=== PATIENT | male | born 1965 | race Caucasian/White ===

== ENCOUNTER → 2016-12-05 | Outpatient (CLI) | payer BC, OTHER ==
[2016-12-05 10:05] LABS: Basophils % (A) 1 %; CH 31.6; CHCM 33.5; Eosinophils # (A) 0.2 k/uL (0-0.7); Eosinophils % (A) 2 %; HCT 44.2 % (39.0-53.0); HDW 2.91; HGB 14.5 gm/dL (13.0-17.5); Luc # (Auto) 0.22; Luc % (Auto) 3; Lymphocytes # (A) 1.7 k/uL (1.0-4.8); Lymphocytes % (A) 25 %; MCH 31.1 pg (25.0-35.0); MCHC 32.8 g/dL (31.0-37.0); Mean Platelet Volume 9.8; Monocytes # (A) 0.7 k/uL (0-1.0); Monocytes % (A) 10 %; Neutrophils # (A) 4.2 k/uL (1.3-7.7); Neutrophils % (A) 60 %; RBC 4.65 m/uL (4.30-5.90); RDW 14.5 % (11.5-15.5); WBC (Perox) 7.07
[2016-12-05 11:12] LABS: Erythrocyte Sedimentation Rate 2 mm/hr (0-15)
[2016-12-05 11:15] LABS: Hemoglobin A1C 5.4 % (4.2-6.1)
[2016-12-05 11:25] LABS: Anion Gap 12 mmol/L; C Reactive Protein <5.0 mg/L (<10.0); Calcium 9.2 mg/dL (8.4-10.2); Carbon Dioxide 24 mmol/L (22-30); Chloride 106 mmol/L (98-107); Cholesterol 105 mg/dL (<200); Creatine Kinase 93 U/L (55-170); Glucose 104 mg/dL (74-99); HDL Cholesterol 77 mg/dL (40-60); Non-African American GFR(MDRD) >60 (>60 ml/min/1.73 sqM); Sodium 142 mmol/L (137-145); Total Bilirubin 0.9 mg/dL (0.2-1.3); Total Protein 7.6 g/dL (6.3-8.2); Triglycerides 48 mg/dL (<150)
[2016-12-05 11:39] LABS: ALT 48 U/L (21-72); AST 30 U/L (17-59); Alkaline Phosphatase 63 U/L (38-126); Blood Urea Nitrogen 17 mg/dL (9-20); Magnesium 2.1 mg/dL (1.6-2.3); Potassium 4.8 mmol/L (3.5-5.1)
[2016-12-05 11:49] LABS: Prostate Specific Antigen 0.14 ng/mL (0.00-4.00)
== END | disposition home or self-care (01) ==
LOC: LABWHC1 08:46
PROVIDERS: ATTEND Internal Medicine
DX: D64.9 Anemia, unspecified (principal); E11.9 Type 2 diabetes mellitus without complications; E78.5 Hyperlipidemia, unspecified; I10 Essential (primary) hypertension; E03.9 Hypothyroidism, unspecified; E55.9 Vitamin D deficiency, unspecified
CPT/HCPCS: 36415; 80053; 80061; 82306; 82550; 83036; 83735; 84153; 85025; 85652; 86140

== ENCOUNTER 2017-01-05 17:44 | Emergency (ER) | payer BC ==
[2017-01-05 17:47] VITALS: BP 169/72; PULSE 58; RESP 18; TEMP 97
[2017-01-05] MEDS ORDERED: IBUPROFEN 800 MG TAB PO STA (18:03)
--- NOTE | 2017-01-05 18:19 | ED ---
URI HPI - General Chief Complaint: Upper Respiratory Infection Stated Complaint: Pain all over Time Seen by Provider: 01/05/17 17:53 Source: patient, RN notes reviewed Mode of arrival: ambulatory Limitations: no limitations - History of Present Illness Initial Comments: Patient is a 51-year-old male with a chief complaint of sore throat, cough, and pain all over for the past few days. He denies any fever. He states that he recently did have a headache. The patient has a history of prostate problems and diabetes. Patient reports that he has had a poor appetite today. He states that he has had a history of anemia as well. He states that when he felt this tired it was related to his anemia in the past. Patient denies any chest pain, shortness of breath, nausea, vomiting, abdominal pain. Patient denies any history of sick contacts. He denies any travel history. - Related Data Home Medications Medication Instructions Recorded Confirmed Nilotinib HCl [Tasigna] 300 mg PO BID 09/13/14 01/05/17 Atorvastatin [Lipitor] 40 mg PO DAILY 01/05/17 01/05/17 Ibuprofen [Motrin] 600 mg PO TID PRN 01/05/17 01/05/17 Ranitidine HCl 150 mg PO DAILY 01/05/17 01/05/17 Tamsulosin HCl [Flomax] 0.4 mg PO DAILY 01/05/17 01/05/17 metFORMIN HCL [Glucophage] 500 mg PO BID 01/05/17 01/05/17 Previous Rx's Medication Instructions Recorded Clopidogrel [Plavix] 75 mg PO DAILY #30 tab 10/12/15 Metoprolol Tartrate [Lopressor] 25 mg PO BID #60 tab 10/12/15 Nitroglycerin Sl Tabs [Nitrostat] 0.4 mg SUBLINGUAL Q5M PRN #25 tab 10/12/15 Azithromycin [Zithromax Z-pack] 250 mg PO DIRECTED #6 tab 01/05/17 methylPREDNISolone Dose Pack 4 mg PO DIRECTED #21 package 01/05/17 [Medrol Dose Pack] Allergies Allergy/AdvReac Type Severity Reaction Status Date / Time No Known Allergies Allergy Verified 01/05/17 17:47 Review of Systems ROS Statement: Those systems with pertinent positive or pertinent negative responses have been documented in the HPI. ROS Other: All systems not noted in ROS Statement are negative. Past Medical History Past Medical History: Chest Pain / Angina, Diabetes Mellitus, GERD/Reflux, Hypertension, Myocardial Infarction ([place]), Prostate Disorder Additional Past Medical History / Comment(s): patient states "I have prostate problems" Last Myocardial Infarction Date:: 10/09/2015 History of Any Multi-Drug Resistant Organisms: None Reported Past Surgical History: Appendectomy, Heart Catheterization With Stent Additional Past Surgical History / Comment(s): heart cath with 2 stents to circ. Past Anesthesia/Blood Transfusion Reactions: No Reported Reaction Date of Last Stent Placement:: 10/09/15 Past Psychological History: No Psychological Hx Reported Smoking Status: Never smoker Past Alcohol Use History: None Reported Past Drug Use History: None Reported - Past Family History Father Family Medical History: Diabetes Mellitus Mother Family Medical History: Diabetes Mellitus General Exam - General Exam Comments Initial Comments: Well-appearing 51-year-old male. No acute distress. Limitations: no limitations General appearance: alert, in no apparent distress Head exam: Present: atraumatic, normocephalic, normal inspection Eye exam: Present: normal appearance, PERRL, EOMI. Absent: scleral icterus, conjunctival injection, periorbital swelling ENT exam: Present: normal exam, mucous membranes moist Neck exam: Present: normal inspection. Absent: tenderness, meningismus, lymphadenopathy Respiratory exam: Present: normal lung sounds bilaterally. Absent: respiratory distress, wheezes, rales, rhonchi, stridor Cardiovascular Exam: Present: regular rate, normal rhythm, normal heart sounds. Absent: systolic murmur, diastolic murmur, rubs, gallop, clicks GI/Abdominal exam: Present: soft, normal bowel sounds. Absent: distended, tenderness, guarding, rebound, rigid Extremities exam: Present: normal inspection, full ROM, normal capillary refill. Absent: tenderness, pedal edema, joint swelling, calf tenderness Back exam: Present: normal inspection Neurological exam: Present: alert, oriented X3, CN II-XII intact Psychiatric exam: Present: normal affect, normal mood Skin exam: Present: warm, dry, intact, normal color. Absent: rash Course Vital Signs 01/05/17 17:45 Temperature 97.0 F L Pulse Rate 58 L Respiratory 18 Rate Blood Pressure 169/72 O2 Sat by Pulse 99 Oximetry Medical Decision Making - Medical Decision Making Patient is a 51-year-old male with a chief complaint of increased back pain and pain all over for the past few days. Patient states that he has had an increased cough and sore throat for the past day. He denies any fever. He states that he recently did have a headache. The patient has a history of prostate problems and diabetes. Patient reports that he has had a poor appetite today. He states that he has had a history of anemia as well. CBC and BMP obtained. No evidence of any acute abnormality is. Patient is negative influenza screen. Chest x-ray was also negative. Patient likely has a viral syndrome. Patient will be discharged with a prescription for Medrol Dosepak for his cough and azithromycin as this can talk as been persistent for the past few weeks. Patient agrees. I advised the patient he needs to follow up with primary care provider. Patient understands treatment plan will comply. Return parameters were discussed. - Lab Data Result diagrams: 01/05/17 18:15 01/05/17 18:15 Lab Results 01/05/17 01/05/17 01/05/17 Range/Units 18:15 18:15 18:15 WBC 4.8 (3.8-10.6) k/uL RBC 4.58 (4.30-5.90) m/uL Hgb 14.1 (13.0-17.5) gm/dL Hct 41.5 (39.0-53.0) % MCV 90.5 (80.0-100.0) fL MCH 30.8 (25.0-35.0) pg MCHC 34.0 (31.0-37.0) g/dL RDW 13.2 (11.5-15.5) % Plt Count 162 (150-450) k/uL Neutrophils % 56 % Lymphocytes % 29 % Monocytes % 9 % Eosinophils % 3 % Basophils % 0 % Neutrophils # 2.7 (1.3-7.7) k/uL Lymphocytes # 1.4 (1.0-4.8) k/uL Monocytes # 0.4 (0-1.0) k/uL Eosinophils # 0.1 (0-0.7) k/uL Basophils # 0.0 (0-0.2) k/uL Sodium 139 (137-145) mmol/L Potassium 3.6 (3.5-5.1) mmol/L Chloride 105 (98-107) mmol/L Carbon Dioxide 23 (22-30) mmol/L Anion Gap 11 mmol/L BUN 16 (9-20) mg/dL Creatinine 0.61 L (0.66-1.25) mg/dL Est GFR (MDRD) Af Amer >60 (>60 ml/min/1.73 sqM) Est GFR (MDRD) Non-Af >60 (>60 ml/min/1.73 sqM) Glucose 124 H (74-99) mg/dL Calcium 9.0 (8.4-10.2) mg/dL Urine Color Urine Appearance (Clear) Urine pH (5.0-8.0) Ur Specific [place] (1.001-1.035) Urine Protein (Negative) Urine Glucose (UA) (Negative) Urine Ketones (Negative) Urine Blood (Negative) Urine Nitrite (Negative) Urine Bilirubin (Negative) Urine Urobilinogen (<2.0) mg/dL Ur Leukocyte Esterase (Negative) Influenza Type A RNA Not Detected (Not Detectd) Influenza Type B (PCR) Not Detected (Not Detectd) 01/05/17 Range/Units 18:50 WBC (3.8-10.6) k/uL RBC (4.30-5.90) m/uL Hgb (13.0-17.5) gm/dL Hct (39.0-53.0) % MCV (80.0-100.0) fL MCH (25.0-35.0) pg MCHC (31.0-37.0) g/dL RDW (11.5-15.5) % Plt Count (150-450) k/uL Neutrophils % % Lymphocytes % % Monocytes % % Eosinophils % % Basophils % % Neutrophils # (1.3-7.7) k/uL Lymphocytes # (1.0-4.8) k/uL Monocytes # (0-1.0) k/uL Eosinophils # (0-0.7) k/uL Basophils # (0-0.2) k/uL Sodium (137-145) mmol/L Potassium (3.5-5.1) mmol/L Chloride (98-107) mmol/L Carbon Dioxide (22-30) mmol/L Anion Gap mmol/L BUN (9-20) mg/dL Creatinine (0.66-1.25) mg/dL Est GFR (MDRD) Af Amer (>60 ml/min/1.73 sqM) Est GFR (MDRD) Non-Af (>60 ml/min/1.73 sqM) Glucose (74-99) mg/dL Calcium (8.4-10.2) mg/dL Urine Color Yellow Urine Appearance Clear (Clear) Urine pH 6.5 (5.0-8.0) Ur Specific [place] 1.015 (1.001-1.035) Urine Protein Negative (Negative) Urine Glucose (UA) 3+ H (Negative) Urine Ketones Negative (Negative) Urine Blood Negative (Negative) Urine Nitrite Negative (Negative) Urine Bilirubin Negative (Negative) Urine Urobilinogen 2.0 (<2.0) mg/dL Ur Leukocyte Esterase Negative (Negative) Influenza Type A RNA (Not Detectd) Influenza Type B (PCR) (Not Detectd) - Radiology Data Radiology results: report reviewed Chest x-ray shows a normal chest. No change. Disposition Clinical Impression: Upper respiratory infection, Fatigue Disposition: HOME SELF-CARE Condition: Good Instructions: Upper Respiratory Infection (ED) Additional Instructions: Patient advised to follow up with primary care provider. Take medication as prescribed. Return to emergency department course signs or symptoms occur. Prescriptions: Azithromycin [Zithromax Z-pack] 250 mg PO DIRECTED #6 tab methylPREDNISolone Dose Pack [Medrol Dose Pack] 4 mg PO DIRECTED #21 package Referrals: Bennett Tran MD [Primary Care Provider] - 1-2 days Time of Disposition: 19:15
[2017-01-05 18:32] LABS: Basophils % (A) 0 %; CHCM 34.4; Eosinophils # (A) 0.1 k/uL (0-0.7); Eosinophils % (A) 3 %; HCT 41.5 % (39.0-53.0); HDW 2.71; HGB 14.1 gm/dL (13.0-17.5); Luc # (Auto) 0.19; Luc % (Auto) 4; Lymphocytes # (A) 1.4 k/uL (1.0-4.8); Lymphocytes % (A) 29 %; MCH 30.8 pg (25.0-35.0); MCV 90.5 fL (80.0-100.0); Monocytes # (A) 0.4 k/uL (0-1.0); Monocytes % (A) 9 %; Neutrophils # (A) 2.7 k/uL (1.3-7.7); Neutrophils % (A) 56 %; RBC 4.58 m/uL (4.30-5.90); RDW 13.2 % (11.5-15.5); WBC 4.8 k/uL (3.8-10.6); WBC (Perox) 4.74
--- NOTE | 2017-01-05 18:40 | XR ---
EXAMINATION TYPE: XR chest 2V DATE OF EXAM: 01/05/2017 6:37 PM COMPARISON: 06/15/2016 HISTORY: Cough TECHNIQUE: Frontal and lateral views of the chest are obtained. FINDINGS: Heart and mediastinum are normal. Lungs are clear. Diaphragm is normal. Bony thorax is int act. IMPRESSION: Normal chest. No change.
[2017-01-05 18:45] LABS: Anion Gap 11 mmol/L; Blood Urea Nitrogen 16 mg/dL (9-20); Carbon Dioxide 23 mmol/L (22-30); Chloride 105 mmol/L (98-107); Glucose 124 mg/dL (74-99); Non-African American GFR(MDRD) >60 (>60 ml/min/1.73 sqM); Potassium 3.6 mmol/L (3.5-5.1); Sodium 139 mmol/L (137-145)
[2017-01-05 19:07] LABS: Appearance,Urine Clear (Clear); Bilirubin,Urine Negative (Negative); Glucose,Urine (UA) 3+ (Negative); Ketones,Urine Negative (Negative); Leukocyte Esterase,Urine Negative (Negative); Nitrite,Urine Negative (Negative); PH, Urine 6.5 (5.0-8.0); Protein,Urine Negative (Negative); Specific Gravity,Urine 1.015 (1.001-1.035); UA Billing (MACRO vs. MICRO) CHEM
[2017-01-05] MEDS ORDERED: ACETAMINOPHEN TAB 500 MG TAB PO STA (19:24)
== END 2017-01-05 19:31 | disposition home or self-care (01) ==
LOC: EC 17:44
DX: J06.9 Acute upper respiratory infection, unspecified (principal); R53.83 Other fatigue; I10 Essential (primary) hypertension; E11.9 Type 2 diabetes mellitus without complications; K21.9 Gastro-esophageal reflux disease without esophagitis; N42.9 Disorder of prostate, unspecified; Z95.5 Presence of coronary angioplasty implant and graft; Z79.02 Long term (current) use of antithrombotics/antiplatelets; Z79.899 Other long term (current) drug therapy; Z79.84 Long term (current) use of oral hypoglycemic drugs
CPT/HCPCS: 36415; 71020; 80048; 81003; 85025; 87502; 99283

== ENCOUNTER → 2017-01-05 | Outpatient (CLI) | payer BC ==
--- NOTE | 2017-01-05 11:30 | US ---
EXAMINATION TYPE: US scrotum with doppler. Grayscale and color Doppler Duplex imaging performed of chris ziegler scrotum. DATE OF EXAM: 01/05/2017 11:17 AM COMPARISON: NONE CLINICAL HISTORY: L TESTICLE NODULE N50.9. EXAM MEASUREMENTS: TESTICLES: Right Testicle: 3.4 x 2.1 x 2.8 cm Left Testicle: 2.9 x 2.3 x 2.7 cm cyst measuring 0.3 x 0.3 x 0.3cm EPIDIDYMIS HEAD: Right Epididymis: 1.0 cm Left Epididymis: 1.0 cm cyst measuring 0.4cm There was normal vascular flow present bilaterally. Presence of hydroceles: no Presence of varicoceles: no IMPRESSION: 1. SMALL LEFT-SIDED INTRATESTICULAR CYST MEASURING 3 MM. 2. 4 MM LEFT EPIDIDYMAL CYST. THESE FINDINGS WERE PRESENT PREVIOUSLY.
== END | disposition home or self-care (01) ==
LOC: RADUSWWP 08:56
PROVIDERS: ATTEND Internal Medicine
DX: N50.3 Cyst of epididymis (principal)
CPT/HCPCS: 76870; 93975

== ENCOUNTER → 2017-03-30 | Outpatient (CLI) | payer BC ==
[2017-03-30 13:03] LABS: Basophils % (A) 1 %; CH 31.3; Eosinophils # (A) 0.1 k/uL (0-0.7); Eosinophils % (A) 2 %; HCT 44.6 % (39.0-53.0); HDW 2.64; HGB 14.7 gm/dL (13.0-17.5); Luc # (Auto) 0.14; Luc % (Auto) 3; Lymphocytes % (A) 21 %; MCH 30.6 pg (25.0-35.0); MCV 92.7 fL (80.0-100.0); Mean Platelet Volume 8.6; Monocytes # (A) 0.4 k/uL (0-1.0); Monocytes % (A) 9 %; Neutrophils # (A) 3.1 k/uL (1.3-7.7); Neutrophils % (A) 65 %; RBC 4.81 m/uL (4.30-5.90); RDW 14.1 % (11.5-15.5); WBC 4.8 k/uL (3.8-10.6); WBC (Perox) 4.66
[2017-03-30 13:25] LABS: ALT 69 U/L (21-72); AST 30 U/L (17-59); Alkaline Phosphatase 92 U/L (38-126); Anion Gap 12 mmol/L; Blood Urea Nitrogen 13 mg/dL (9-20); C Reactive Protein <5.0 mg/L (<10.0); Calcium 9.5 mg/dL (8.4-10.2); Carbon Dioxide 24 mmol/L (22-30); Chloride 102 mmol/L (98-107); Cholesterol 118 mg/dL (<200); Creatine Kinase 47 U/L (55-170); Glucose 230 mg/dL (74-99); HDL Cholesterol 72 mg/dL (40-60); Non-African American GFR(MDRD) >60 (>60 ml/min/1.73 sqM); Sodium 138 mmol/L (137-145); Total Bilirubin 1.5 mg/dL (0.2-1.3); Triglycerides 64 mg/dL (<150)
[2017-03-30 13:45] LABS: Prostate Specific Antigen 0.12 ng/mL (0.00-4.00)
[2017-03-30 16:52] LABS: Erythrocyte Sedimentation Rate 5 mm/hr (0-15)
[2017-03-30 17:30] LABS: Hemoglobin A1C 7.6 % (4.2-6.1)
== END | disposition home or self-care (01) ==
LOC: LABWHC1 12:25
PROVIDERS: ATTEND Internal Medicine
DX: E78.5 Hyperlipidemia, unspecified (principal); C92.10 Chronic myeloid leukemia, BCR/ABL-positive, not having achieved remission; D64.9 Anemia, unspecified; E11.9 Type 2 diabetes mellitus without complications; E55.9 Vitamin D deficiency, unspecified
CPT/HCPCS: 36415; 80053; 80061; 82306; 82550; 83036; 84153; 85025; 85652; 86140

== ENCOUNTER 2017-05-10 16:57 | Observation (INO) | payer BC ==
[2017-05-10] MEDS ORDERED: SODIUM CHLORIDE 0.9% 1,000 ML IV STA (17:35)
[2017-05-10] MEDS ORDERED: ASPIRIN 81 MG CHEW PO STA (17:35)
--- NOTE | 2017-05-10 17:38 | ED ---
General Adult HPI - General Source: patient, family, RN notes reviewed Mode of arrival: wheelchair Limitations: language barrier <Dana Parmar - Last Filed: 05/10/17 20:20> <Joshua Grace - Last Filed: 05/10/17 20:43> - General Chief complaint: Recheck/Abnormal Lab/Rx Stated complaint: All Over Pain Time Seen by Provider: 05/10/17 17:20 - History of Present Illness Initial comments: Patient is a 51-year-old male presents emergency room for evaluation of all over body pain. Patient states pain began about 3 days ago. Patient states he has pain in his neck, chest and all of his joints. Patient denies throat pain, ear pain, headache, dizziness, changes in vision, nausea, vomiting, fevers. Patient does state he is having the chills. Patient states that he's been having chest pain for the past 3 days. Patient states he has a history of CT about a year ago and had 2 stents placed. Patient states it feels like a knife stabbing his chest. Patient states he feels slightly short of breath. Patient denies smoking. Patient denies alcohol or drug use. Patient denies abdominal pain. Patient denies pain or burning during urination, trouble urinating or blood in urine. Patient denies constipation or diarrhea. Patient states he taking ibuprofen with little relief of symptoms. (Dana Parmar) - Related Data Home Medications Medication Instructions Recorded Confirmed Nilotinib HCl [Tasigna] 300 mg PO BID 09/13/14 05/10/17 Atorvastatin [Lipitor] 40 mg PO DAILY 01/05/17 05/10/17 Tamsulosin HCl [Flomax] 0.4 mg PO DAILY 01/05/17 05/10/17 metFORMIN HCL [Glucophage] 500 mg PO BID 01/05/17 05/10/17 Olopatadine HCl [Pataday] 1 drop BOTH EYES BID 05/10/17 05/10/17 Previous Rx's Medication Instructions Recorded Clopidogrel [Plavix] 75 mg PO DAILY #30 tab 10/12/15 Nitroglycerin Sl Tabs [Nitrostat] 0.4 mg SUBLINGUAL Q5M PRN #25 tab 10/12/15 Allergies Allergy/AdvReac Type Severity Reaction Status Date / Time No Known Allergies Allergy Verified 05/10/17 17:26 Review of Systems ROS Other: All systems not noted in ROS Statement are negative. <Dana Parmar - Last Filed: 05/10/17 20:20> ROS Other: All systems not noted in ROS Statement are negative. <Joshua Grace - Last Filed: 05/10/17 20:43> ROS Statement: Those systems with pertinent positive or pertinent negative responses have been documented in the HPI. Past Medical History Past Medical History: Chest Pain / Angina, Diabetes Mellitus, GERD/Reflux, Hypertension, Myocardial Infarction ([place]), Prostate Disorder Additional Past Medical History / Comment(s): patient states "I have prostate problems" Last Myocardial Infarction Date:: 10/09/2015 History of Any Multi-Drug Resistant Organisms: None Reported Past Surgical History: Appendectomy, Heart Catheterization With Stent Additional Past Surgical History / Comment(s): heart cath with 2 stents to circ. Past Anesthesia/Blood Transfusion Reactions: No Reported Reaction Date of Last Stent Placement:: 10/09/15 Past Psychological History: No Psychological Hx Reported Smoking Status: Never smoker Past Alcohol Use History: None Reported Past Drug Use History: None Reported - Past Family History Father Family Medical History: Diabetes Mellitus Mother Family Medical History: Diabetes Mellitus <Dana Parmar - Last Filed: 05/10/17 20:20> General Exam Limitations: language barrier General appearance: alert, in no apparent distress Head exam: Present: atraumatic, normocephalic, normal inspection Eye exam: Present: normal appearance ENT exam: Present: normal exam Neck exam: Present: normal inspection Respiratory exam: Present: normal lung sounds bilaterally, chest wall tenderness. Absent: respiratory distress Cardiovascular Exam: Present: regular rate, normal rhythm, normal heart sounds GI/Abdominal exam: Present: soft, normal bowel sounds. Absent: distended, tenderness, guarding, rebound, rigid Extremities exam: Present: normal inspection Back exam: Present: normal inspection Neurological exam: Present: alert, oriented X3, CN II-XII intact, normal gait Psychiatric exam: Present: normal affect, normal mood Skin exam: Present: warm, dry, intact, normal color. Absent: rash <Dana Parmar - Last Filed: 05/10/17 20:20> <Joshua Grace - Last Filed: 05/10/17 20:43> - General Exam Comments Initial Comments: Sitting in exam room, no acute distress. (Dana Parmar) EKG Findings - EKG Comments: EKG Findings:: Normal sinus rhythm, ventricular rate 64 bpm, HI interval 138 milliseconds, QRS duration 92 ms, QT/QTc 408/420 ms <Dana Parmar - Last Filed: 05/10/17 20:20> Medical Decision Making - Lab Data Result diagrams: 05/10/17 17:50 05/10/17 17:50 <Dana Parmar - Last Filed: 05/10/17 20:20> - Lab Data Result diagrams: 05/10/17 17:50 05/10/17 17:50 <Joshua Grace - Last Filed: 05/10/17 20:43> - Medical Decision Making I spoke with Dr. Calderon aren't this patient be admitted his service for atypical chest pain with repeat cardiac enzymes and potassium supplementation. Dr. Grace (Joshua Grace) - Lab Data Lab Results 05/10/17 05/10/17 05/10/17 Range/Units 17:50 17:50 17:50 WBC 3.9 (3.8-10.6) k/uL RBC 4.33 (4.30-5.90) m/uL Hgb 13.4 (13.0-17.5) gm/dL Hct 39.2 (39.0-53.0) % MCV 90.6 (80.0-100.0) fL MCH 31.0 (25.0-35.0) pg MCHC 34.2 (31.0-37.0) g/dL RDW 14.5 (11.5-15.5) % Plt Count 166 (150-450) k/uL Neutrophils % 50 % Lymphocytes % 35 % Monocytes % 9 % Eosinophils % 2 % Basophils % 0 % Neutrophils # 2.0 (1.3-7.7) k/uL Lymphocytes # 1.4 (1.0-4.8) k/uL Monocytes # 0.3 (0-1.0) k/uL Eosinophils # 0.1 (0-0.7) k/uL Basophils # 0.0 (0-0.2) k/uL PT (9.0-12.0) sec INR (<1.2) APTT (22.0-30.0) sec D-Dimer (<0.60) mg/L FEU Sodium 136 L (137-145) mmol/L Potassium 3.3 L (3.5-5.1) mmol/L Chloride 104 (98-107) mmol/L Carbon Dioxide 24 (22-30) mmol/L Anion Gap 8 mmol/L BUN 12 (9-20) mg/dL Creatinine 0.65 L (0.66-1.25) mg/dL Est GFR (MDRD) Af Amer >60 (>60 ml/min/1.73 sqM) Est GFR (MDRD) Non-Af >60 (>60 ml/min/1.73 sqM) Glucose 252 H (74-99) mg/dL Calcium 8.7 (8.4-10.2) mg/dL Magnesium 1.8 (1.6-2.3) mg/dL Total Bilirubin 1.6 H (0.2-1.3) mg/dL AST 44 (17-59) U/L ALT 109 H (21-72) U/L Alkaline Phosphatase 76 (38-126) U/L Total Creatine Kinase 92 (55-170) U/L CK-MB (CK-2) 1.3 (0.0-2.4) ng/mL CK-MB (CK-2) Rel Index 1.4 Troponin I <0.012 (0.000-0.034) ng/mL Total Protein 6.3 (6.3-8.2) g/dL Albumin 3.7 (3.5-5.0) g/dL 05/10/17 Range/Units 17:50 WBC (3.8-10.6) k/uL RBC (4.30-5.90) m/uL Hgb (13.0-17.5) gm/dL Hct (39.0-53.0) % MCV (80.0-100.0) fL MCH (25.0-35.0) pg MCHC (31.0-37.0) g/dL RDW (11.5-15.5) % Plt Count (150-450) k/uL Neutrophils % % Lymphocytes % % Monocytes % % Eosinophils % % Basophils % % Neutrophils # (1.3-7.7) k/uL Lymphocytes # (1.0-4.8) k/uL Monocytes # (0-1.0) k/uL Eosinophils # (0-0.7) k/uL Basophils # (0-0.2) k/uL PT 11.2 (9.0-12.0) sec INR 1.1 (<1.2) APTT 25.7 (22.0-30.0) sec D-Dimer <0.17 (<0.60) mg/L FEU Sodium (137-145) mmol/L Potassium (3.5-5.1) mmol/L Chloride (98-107) mmol/L Carbon Dioxide (22-30) mmol/L Anion Gap mmol/L BUN (9-20) mg/dL Creatinine (0.66-1.25) mg/dL Est GFR (MDRD) Af Amer (>60 ml/min/1.73 sqM) Est GFR (MDRD) Non-Af (>60 ml/min/1.73 sqM) Glucose (74-99) mg/dL Calcium (8.4-10.2) mg/dL Magnesium (1.6-2.3) mg/dL Total Bilirubin (0.2-1.3) mg/dL AST (17-59) U/L ALT (21-72) U/L Alkaline Phosphatase (38-126) U/L Total Creatine Kinase (55-170) U/L CK-MB (CK-2) (0.0-2.4) ng/mL CK-MB (CK-2) Rel Index Troponin I (0.000-0.034) ng/mL Total Protein (6.3-8.2) g/dL Albumin (3.5-5.0) g/dL Disposition Decision Date: 05/10/17 <Dana Parmar - Last Filed: 05/10/17 20:20> <Joshua Grace - Last Filed: 05/10/17 20:43> Clinical Impression: Atypical chest pain Disposition: ADMITTED IP TO THIS [facility] Condition: Stable Referrals: Alexis Bean MD [Primary Care Provider] - 1-2 days
[2017-05-10 18:05] LABS: Basophils % (A) 0 %; CH 31.8; CHCM 35.3; Eosinophils # (A) 0.1 k/uL (0-0.7); Eosinophils % (A) 2 %; HCT 39.2 % (39.0-53.0); HDW 2.77; HGB 13.4 gm/dL (13.0-17.5); Luc # (Auto) 0.14; Luc % (Auto) 4; Lymphocytes # (A) 1.4 k/uL (1.0-4.8); Lymphocytes % (A) 35 %; MCHC 34.2 g/dL (31.0-37.0); MCV 90.6 fL (80.0-100.0); Mean Platelet Volume 9.4; Monocytes # (A) 0.3 k/uL (0-1.0); Monocytes % (A) 9 %; Neutrophils % (A) 50 %; RBC 4.33 m/uL (4.30-5.90); RDW 14.5 % (11.5-15.5); WBC 3.9 k/uL (3.8-10.6); WBC (Perox) 3.88
--- NOTE | 2017-05-10 18:09 | XR ---
EXAMINATION TYPE: XR chest 2V DATE OF EXAM: 05/10/2017 COMPARISON: Prior chest x-ray 01/05/2017 HISTORY: Chest pain TECHNIQUE: Frontal and lateral views of the chest are obtained. FINDINGS: There is no focal air space opacity, pleural effusion, or pneumothorax seen. The cardiac silhouette size is within normal limits. The osseous structures are intact. IMPRESSION: No acute cardiopulmonary process.
[2017-05-10 18:15] LABS: ALT 109 U/L (21-72); AST 44 U/L (17-59); Alkaline Phosphatase 76 U/L (38-126); Anion Gap 8 mmol/L; Blood Urea Nitrogen 12 mg/dL (9-20); Calcium 8.7 mg/dL (8.4-10.2); Carbon Dioxide 24 mmol/L (22-30); Chloride 104 mmol/L (98-107); Glucose 252 mg/dL (74-99); Magnesium 1.8 mg/dL (1.6-2.3); Non-African American GFR(MDRD) >60 (>60 ml/min/1.73 sqM); Potassium 3.3 mmol/L (3.5-5.1); Sodium 136 mmol/L (137-145); Total Bilirubin 1.6 mg/dL (0.2-1.3); Total Protein 6.3 g/dL (6.3-8.2)
[2017-05-10 18:19] LABS: INR 1.1 (<1.2); Partial Thromboplastin Time 25.7 sec (22.0-30.0); Prothrombin Time 11.2 sec (9.0-12.0)
[2017-05-10 18:58] LABS: Creatine Kinase 92 U/L (55-170)
[2017-05-10 19:12] LABS: Creatine Kinase MB 1.3 ng/mL (0.0-2.4); Troponin I <0.012 ng/mL (0.000-0.034)
[2017-05-10] MEDS ORDERED: POTASSIUM CHLORIDE ER 20 MEQ TAB.ER PO STA (19:41)
[2017-05-10] MEDS ORDERED: ONDANSETRON 4 MG/2 ML VIAL IVP PRN (20:15)
[2017-05-10] MEDS ORDERED: ACETAMINOPHEN TAB 325 MG TAB PO PRN (20:15)
[2017-05-10] MEDS ORDERED: KETOROLAC 30 MG/ML 1 ML VIAL IVP PRN (20:15)
[2017-05-10] MEDS ORDERED: MORPHINE SULFATE 4 MG/ML SYRINGE IV PRN (20:15)
[2017-05-10] MEDS ORDERED: NALOXONE 0.4 MG/ML 1 ML VIAL IV PRN (20:15)
[2017-05-10] MEDS ORDERED: NITROGLYCERIN SL TABS 0.4 MG TAB SUBLINGUAL PRN (20:18)
[2017-05-10 21:00] VITALS: RESP 16
[2017-05-10] MEDS ORDERED: NILOTINIB HCL 300 MG PO SCH (21:00)
[2017-05-10 21:21] LABS: Glucose,Whole Blood 148 mg/dL (75-99)
[2017-05-10 22:30] VITALS: BMI 19.2
[2017-05-10 22:35] LABS: Hemoglobin A1C 7.4 % (4.2-6.1)
[2017-05-10] MEDS: SODIUM CHLORIDE 0.9% 1,000 ML IV SCH (23:39)
[2017-05-10] MEDS: KETOTIFEN 0.025% OPHTH DROPS 5 ML BTL BOTH EYES SCH (23:40)
[2017-05-11] MEDS ORDERED: HEPARIN SODIUM,PORCINE 5,000 UNIT/ML 1 ML VIAL IV STA (00:14)
[2017-05-11 01:18] LABS: Creatine Kinase 95 U/L (55-170)
[2017-05-11 01:30] LABS: Creatine Kinase MB 1.5 ng/mL (0.0-2.4); Troponin I <0.012 ng/mL (0.000-0.034)
[2017-05-11 06:06] LABS: Creatine Kinase 82 U/L (55-170)
[2017-05-11 06:19] LABS: Creatine Kinase MB 1.4 ng/mL (0.0-2.4); Troponin I <0.012 ng/mL (0.000-0.034)
[2017-05-11 06:59] LABS: Glucose,Whole Blood 111 mg/dL (75-99)
[2017-05-11] MEDS: SODIUM CHLORIDE 0.9% 1,000 ML IV SCH (08:22)
[2017-05-11] MEDS ORDERED: CLOPIDOGREL 75 MG TAB PO SCH (09:00)
[2017-05-11] MEDS ORDERED: ATORVASTATIN 40 MG TAB PO SCH (09:00)
[2017-05-11] MEDS ORDERED: TAMSULOSIN 0.4 MG CAP.ER.24H PO SCH (09:00)
[2017-05-11 09:25] LABS: Basophils % (A) 0 %; CH 31.3; CHCM 33.6; Eosinophils # (A) 0.1 k/uL (0-0.7); Eosinophils % (A) 2 %; HCT 41.4 % (39.0-53.0); HDW 2.79; HGB 13.9 gm/dL (13.0-17.5); Luc # (Auto) 0.16; Luc % (Auto) 3; Lymphocytes # (A) 1.4 k/uL (1.0-4.8); Lymphocytes % (A) 30 %; MCH 31.5 pg (25.0-35.0); MCHC 33.6 g/dL (31.0-37.0); MCV 93.6 fL (80.0-100.0); Monocytes # (A) 0.6 k/uL (0-1.0); Monocytes % (A) 12 %; Neutrophils # (A) 2.4 k/uL (1.3-7.7); Neutrophils % (A) 52 %; RBC 4.43 m/uL (4.30-5.90); RDW 13.8 % (11.5-15.5); WBC 4.7 k/uL (3.8-10.6); WBC (Perox) 4.93
[2017-05-11 09:29] LABS: ALT 105 U/L (21-72); AST 41 U/L (17-59); Alkaline Phosphatase 70 U/L (38-126); Anion Gap 8 mmol/L; Blood Urea Nitrogen 11 mg/dL (9-20); Calcium 8.6 mg/dL (8.4-10.2); Carbon Dioxide 19 mmol/L (22-30); Chloride 112 mmol/L (98-107); Glucose 110 mg/dL (74-99); Non-African American GFR(MDRD) >60 (>60 ml/min/1.73 sqM); Sodium 139 mmol/L (137-145); Total Bilirubin 0.9 mg/dL (0.2-1.3); Total Protein 6.2 g/dL (6.3-8.2)
[2017-05-11] MEDS: INSULIN LISPRO (humaLOG) 300 UNIT/3 ML VIAL SQ SCH ×2 (10:07→12:51)
--- NOTE | 2017-05-11 10:27 | P.CRDCN ---
History of Present Illness Consult date: 05/11/17 History of present illness: This is a 51-year-old gentleman with history of ischemic heart disease and previous stent placement done in 2014, came to the emergency room with complaints of generalized body aches, back pain and leg pain. His potassium slightly low. The pains and up have been going on for some time. His cardiac enzymes are negative. EKGs did not reveal any acute changes. His potassium is corrected. Patient is advised to eat couple of banal onset a to correct his hypokalemia. Patient is advised to hold Lipitor for 10 days until he sees Dr. Deleon. The pains may be related to his Lipitor. From Cardec standpoint patient could be discharged home. He recently had a stress echo that was negative for ischemia. Past Medical History Past Medical History: Chest Pain / Angina, Diabetes Mellitus, GERD/Reflux, Hypertension, Myocardial Infarction ([place]), Prostate Disorder Additional Past Medical History / Comment(s): patient states "I have prostate problems" Last Myocardial Infarction Date:: 10/09/2015 History of Any Multi-Drug Resistant Organisms: None Reported Past Surgical History: Appendectomy, Heart Catheterization With Stent Additional Past Surgical History / Comment(s): heart cath with 2 stents to circ. Past Anesthesia/Blood Transfusion Reactions: No Reported Reaction Date of Last Stent Placement:: 10/09/15 Past Psychological History: No Psychological Hx Reported Smoking Status: Never smoker Past Alcohol Use History: None Reported Past Drug Use History: None Reported - Past Family History Father Family Medical History: Diabetes Mellitus Mother Family Medical History: Diabetes Mellitus Medications and Allergies Home Medications Medication Instructions Recorded Confirmed Type Nilotinib HCl [Tasigna] 300 mg PO BID 09/13/14 05/10/17 History Atorvastatin [Lipitor] 40 mg PO HS 01/05/17 05/10/17 History Tamsulosin HCl [Flomax] 0.4 mg PO DAILY 01/05/17 05/10/17 History metFORMIN HCL [Glucophage] 500 mg PO BID 01/05/17 05/10/17 History Aspirin EC [Ecotrin Low Dose] 81 mg PO DAILY 05/10/17 05/10/17 History Metoprolol Tartrate 25 mg PO BID 05/10/17 05/10/17 History Olopatadine HCl [Pataday] 1 drop BOTH EYES BID 05/10/17 05/10/17 History Allergies Allergy/AdvReac Type Severity Reaction Status Date / Time No Known Allergies Allergy Verified 05/10/17 17:26 Physical Exam Vitals: Vital Signs Temp Pulse Pulse Resp BP BP Pulse Ox 05/11/17 09:11 95 05/11/17 07:49 97.6 F 50 L 16 132/61 98 05/11/17 04:00 54 L 16 05/11/17 03:24 98.1 F 69 16 123/57 98 05/11/17 00:00 56 L 16 05/10/17 23:46 97.7 F 56 L 16 116/48 100 05/10/17 23:15 54 L 16 05/10/17 21:13 97.7 F 52 L 16 139/61 100 05/10/17 20:59 97.5 F L 84 16 132/70 98 05/10/17 19:11 97.4 F L 53 L 20 120/59 100 05/10/17 17:12 97.2 F L 70 17 135/63 100 Intake and Output 05/10/17 05/11/17 05/11/17 22:59 06:59 14:59 Intake Total 800 Balance 800 Intake: Intake, IV Titration 800 Amount Sodium Chloride 0.9% 1, 800 000 ml @ 100 mls/hr IV . Q10H [facility] Rx#:[id number] Other: Voiding Method Toilet # Voids 1 2 Weight 50.802 kg 50.802 kg Patient Weight 05/12/17 06:59 Weight 50.802 kg GENERAL EXAM: Patient is alert and oriented and doesn't appear to be in any acute distress HEENT: Normocephalic. Normal reaction of pupils, equal size, normal range of extraocular motion. No erythema or exudates in the throat. NECK: No masses, no nuchal rigidity. CHEST: No chest wall deformity. LUNGS: Equal air entry with no crackles or wheeze. HEART: S1 and S2 normal with no audible mumurs or gallops. Regular rhythm, femorals equal on both sides.. ABDOMEN: No hepatosplenomegaly, normal bowel sounds, no guarding or rigidity. SKIN: No rashes CENTRAL NERVOUS SYSTEM: No focal deficits. EXTREMITIES: No cyanosis, clubbing or edema. Results 05/11/17 05:28 05/11/17 05:28 Cardiac Enzymes 05/10/17 05/10/17 05/11/17 Range/Units 17:50 17:50 00:14 AST 44 (17-59) U/L CK-MB (CK-2) 1.3 1.5 (0.0-2.4) ng/mL Troponin I <0.012 <0.012 (0.000-0.034) ng/mL 05/11/17 05/11/17 Range/Units 05:28 05:28 AST 41 (17-59) U/L CK-MB (CK-2) 1.4 (0.0-2.4) ng/mL Troponin I <0.012 (0.000-0.034) ng/mL Coagulation 05/10/17 Range/Units 17:50 PT 11.2 (9.0-12.0) sec APTT 25.7 (22.0-30.0) sec CBC 05/10/17 05/11/17 Range/Units 17:50 05:28 WBC 3.9 4.7 (3.8-10.6) k/uL RBC 4.33 4.43 (4.30-5.90) m/uL Hgb 13.4 13.9 (13.0-17.5) gm/dL Hct 39.2 41.4 (39.0-53.0) % Plt Count 166 182 (150-450) k/uL Comprehensive Metabolic Panel 05/10/17 05/11/17 Range/Units 17:50 05:28 Sodium 136 L 139 (137-145) mmol/L Potassium 3.3 L 4.0 (3.5-5.1) mmol/L Chloride 104 112 H (98-107) mmol/L Carbon Dioxide 24 19 L (22-30) mmol/L BUN 12 11 (9-20) mg/dL Creatinine 0.65 L 0.55 L (0.66-1.25) mg/dL Glucose 252 H 110 H (74-99) mg/dL Calcium 8.7 8.6 (8.4-10.2) mg/dL AST 44 41 (17-59) U/L ALT 109 H 105 H (21-72) U/L Alkaline Phosphatase 76 70 (38-126) U/L Total Protein 6.3 6.2 L (6.3-8.2) g/dL Albumin 3.7 3.6 (3.5-5.0) g/dL Current Medications Generic Name Dose Route Start Last Admin Trade Name Freq PRN Reason Stop Dose Admin Acetaminophen 650 mg 05/10/17 20:15 Tylenol Tab PO Q6HR PRN Mild Pain or Fever > 100.5 Atorvastatin Calcium 40 mg 05/11/17 09:00 Lipitor PO DAILY [facility] Clopidogrel Bisulfate 75 mg 05/11/17 09:00 Plavix PO DAILY [facility] Sodium Chloride 1,000 mls @ 100 mls/hr 05/10/17 20:15 05/11/17 08:22 Saline 0.9% IV Not Given .Q10H [facility] Insulin Human Lispro 0 unit 05/11/17 07:30 05/11/17 10:07 Humalog SQ Not Given ACHS [facility] Protocol Ketotifen Fumarate 1 drops 05/10/17 21:00 05/10/17 23:40 Zaditor BOTH EYES Not Given BID [facility] Morphine Sulfate 4 mg 05/10/17 20:15 Morphine Sulfate (Inj) IV Q4HR PRN Severe Pain Naloxone HCl 0.2 mg 05/10/17 20:15 Narcan IV Q2M PRN Opioid Reversal Nitroglycerin 0.4 mg 05/10/17 20:18 Nitrostat SUBLINGUAL Q5M PRN Chest Pain Non-Formulary Medication 300 mg 05/10/17 21:00 Nilotinib Hcl [Tasigna] PO BID [facility] Ondansetron HCl 4 mg 05/10/17 20:15 Zofran IVP Q8HR PRN Nausea And Vomiting Tamsulosin HCl 0.4 mg 05/11/17 09:00 Flomax PO DAILY [facility] Intake and Output 05/10/17 05/11/17 05/11/17 22:59 06:59 14:59 Intake Total 800 Balance 800 Intake: Intake, IV Titration 800 Amount Sodium Chloride 0.9% 1, 800 000 ml @ 100 mls/hr IV . Q10H [facility] Rx#:[id number] Other: Voiding Method Toilet # Voids 1 2 Weight 50.802 kg 50.802 kg Patient Weight 05/12/17 06:59 Weight 50.802 kg 05/11/17 05:28 05/11/17 05:28 EKG Interpretations (text) Sinus rhythm Assessment and Plan (1) Atypical chest pain Status: Acute (2) HTN (hypertension) Status: Acute (3) Hyperlipemia Status: Acute (4) Presence of stent in left circumflex coronary artery Status: Acute (5) Hypokalemia Status: Acute Plan: His body aches appear to be atypical and most probably related to Lipitor. Patient is advised to hold Lipitor for about 10 days until he sees a Dr. Deleon. Patient could be discharged home from Cardec standpoint. Thank you
[2017-05-11] MEDS: KETOTIFEN 0.025% OPHTH DROPS 5 ML BTL BOTH EYES SCH (11:35)
[2017-05-11 12:18] LABS: Glucose,Whole Blood 200 mg/dL (75-99)
[2017-05-11 17:24] VITALS: BP 125/58; PULSE 56; TEMP 97.3
[2017-05-11 17:33] LABS: Glucose,Whole Blood 106 mg/dL (75-99)
--- NOTE | 2017-05-11 18:45 | P.HPIM ---
History of Present Illness This is dictation on 05/11/2017. Admitted on 05/10/[address] Jarrett/Katheryn presley, and despite he told the nursing staff in the ER that his doctor is Dr. Tran, On the floor patient told his nurse again that his doctor is still Safi on the morning 05/11/2017 at nursing around, his nurse on the observation unit. Call the office and request that the patient to be accepted under the service due to mistake in the emergency room. This is a dictation of admission and discharge on the same day. Patient presented to the emergency room physician with the vague pain arising from the shoulder chest legs and arm with the underlying history of coronary artery disease atherosclerotic heart disease hypertension hyperlipidemia, as well as chronic lymphocytic leukemia. Patient his specialist, #1 Dr. Deleon mill platform supervisor #2 Dr. Fowler oncologist. seen by Dr. Hitchcock probably mill platform supervisor and he cleared him for discharge home today with the underlying normal EKGs normal troponin, and no typical chest pain. Past medical history he has history of chronic lymphocytic leukemia and he had history of cardiac vascularization on September 2015 and he had 2 stent.. He had history of 90% stenosis of the left circumflex coronary artery and 40% stenosis in mid right coronary artery and stenting of the proximal right coronary artery with drug eluting stent by Dr. Kaye in September of 11/29/2014. History of previous CA history of appendectomy and history of chronic lymphocytic leukemia under remission with the current treatment. Patient seen in the emergency room and admitted through the emergency room lost night under different physician. 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 Habits: Nonsmoker nondrinker Social history: has one son. Family history noncontributory. 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 Physical examination: HEENT: Head was normocephalic and atraumatic pupil is equal reactive conjunctiva was pink sclera was nonicteric extraocular muscle movement is intact oropharynx was normal no fascial and symmetric and uvula midline. Neck was supple no JVD no thyromegaly no lymphadenopathy trachea midline Chest was clear to auscultation and percussion no wheezes no rhonchi's Heart regular sinus rhythm no dysrhythmia and normal troponin and no acute EKG changes heart rate was 64 bpm on admission on May 10 Abdomen: Soft positive bowel sounds no organ enlargement no tenderness. Extremities: No pedal edema positive pulses. Neurologically: No lateralizing sign ambulatory with generalized weakness. Musculoskeletal: Generalized muscle ache with the recommendation of the stop of the Lipitor at this time until discussed with Dr. Watkins. The recommendation of Dr. Delcid with the possibility of side effect of the statin. Assessment: Umber 1 atypical chest pain #2 musculoskeletal aches and pain possible association with the statin Lipitor and that will be helped for now #3 normal troponin and normal EKG and no evidence of acute ischemic changes. # 4 diabetes mellitus type 2 controlled #5 chronic lymphocytic leukemia under care of oncology. Recommendation plan: #[address] Delcid discharge home today, we'll discharge the patient as he stable general condition. #2 hold the Lipitor/statin could be muscle weakness associated with myalgia from the statin. #3 off work until seen in the office on Sunday next week. #4 continue his current medication except Lipitor. This dictation for admission and discharged on the same day. Dictation by Dr. Marc Ryan FACP Past Medical History Past Medical History: Chest Pain / Angina, Diabetes Mellitus, GERD/Reflux, Hypertension, Myocardial Infarction ([place]), Prostate Disorder Additional Past Medical History / Comment(s): patient states "I have prostate problems" Last Myocardial Infarction Date:: 10/09/2015 History of Any Multi-Drug Resistant Organisms: None Reported Past Surgical History: Appendectomy, Heart Catheterization With Stent Additional Past Surgical History / Comment(s): heart cath with 2 stents to circ. Past Anesthesia/Blood Transfusion Reactions: No Reported Reaction Date of Last Stent Placement:: 10/09/15 Past Psychological History: No Psychological Hx Reported Smoking Status: Never smoker Past Alcohol Use History: None Reported Past Drug Use History: None Reported - Past Family History Father Family Medical History: Diabetes Mellitus Mother Family Medical History: Diabetes Mellitus Medications and Allergies Home Medications Medication Instructions Recorded Confirmed Type Nilotinib HCl [Tasigna] 300 mg PO BID 09/13/14 05/10/17 History Atorvastatin [Lipitor] 40 mg PO HS 01/05/17 05/10/17 History Tamsulosin HCl [Flomax] 0.4 mg PO DAILY 01/05/17 05/10/17 History metFORMIN HCL [Glucophage] 500 mg PO BID 01/05/17 05/10/17 History Aspirin EC [Ecotrin Low Dose] 81 mg PO DAILY 05/10/17 05/10/17 History Metoprolol Tartrate 25 mg PO BID 05/10/17 05/10/17 History Olopatadine HCl [Pataday] 1 drop BOTH EYES BID 05/10/17 05/10/17 History Allergies Allergy/AdvReac Type Severity Reaction Status Date / Time No Known Allergies Allergy Verified 05/10/17 17:26 Physical Exam Vitals: Vital Signs Temp Pulse Pulse Resp BP BP Pulse Ox 05/11/17 16:00 97.3 F L 56 L 16 125/58 98 05/11/17 12:00 97.7 F 61 16 99/46 99 05/11/17 09:11 95 05/11/17 07:49 97.6 F 50 L 16 132/61 98 05/11/17 04:00 54 L 16 05/11/17 03:24 98.1 F 69 16 123/57 98 05/11/17 00:00 56 L 16 05/10/17 23:46 97.7 F 56 L 16 116/48 100 05/10/17 23:15 54 L 16 05/10/17 21:13 97.7 F 52 L 16 139/61 100 05/10/17 20:59 97.5 F L 84 16 132/70 98 05/10/17 19:11 97.4 F L 53 L 20 120/59 100 Intake and Output 05/11/17 05/11/17 05/11/17 06:59 14:59 22:59 Intake Total 800 1055 Balance 800 1055 Intake: Intake, IV Titration 800 Amount Sodium Chloride 0.9% 1, 800 000 ml @ 100 mls/hr IV . Q10H [facility] Rx#:[id number] Oral 1055 Other: Voiding Method Toilet Toilet Toilet # Voids 2 Weight 50.802 kg Patient Weight 05/12/17 06:59 Weight 50.802 kg Results CBC & Chem 7: 05/11/17 05:28 05/11/17 05:28 Labs: Abnormal Lab Results - Last 24 Hours (Table) 05/10/17 05/10/17 05/11/17 Range/Units 17:50 21:16 05:28 Chloride 112 H (98-107) mmol/L Carbon Dioxide 19 L (22-30) mmol/L Creatinine 0.55 L (0.66-1.25) mg/dL Glucose 110 H (74-99) mg/dL POC Glucose (mg/dL) 148 H (75-99) mg/dL Hemoglobin A1c 7.4 H (4.2-6.1) % ALT 105 H (21-72) U/L Total Protein 6.2 L (6.3-8.2) g/dL 05/11/17 05/11/17 05/11/17 Range/Units 06:52 12:16 17:29 Chloride (98-107) mmol/L Carbon Dioxide (22-30) mmol/L Creatinine (0.66-1.25) mg/dL Glucose (74-99) mg/dL POC Glucose (mg/dL) 111 H 200 H 106 H (75-99) mg/dL Hemoglobin A1c (4.2-6.1) % ALT (21-72) U/L Total Protein (6.3-8.2) g/dL Thrombosis Risk Factor Assmnt - Choose All That Apply Each Factor Represents 1 point: Age 41-60 years Thrombosis Risk Factor Assessment Total Risk Factor Score: 1 Thrombosis Risk Factor Assessment Level: Low Risk
[2017-05-11] MEDS ORDERED: metFORMIN 500 MG TAB PO SCH (19:00)
[2017-05-11] MEDS ORDERED: METOPROLOL TARTRATE 25 MG TAB PO SCH (21:00)
[2017-05-12] MEDS ORDERED: ASPIRIN 81 MG CHEW PO SCH (09:00)
== END 2017-05-11 19:20 | disposition home or self-care (01) ==
LOC: EC 16:57 → 3OBS 20:42
PROVIDERS: ADMIT Internal Medicine; ATTEND Internal Medicine
DX: R07.89 Other chest pain (principal); M79.1 Myalgia; M54.2 Cervicalgia; I10 Essential (primary) hypertension; E78.5 Hyperlipidemia, unspecified; E87.6 Hypokalemia; I25.10 Atherosclerotic heart disease of native coronary artery without angina pectoris; I25.2 Old myocardial infarction; R52 Pain, unspecified; M79.606 Pain in leg, unspecified; M54.9 Dorsalgia, unspecified; E11.9 Type 2 diabetes mellitus without complications; C91.10 Chronic lymphocytic leukemia of B-cell type not having achieved remission; N42.9 Disorder of prostate, unspecified; Z95.5 Presence of coronary angioplasty implant and graft; Z79.899 Other long term (current) drug therapy; Z79.84 Long term (current) use of oral hypoglycemic drugs; Z79.82 Long term (current) use of aspirin
CPT/HCPCS: 99284; 36415; 94760; 93005; 85379; 80053 ×2; 83036; 82550 ×2; 82553 ×2; 83735; 84484 ×2; 85025 ×2; 85610; 85730; 71020; G0378 ×2

== ENCOUNTER → 2017-09-14 | Outpatient (CLI) | payer BC ==
[2017-09-14 08:47] LABS: ALT 51 U/L (21-72); AST 26 U/L (17-59); Alkaline Phosphatase 63 U/L (38-126); Anion Gap 9 mmol/L; Blood Urea Nitrogen 17 mg/dL (9-20); Calcium 9.5 mg/dL (8.4-10.2); Carbon Dioxide 24 mmol/L (22-30); Chloride 107 mmol/L (98-107); Cholesterol 192 mg/dL (<200); Glucose 128 mg/dL (74-99); HDL Cholesterol 59 mg/dL (40-60); Non-African American GFR(MDRD) >60 (>60 ml/min/1.73 sqM); Sodium 140 mmol/L (137-145); Total Bilirubin 1.2 mg/dL (0.2-1.3); Total Protein 7.5 g/dL (6.3-8.2)
== END | disposition home or self-care (01) ==
LOC: LABWHC1 07:52
PROVIDERS: ATTEND Internal Medicine Cardiovascular Disease
DX: E78.2 Mixed hyperlipidemia (principal)
CPT/HCPCS: 36415; 80053; 80061; 84450; 84460

== ENCOUNTER 2017-10-17 18:36 | Observation (INO) | payer BC, OTHER ==
[2017-10-17] MEDS ORDERED: ACETAMINOPHEN TAB 325 MG TAB PO STA (19:36)
--- NOTE | 2017-10-17 19:41 | ED ---
General Adult HPI - General Chief complaint: Chest Pain Stated complaint: Myalgias Time Seen by Provider: 10/17/17 19:31 Source: patient, family, RN notes reviewed Mode of arrival: ambulatory Limitations: no limitations - History of Present Illness Initial comments: Patient is a pleasant 51-year-old male presenting to the emergency Department with multiple complaints. Onset of symptoms was for this morning. Patient feels achy all over. Patient is been fatigued. Patient does admit to having some chest discomfort. Patient does feel somewhat short of breath. Patient is unclear whether or not he is having fevers. Patient has had some headaches. Patient denies rhinorrhea or sore throat to myself. No abdominal pain. - Related Data Home Medications Medication Instructions Recorded Confirmed Nilotinib HCl [Tasigna] 300 mg PO BID 09/13/14 10/17/17 Tamsulosin HCl [Flomax] 0.4 mg PO DAILY 01/05/17 10/17/17 metFORMIN HCL [Glucophage] 500 mg PO BID 01/05/17 10/17/17 Metoprolol Tartrate 25 mg PO BID 05/10/17 10/17/17 Olopatadine HCl [Pataday] 1 drop BOTH EYES BID 05/10/17 10/17/17 Calcium Carbonate/Vitamin D3 1 tab PO DAILY 10/17/17 10/17/17 [Calcium 500-Vit D3 200 Tablet] Diclofenac Sodium [Voltaren] 75 mg PO BID 10/17/17 10/17/17 Glimepiride [Amaryl] 1 mg PO DAILY 10/17/17 10/17/17 Methocarbamol [Robaxin-750] 750 mg PO DAILY 10/17/17 10/17/17 Ranitidine HCl 150 mg PO DAILY 10/17/17 10/17/17 Previous Rx's Medication Instructions Recorded Clopidogrel [Plavix] 75 mg PO DAILY #30 tab 10/12/15 Allergies Allergy/AdvReac Type Severity Reaction Status Date / Time No Known Allergies Allergy Verified 10/17/17 19:51 Review of Systems ROS Statement: Those systems with pertinent positive or pertinent negative responses have been documented in the HPI. ROS Other: All systems not noted in ROS Statement are negative. Constitutional: Reports: chills Eyes: Denies: eye pain ENT: Denies: ear pain Respiratory: Reports: dyspnea. Denies: cough Cardiovascular: Reports: chest pain Endocrine: Reports: fatigue Gastrointestinal: Denies: abdominal pain Genitourinary: Denies: dysuria Musculoskeletal: Denies: back pain Skin: Denies: rash Neurological: Denies: weakness Past Medical History Past Medical History: Chest Pain / Angina, Diabetes Mellitus, GERD/Reflux, Hypertension, Myocardial Infarction ([place]), Prostate Disorder Additional Past Medical History / Comment(s): patient states "I have prostate problems" Last Myocardial Infarction Date:: 10/09/2015 History of Any Multi-Drug Resistant Organisms: None Reported Past Surgical History: Appendectomy, Heart Catheterization With Stent Additional Past Surgical History / Comment(s): heart cath with 2 stents to circ. Past Anesthesia/Blood Transfusion Reactions: No Reported Reaction Date of Last Stent Placement:: 10/09/15 Past Psychological History: No Psychological Hx Reported Smoking Status: Never smoker Past Alcohol Use History: None Reported Past Drug Use History: None Reported - Past Family History Father Family Medical History: Diabetes Mellitus Mother Family Medical History: Diabetes Mellitus General Exam Limitations: no limitations General appearance: alert, in no apparent distress Head exam: Present: atraumatic Eye exam: Present: normal appearance, PERRL ENT exam: Present: normal oropharynx Neck exam: Present: normal inspection, full ROM. Absent: meningismus Respiratory exam: Present: normal lung sounds bilaterally Cardiovascular Exam: Present: regular rate, normal rhythm GI/Abdominal exam: Present: soft. Absent: tenderness Extremities exam: Present: normal inspection Neurological exam: Present: alert, CN II-XII intact. Absent: motor sensory deficit Psychiatric exam: Present: normal affect, normal mood Skin exam: Present: normal color Course Vital Signs 10/17/17 10/17/17 18:44 20:54 Temperature 97 F L Pulse Rate 76 52 L Respiratory 18 18 Rate Blood Pressure 153/70 129/70 O2 Sat by Pulse 99 98 Oximetry EKG Findings - EKG Comments: EKG Findings:: Normal sinus rhythm 63. OR 138. QRS 84. QT 390. QTC 399. Normal axis. Normal QRS. No acute ST change. Medical Decision Making - Medical Decision Making Patient reevaluated and still feels unchanged. Patient and family updated 2 results so far. Patient states he has seen doctors for headaches previously. Patient still complains of headache and computed tomography scan will be ordered as well as pain medication. Case was discussed with Dr. Tran who states he no longer sees this patient and he will need to go to city call. Case was also discussed with Dr. Menjivar, who will admit for hospital call. - Lab Data Result diagrams: 10/17/17 19:20 10/17/17 19:20 Lab Results 10/17/17 10/17/17 10/17/17 Range/Units 19:20 19:20 19:20 WBC 5.3 (3.8-10.6) k/uL RBC 4.91 (4.30-5.90) m/uL Hgb 15.0 (13.0-17.5) gm/dL Hct 44.7 (39.0-53.0) % MCV 91.2 (80.0-100.0) fL MCH 30.6 (25.0-35.0) pg MCHC 33.5 (31.0-37.0) g/dL RDW 13.2 (11.5-15.5) % Plt Count 160 (150-450) k/uL Neutrophils % 60 % Lymphocytes % 27 % Monocytes % 8 % Eosinophils % 1 % Basophils % 0 % Neutrophils # 3.2 (1.3-7.7) k/uL Lymphocytes # 1.4 (1.0-4.8) k/uL Monocytes # 0.4 (0-1.0) k/uL Eosinophils # 0.1 (0-0.7) k/uL Basophils # 0.0 (0-0.2) k/uL PT (9.0-12.0) sec INR (<1.2) APTT (22.0-30.0) sec D-Dimer (<0.60) mg/L FEU Sodium 137 (137-145) mmol/L Potassium 4.0 (3.5-5.1) mmol/L Chloride 105 (98-107) mmol/L Carbon Dioxide 20 L (22-30) mmol/L Anion Gap 12 mmol/L BUN 22 H (9-20) mg/dL Creatinine 0.92 (0.66-1.25) mg/dL Est GFR (MDRD) Af Amer >60 (>60 ml/min/1.73 sqM) Est GFR (MDRD) Non-Af >60 (>60 ml/min/1.73 sqM) Glucose 284 H (74-99) mg/dL Calcium 9.7 (8.4-10.2) mg/dL Total Bilirubin 1.4 H (0.2-1.3) mg/dL AST 33 (17-59) U/L ALT 53 (21-72) U/L Alkaline Phosphatase 55 (38-126) U/L Total Creatine Kinase 65 (55-170) U/L CK-MB (CK-2) 0.7 (0.0-2.4) ng/mL CK-MB (CK-2) Rel Index 1.1 Troponin I <0.012 (0.000-0.034) ng/mL NT-Pro-B Natriuret Pep pg/mL Total Protein 7.1 (6.3-8.2) g/dL Albumin 4.1 (3.5-5.0) g/dL Urine Color Urine Appearance (Clear) Urine pH (5.0-8.0) Ur Specific [place] (1.001-1.035) Urine Protein (Negative) Urine Glucose (UA) (Negative) Urine Ketones (Negative) Urine Blood (Negative) Urine Nitrite (Negative) Urine Bilirubin (Negative) Urine Urobilinogen (<2.0) mg/dL Ur Leukocyte Esterase (Negative) Influenza Type A RNA (Not Detectd) Influenza Type B (PCR) (Not Detectd) 10/17/17 10/17/17 10/17/17 Range/Units 19:20 19:20 19:43 WBC (3.8-10.6) k/uL RBC (4.30-5.90) m/uL Hgb (13.0-17.5) gm/dL Hct (39.0-53.0) % MCV (80.0-100.0) fL MCH (25.0-35.0) pg MCHC (31.0-37.0) g/dL RDW (11.5-15.5) % Plt Count (150-450) k/uL Neutrophils % % Lymphocytes % % Monocytes % % Eosinophils % % Basophils % % Neutrophils # (1.3-7.7) k/uL Lymphocytes # (1.0-4.8) k/uL Monocytes # (0-1.0) k/uL Eosinophils # (0-0.7) k/uL Basophils # (0-0.2) k/uL PT 10.3 (9.0-12.0) sec INR 1.1 (<1.2) APTT 23.9 (22.0-30.0) sec D-Dimer 0.18 (<0.60) mg/L FEU Sodium (137-145) mmol/L Potassium (3.5-5.1) mmol/L Chloride (98-107) mmol/L Carbon Dioxide (22-30) mmol/L Anion Gap mmol/L BUN (9-20) mg/dL Creatinine (0.66-1.25) mg/dL Est GFR (MDRD) Af Amer (>60 ml/min/1.73 sqM) Est GFR (MDRD) Non-Af (>60 ml/min/1.73 sqM) Glucose (74-99) mg/dL Calcium (8.4-10.2) mg/dL Total Bilirubin (0.2-1.3) mg/dL AST (17-59) U/L ALT (21-72) U/L Alkaline Phosphatase (38-126) U/L Total Creatine Kinase (55-170) U/L CK-MB (CK-2) (0.0-2.4) ng/mL CK-MB (CK-2) Rel Index Troponin I (0.000-0.034) ng/mL NT-Pro-B Natriuret Pep 39 pg/mL Total Protein (6.3-8.2) g/dL Albumin (3.5-5.0) g/dL Urine Color Urine Appearance (Clear) Urine pH (5.0-8.0) Ur Specific [place] (1.001-1.035) Urine Protein (Negative) Urine Glucose (UA) (Negative) Urine Ketones (Negative) Urine Blood (Negative) Urine Nitrite (Negative) Urine Bilirubin (Negative) Urine Urobilinogen (<2.0) mg/dL Ur Leukocyte Esterase (Negative) Influenza Type A RNA Not Detected (Not Detectd) Influenza Type B (PCR) Not Detected (Not Detectd) 10/17/17 Range/Units 20:00 WBC (3.8-10.6) k/uL RBC (4.30-5.90) m/uL Hgb (13.0-17.5) gm/dL Hct (39.0-53.0) % MCV (80.0-100.0) fL MCH (25.0-35.0) pg MCHC (31.0-37.0) g/dL RDW (11.5-15.5) % Plt Count (150-450) k/uL Neutrophils % % Lymphocytes % % Monocytes % % Eosinophils % % Basophils % % Neutrophils # (1.3-7.7) k/uL Lymphocytes # (1.0-4.8) k/uL Monocytes # (0-1.0) k/uL Eosinophils # (0-0.7) k/uL Basophils # (0-0.2) k/uL PT (9.0-12.0) sec INR (<1.2) APTT (22.0-30.0) sec D-Dimer (<0.60) mg/L FEU Sodium (137-145) mmol/L Potassium (3.5-5.1) mmol/L Chloride (98-107) mmol/L Carbon Dioxide (22-30) mmol/L Anion Gap mmol/L BUN (9-20) mg/dL Creatinine (0.66-1.25) mg/dL Est GFR (MDRD) Af Amer (>60 ml/min/1.73 sqM) Est GFR (MDRD) Non-Af (>60 ml/min/1.73 sqM) Glucose (74-99) mg/dL Calcium (8.4-10.2) mg/dL Total Bilirubin (0.2-1.3) mg/dL AST (17-59) U/L ALT (21-72) U/L Alkaline Phosphatase (38-126) U/L Total Creatine Kinase (55-170) U/L CK-MB (CK-2) (0.0-2.4) ng/mL CK-MB (CK-2) Rel Index Troponin I (0.000-0.034) ng/mL NT-Pro-B Natriuret Pep pg/mL Total Protein (6.3-8.2) g/dL Albumin (3.5-5.0) g/dL Urine Color Light Yellow Urine Appearance Clear (Clear) Urine pH 5.0 (5.0-8.0) Ur Specific [place] 1.012 (1.001-1.035) Urine Protein Negative (Negative) Urine Glucose (UA) 4+ H (Negative) Urine Ketones Negative (Negative) Urine Blood Negative (Negative) Urine Nitrite Negative (Negative) Urine Bilirubin Negative (Negative) Urine Urobilinogen <2.0 (<2.0) mg/dL Ur Leukocyte Esterase Negative (Negative) Influenza Type A RNA (Not Detectd) Influenza Type B (PCR) (Not Detectd) Disposition Clinical Impression: Chest pain Disposition: ADMITTED IP TO THIS HOSP Referrals: Vivian Hamlin MD [Primary Care Provider] - 1-2 days Decision Time: 21:27
[2017-10-17 19:51] LABS: Basophils % (A) 0 %; Eosinophils # (A) 0.1 k/uL (0-0.7); Eosinophils % (A) 1 %; HCT 44.7 % (39.0-53.0); Lymphocytes # (A) 1.4 k/uL (1.0-4.8); Lymphocytes % (A) 27 %; MCH 30.6 pg (25.0-35.0); MCHC 33.5 g/dL (31.0-37.0); MCV 91.2 fL (80.0-100.0); Mean Platelet Volume 8.6; Monocytes # (A) 0.4 k/uL (0-1.0); Monocytes % (A) 8 %; Neutrophils # (A) 3.2 k/uL (1.3-7.7); Neutrophils % (A) 60 %; Platelet Count 160 k/uL (150-450); RBC 4.91 m/uL (4.30-5.90); RDW 13.2 % (11.5-15.5); WBC 5.3 k/uL (3.8-10.6)
[2017-10-17 20:01] LABS: ALT 53 U/L (21-72); AST 33 U/L (17-59); Albumin 4.1 g/dL (3.5-5.0); Alkaline Phosphatase 55 U/L (38-126); Anion Gap 12 mmol/L; Blood Urea Nitrogen 22 mg/dL (9-20); Calcium 9.7 mg/dL (8.4-10.2); Carbon Dioxide 20 mmol/L (22-30); Chloride 105 mmol/L (98-107); Glucose 284 mg/dL (74-99); Sodium 137 mmol/L (137-145); Total Bilirubin 1.4 mg/dL (0.2-1.3); Total Protein 7.1 g/dL (6.3-8.2)
--- NOTE | 2017-10-17 20:06 | XR ---
EXAMINATION TYPE: XR chest 2V DATE OF EXAM: 10/17/2017 COMPARISON: 05/10/2017 HISTORY: Chest pain TECHNIQUE: Frontal and lateral views of the chest are obtained. FINDINGS: Heart and mediastinum are normal. Lungs are clear. Costophrenic angles are clear. There ar e small calcified granulomata in both lungs. There are chest leads. Bony thorax is intact. IMPRESSION: No active cardiopulmonary disease. No change.
[2017-10-17 20:14] LABS: Creatine Kinase 65 U/L (55-170)
[2017-10-17 20:21] LABS: D-Dimer 0.18 mg/L FEU (<0.60); INR 1.1 (<1.2); Partial Thromboplastin Time 23.9 sec (22.0-30.0); Prothrombin Time 10.3 sec (9.0-12.0)
[2017-10-17 20:26] LABS: Creatine Kinase MB 0.7 ng/mL (0.0-2.4); Troponin I <0.012 ng/mL (0.000-0.034)
[2017-10-17 20:27] LABS: Appearance,Urine Clear (Clear); Bilirubin,Urine Negative (Negative); Blood,Urine Negative (Negative); Color,Urine Light Yellow; Glucose,Urine (UA) 4+ (Negative); Ketones,Urine Negative (Negative); Leukocyte Esterase,Urine Negative (Negative); Nitrite,Urine Negative (Negative); Protein,Urine Negative (Negative); Specific Gravity,Urine 1.012 (1.001-1.035); Urobilinogen,Urine <2.0 mg/dL (<2.0)
[2017-10-17] MEDS ORDERED: MORPHINE SULFATE 5 MG/ML SYRINGE IVP STA (21:05)
[2017-10-17] MEDS ORDERED: NITROGLYCERIN SL TABS 0.4 MG TAB SUBLINGUAL PRN (21:27)
[2017-10-17] MEDS ORDERED: ASPIRIN 81 MG PO STA (21:27)
--- NOTE | 2017-10-17 21:33 | CT ---
EXAMINATION TYPE: CT brain wo con DATE OF EXAM: 10/17/2017 COMPARISON: 09/13/2014 HISTORY: headache CT DLP: 999.8 mGycm Automated exposure control for dose reduction was used. FINDINGS: Ventricles and sulci appear normal. There is no mass effect nor midline shift. There is no sign of in tracranial hemorrhage. The calvarium is intact. IMPRESSION: NEGATIVE CT SCAN OF THE BRAIN. NO CHANGE.
[2017-10-17] MEDS ORDERED: BISACODYL 5 MG TABLET.DR PO PRN (21:54)
[2017-10-17] MEDS ORDERED: ACETAMINOPHEN TAB 325 MG TAB PO PRN (21:54)
[2017-10-17] MEDS ORDERED: MORPHINE SULFATE 5 MG/ML SYRINGE IV PRN (21:54)
[2017-10-17] MEDS ORDERED: HYDROcodone/APAP 5-325MG 1 EACH TAB PO PRN (21:54)
[2017-10-17] MEDS ORDERED: NALOXONE 0.4 MG/ML 1 ML VIAL IV PRN (21:54)
[2017-10-17] MEDS ORDERED: MELATONIN 3 MG TABLET PO PRN (21:54)
[2017-10-17] MEDS ORDERED: methylPREDNISolone SOD SUCCI 125 MG/2 ML VIAL IV STA (21:59)
[2017-10-17] MEDS ORDERED: hydrALAZINE HCL 20 MG/ML 1 ML VIAL IVP PRN (22:20)
--- NOTE | 2017-10-17 22:20 | P.HPIM ---
History of Present Illness H&P Date: 10/17/17 Chief Complaint: back and chest pain Patient is a [id number] with a past medical history of diabetes mellitus type 2 on oral therapy, hypertension, coronary artery disease with prior stenting 2, CLL, GERD, and enlarged prostate who presented with complaints of chest pain, back pain, and headache. In the ER he underwent an extensive evaluation. CT of the brain was negative. Troponin was unremarkable and EKG showed no significant ST-T wave changes. Chest x-ray showed no acute process. Initial vital signs were normal. Laboratory analysis was essentially unremarkable other than a glucose of 284. He was given a dose of ASA and Tylenol. Arrangements were made for admission for further cardiac workup. Patient reports that his symptoms started this morning at 4 AM. He complains of headache and diffuse pain all over. He states that the pain started in his bacj and radiates up to his neck. He also complains of frontal headache. He states the pain is severe he feels short of breath. He states that he has chronic back pain which his made him stay off of work for the last 6 months. He reports that he sees a doctor and has multiple disc problems. He states that yesterday the pain in his back wrapped around to the front of his chest and was associated with shortness of breath. He is unable to tell me exactly where the pain was at or how long it lasted. He also reports some chills. He states he has prostate problems. He also reports chronic left leg weakness greater than right leg weakness. He states that at home he tried some Tylenol to help with his headache but when it did not relieve it he presented to the hospital. He had 2 stents placed he will use in September 2015. He follows with Dr. Deleon and was due to see him on November 01. He has not recently stopped or started any medications. He denies any fevers, cough, runny nose, stuffy nose, nausea, vomiting, diarrhea, constipation, and changes in urinary patterns. Review of Systems Pertinent positives and negatives as dictated in HPI, remainder of 12 point review of systems is negative Past Medical History Past Medical History: Chest Pain / Angina, Diabetes Mellitus, GERD/Reflux, Hypertension, Myocardial Infarction ([place]), Prostate Disorder Additional Past Medical History / Comment(s): enlarged prostate, chronic low back pain with degenerative disc disease, Chronic lymphocytic leukemia Last Myocardial Infarction Date:: 10/09/2015 History of Any Multi-Drug Resistant Organisms: None Reported Past Surgical History: Appendectomy, Heart Catheterization With Stent Additional Past Surgical History / Comment(s): heart cath with 2 stents to circ. Past Anesthesia/Blood Transfusion Reactions: No Reported Reaction Date of Last Stent Placement:: 10/09/15 Past Psychological History: No Psychological Hx Reported Smoking Status: Never smoker Past Alcohol Use History: None Reported Past Drug Use History: None Reported Additional History: Lives at home with , no longer working, no assistive devices. - Past Family History Father Family Medical History: Diabetes Mellitus Mother Family Medical History: Diabetes Mellitus Medications and Allergies Home Medications Medication Instructions Recorded Confirmed Type Nilotinib HCl [Tasigna] 300 mg PO BID 09/13/14 10/17/17 History Clopidogrel [Plavix] 75 mg PO DAILY #30 tab 10/12/15 10/17/17 Rx Tamsulosin HCl [Flomax] 0.4 mg PO DAILY 01/05/17 10/17/17 History metFORMIN HCL [Glucophage] 500 mg PO BID 01/05/17 10/17/17 History Metoprolol Tartrate 25 mg PO BID 05/10/17 10/17/17 History Olopatadine HCl [Pataday] 1 drop BOTH EYES BID 05/10/17 10/17/17 History Calcium Carbonate/Vitamin D3 1 tab PO DAILY 10/17/17 10/17/17 History [Calcium 500-Vit D3 200 Tablet] Diclofenac Sodium [Voltaren] 75 mg PO BID 10/17/17 10/17/17 History Glimepiride [Amaryl] 1 mg PO DAILY 10/17/17 10/17/17 History Methocarbamol [Robaxin-750] 750 mg PO DAILY 10/17/17 10/17/17 History Ranitidine HCl 150 mg PO DAILY 10/17/17 10/17/17 History Allergies Allergy/AdvReac Type Severity Reaction Status Date / Time No Known Allergies Allergy Verified 10/17/17 19:51 Physical Exam Osteopathic Statement: *. No significant issues noted on an osteopathic structural exam other than those noted in the History and Physical/Consult. Vitals: Vital Signs Temp Pulse Resp BP Pulse Ox 10/17/17 20:54 52 L 18 129/70 98 10/17/17 18:44 97 F L 76 18 153/70 99 Intake and Output 10/17/17 10/17/17 10/17/17 06:59 14:59 22:59 Other: Weight 54.431 kg Patient Weight 10/18/17 06:59 Weight 54.431 kg General: non toxic, no distress, appears at stated age, normal weight Derm: no unusual rashes/lesions no unusual ecchymoses, warm, dry Head: atraumatic, normocephalic, symmetric Eyes: EOMI, no lid lag, anicteric sclera, pupils equal round reactive to light ENT: Nose and ears atraumatic, no thrush, no pharyngeal erythema Neck: No thyromegaly, no cervical lymphadenopathy, trachea midline, supple Mouth: no lip lesion, mucus membranes moist Cardiovascular: S1S2 reg, no murmur, positive posterior tibial pulse bilateral, no edema, capillary refill less than 2 seconds Lungs: CTA bilateral, no rhonchi, no rales , no accessory muscle use Abdominal: soft, nontender to palpation, no guarding, no appreciable organomegaly, normal bowel sounds Ext: no gross muscle atrophy, muscle strength 5 out of 5 in bilateral upper extremities and right lower extremity, 4 out of 5 in left lower extremity, no contractures, Neuro: CN II-XI grossly intact, light touch intact all 4 extremities, finger to nose within normal limits, Psych: Alert, oriented, appropriate affect Skeletal: Cervical strain left neck with elevated rib #1 on left Results CBC & Chem 7: 10/17/17 19:20 10/17/17 19:20 Labs: Abnormal Lab Results - Last 24 Hours (Table) 10/17/17 10/17/17 Range/Units 19:20 20:00 Carbon Dioxide 20 L (22-30) mmol/L BUN 22 H (9-20) mg/dL Glucose 284 H (74-99) mg/dL Total Bilirubin 1.4 H (0.2-1.3) mg/dL Urine Glucose (UA) 4+ H (Negative) Comments: EKG is reviewed by myself reveals normal sinus rhythm without significant ST-T wave changes, normal axis, normal intervals Chest x-ray: report reviewed, image reviewed CT Scan - head: report reviewed Thrombosis Risk Factor Assmnt - DVT/VTE Prophylaxis DVT/VTE Prophylaxis: Low risk, early ambulation encouraged - Choose All That Apply Each Factor Represents 1 point: Age 41-60 years Thrombosis Risk Factor Assessment Total Risk Factor Score: 1 Thrombosis Risk Factor Assessment Level: Low Risk Assessment and Plan Assessment: Back pain with radiation to chest -Suspect this is likely secondary to acute arthritis flare -Start Solu-Medrol 125 mg IV push 1 and start Medrol Dosepak, Ultram and morphine for pain control, physical therapy evaluation - in light of his significant heart history and concern from the ER physician for possible coronary etiology continue with cardiology consultation, cycle troponins, and daily aspirin Diabetes mellitus type 2 with hyperglycemia -Stop metformin and amaryl -Sliding-scale insulin -Check hemoglobin A1c Hypertension, currently controlled -Continue metoprolol -Follow blood pressures -Hydralazine as needed CLL [facility] Surrogate decision-maker: Theo Shrestha CODE STATUS:full DVT prophylaxis: early ambulation Discussed with: patient, family, ED physicians Anticipated discharge: in AM Anticipated discharge place: home A total of 60 minutes was spent on the care of this patient more than 50% of the time was spent in counseling and care coordination.
[2017-10-17 23:35] VITALS: RESP 18
[2017-10-17 23:36] VITALS: BMI 20.4
[2017-10-18 02:42] LABS: Basophils % (A) 0 %; Eosinophils % (A) 0 %; HCT 44.9 % (39.0-53.0); HGB 14.5 gm/dL (13.0-17.5); Lymphocytes # (A) 0.6 k/uL (1.0-4.8); Lymphocytes % (A) 6 %; MCH 30.2 pg (25.0-35.0); MCHC 32.2 g/dL (31.0-37.0); MCV 93.9 fL (80.0-100.0); Monocytes # (A) 0.2 k/uL (0-1.0); Monocytes % (A) 2 %; Neutrophils % (A) 91 %; Platelet Count 176 k/uL (150-450); RBC 4.78 m/uL (4.30-5.90); RDW 15.1 % (11.5-15.5); WBC 9.9 k/uL (3.8-10.6)
[2017-10-18 03:00] LABS: ALT 62 U/L (21-72); AST 24 U/L (17-59); Albumin 4.1 g/dL (3.5-5.0); Alkaline Phosphatase 60 U/L (38-126); Anion Gap 14 mmol/L; Blood Urea Nitrogen 21 mg/dL (9-20); Calcium 9.7 mg/dL (8.4-10.2); Carbon Dioxide 22 mmol/L (22-30); Chloride 103 mmol/L (98-107); Cholesterol 198 mg/dL (<200); Glucose 269 mg/dL (74-99); HDL Cholesterol 51 mg/dL (40-60); LDL Cholesterol,Calculated 119 mg/dL (0-99); Potassium 4.4 mmol/L (3.5-5.1); Sodium 139 mmol/L (137-145); Total Bilirubin 0.9 mg/dL (0.2-1.3); Total Protein 6.9 g/dL (6.3-8.2); Triglycerides 139 mg/dL (<150)
[2017-10-18 03:04] LABS: Creatine Kinase 57 U/L (55-170)
[2017-10-18 03:17] LABS: Creatine Kinase MB 0.8 ng/mL (0.0-2.4); Troponin I <0.012 ng/mL (0.000-0.034)
[2017-10-18] MEDS: NITROGLYCERIN OINT 1 INCH/GM PACKET TOPICAL SCH ×2 (03:34→09:57)
[2017-10-18 07:06] LABS: Glucose,Whole Blood 211 mg/dL (75-99)
[2017-10-18 08:33] LABS: Creatine Kinase MB 0.7 ng/mL (0.0-2.4); Troponin I 0.021 ng/mL (0.000-0.034)
[2017-10-18] MEDS ORDERED: DOBUTamine DRIP for NUC MED 500 MG in DEXTROSE/WATER 1 250ML.BAG IV ONE (08:55)
--- NOTE | 2017-10-18 08:58 | P.CRDCN ---
History of Present Illness Consult reason: chest pain History of present illness: 51-year-old male patient presenting with chest discomfort and upper back discomfort Known coronary artery disease Status post stenting in the past Not taking statins LDL 119 mg/dL normal LFTs Suggest Start 20 mg by mouth daily of atorvastatin and follow liver functions in the future as an outpatient Dobutamine stress echo today to evaluate chest discomfort/shortness of breath in this patient with known underlying CAD Past Medical History Past Medical History: Chest Pain / Angina, Diabetes Mellitus, GERD/Reflux, Hypertension, Myocardial Infarction ([place]), Prostate Disorder Additional Past Medical History / Comment(s): enlarged prostate, chronic low back pain with degenerative disc disease, Chronic lymphocytic leukemia Last Myocardial Infarction Date:: 10/09/2015 History of Any Multi-Drug Resistant Organisms: None Reported Past Surgical History: Appendectomy, Heart Catheterization With Stent Additional Past Surgical History / Comment(s): heart cath with 2 stents to circ. Past Anesthesia/Blood Transfusion Reactions: No Reported Reaction Date of Last Stent Placement:: 10/09/15 Past Psychological History: No Psychological Hx Reported Smoking Status: Never smoker Past Alcohol Use History: None Reported Past Drug Use History: None Reported - Past Family History Father Family Medical History: Diabetes Mellitus Mother Family Medical History: Diabetes Mellitus Medications and Allergies Home Medications Medication Instructions Recorded Confirmed Type Nilotinib HCl [Tasigna] 300 mg PO BID 09/13/14 10/18/17 History Tamsulosin HCl [Flomax] 0.4 mg PO HS 01/05/17 10/18/17 History metFORMIN HCL [Glucophage] 500 mg PO BID 01/05/17 10/18/17 History Metoprolol Tartrate 25 mg PO BID 05/10/17 10/18/17 History Olopatadine HCl [Pataday] 1 drop BOTH EYES BID 05/10/17 10/18/17 History Diclofenac Sodium [Voltaren] 75 mg PO BID 10/17/17 10/18/17 History Glimepiride [Amaryl] 1 mg PO DAILY 10/17/17 10/18/17 History Methocarbamol [Robaxin-750] 750 mg PO DAILY 10/17/17 10/18/17 History Ranitidine HCl [Zantac] 150 mg PO HS 10/17/17 10/18/17 History Calcium Carb-Vit D 500Mg-200Un 1 tab PO DAILY 10/18/17 10/18/17 History [Oscal 500+D] Clopidogrel [Plavix] 75 mg PO DAILY 10/18/17 10/18/17 History Allergies Allergy/AdvReac Type Severity Reaction Status Date / Time No Known Allergies Allergy Verified 10/17/17 23:16 Physical Exam Vitals: Vital Signs Temp Pulse Pulse Resp BP BP Pulse Ox 10/18/17 04:00 98.4 F 90 16 107/59 96 10/18/17 00:00 18 10/17/17 23:11 97.5 F L 66 18 125/61 98 10/17/17 22:23 97 F L 62 18 139/67 98 10/17/17 20:54 52 L 18 129/70 98 10/17/17 18:44 97 F L 76 18 153/70 99 Intake and Output 10/17/17 10/18/17 10/18/17 22:59 06:59 14:59 Intake Total 150 Balance 150 Intake: Oral 150 Other: Voiding Method Toilet # Voids 2 Weight 47.5 kg Results 10/18/17 02:10 10/18/17 02:10 Cardiac Enzymes 10/17/17 10/17/17 10/18/17 Range/Units 19:20 19:20 02:10 AST 33 (17-59) U/L CK-MB (CK-2) 0.7 0.8 (0.0-2.4) ng/mL Troponin I <0.012 <0.012 (0.000-0.034) ng/mL 10/18/17 10/18/17 Range/Units 02:10 07:26 AST 24 (17-59) U/L CK-MB (CK-2) 0.7 (0.0-2.4) ng/mL Troponin I 0.021 (0.000-0.034) ng/mL Coagulation 10/17/17 Range/Units 19:20 PT 10.3 (9.0-12.0) sec APTT 23.9 (22.0-30.0) sec Lipids 10/18/17 Range/Units 02:10 Triglycerides 139 (<150) mg/dL Cholesterol 198 (<200) mg/dL HDL Cholesterol 51 (40-60) mg/dL CBC 10/17/17 10/18/17 Range/Units 19:20 02:10 WBC 5.3 9.9 (3.8-10.6) k/uL RBC 4.91 4.78 (4.30-5.90) m/uL Hgb 15.0 14.5 (13.0-17.5) gm/dL Hct 44.7 44.9 (39.0-53.0) % Plt Count 160 176 (150-450) k/uL Comprehensive Metabolic Panel 10/17/17 10/18/17 Range/Units 19:20 02:10 Sodium 137 139 (137-145) mmol/L Potassium 4.0 4.4 (3.5-5.1) mmol/L Chloride 105 103 (98-107) mmol/L Carbon Dioxide 20 L 22 (22-30) mmol/L BUN 22 H 21 H (9-20) mg/dL Creatinine 0.92 0.90 (0.66-1.25) mg/dL Glucose 284 H 269 H (74-99) mg/dL Calcium 9.7 9.7 (8.4-10.2) mg/dL AST 33 24 (17-59) U/L ALT 53 62 (21-72) U/L Alkaline Phosphatase 55 60 (38-126) U/L Total Protein 7.1 6.9 (6.3-8.2) g/dL Albumin 4.1 4.1 (3.5-5.0) g/dL Current Medications Generic Name Dose Route Start Last Admin Trade Name Freq PRN Reason Stop Dose Admin Acetaminophen 650 mg 10/17/17 21:54 Tylenol Tab PO Q6HR PRN Mild Pain or Fever > 100.5 Hydrocodone Bitart/Acetaminophen 1 each 10/17/17 21:54 [place] 5-325 PO Q4HR PRN Moderate Pain Aspirin 325 mg 10/18/17 09:00 Aspirin PO DAILY [facility] Bisacodyl 5 mg 10/17/17 21:54 Dulcolax PO DAILY PRN Constipation Calcium Carbonate 1 each 10/18/17 09:00 Oscal 500+D PO DAILY [facility] Etodolac 400 mg 10/18/17 09:00 Lodine PO BID [facility] Famotidine 20 mg 10/18/17 09:00 Pepcid PO BID [facility] Hydralazine HCl 10 mg 10/17/17 22:20 Apresoline IVP Q6HR PRN Blood Pressure - High Dobutamine HCl/Dextrose 500 mg 250 mls @ 14.25 mls/hr 10/18/17 08:55 / IV Solution IV 10/18/17 08:56 .[id number] ONE Protocol 10 MCG/KG/MIN Insulin Aspart 0 unit 10/18/17 07:30 Novolog SQ ACHS [facility] Protocol Melatonin 3 mg 10/17/17 21:54 Melatonin PO HS PRN Insomnia Methocarbamol 750 mg 10/18/17 09:00 Robaxin PO DAILY [facility] Methylprednisolone 24 mg 10/18/17 09:00 Medrol Dose Pack PO 10/24/17 08:59 DAILY [facility] Taper Metoprolol Tartrate 25 mg 10/18/17 09:00 Lopressor PO BID [facility] Morphine Sulfate 4 mg 10/17/17 21:54 Morphine Sulfate IV Q4HR PRN Severe Pain Naloxone HCl 0.2 mg 10/17/17 21:54 Narcan IV Q2M PRN Opioid Reversal Nitroglycerin 1 inch 10/18/17 00:00 10/18/17 03:34 Nitro-Bid Oint TOPICAL Not Given Q6HR [facility] Nitroglycerin 0.4 mg 10/17/17 21:27 Nitrostat SUBLINGUAL Q5M PRN Chest Pain Non-Formulary Medication 300 mg 10/18/17 09:00 Nilotinib Hcl [Tasigna] PO BID [facility] Non-Formulary Medication 1 drop 10/18/17 09:00 Olopatadine Hcl [Pataday] BOTH EYES BID [facility] Tamsulosin HCl 0.4 mg 10/18/17 09:00 Flomax PO DAILY [facility] Intake and Output 10/17/17 10/18/17 10/18/17 22:59 06:59 14:59 Intake Total 150 Balance 150 Intake: Oral 150 Other: Voiding Method Toilet # Voids 2 Weight 47.5 kg 10/18/17 02:10 10/18/17 02:10
[2017-10-18] MEDS ORDERED: METOPROLOL TARTRATE 25 MG TAB PO SCH (09:00)
[2017-10-18] MEDS ORDERED: CALCIUM CARB-VIT D 500MG-200UN 1 EACH TAB PO SCH (09:00)
[2017-10-18] MEDS ORDERED: methylPREDNISolone 4 MG TAB TAPER PO SCH (09:00)
[2017-10-18] MEDS ORDERED: TAMSULOSIN 0.4 MG CAP.ER.24H PO SCH (09:00)
[2017-10-18] MEDS ORDERED: ASPIRIN 325 MG TAB PO SCH (09:00)
[2017-10-18] MEDS ORDERED: CLOPIDOGREL 75 MG TAB PO SCH (09:00)
[2017-10-18] MEDS ORDERED: METHOCARBAMOL 750 MG TAB PO SCH (09:00)
[2017-10-18] MEDS ORDERED: FAMOTIDINE 20 MG TAB PO SCH (09:00)
[2017-10-18] MEDS ORDERED: NILOTINIB HCL 300 MG PO SCH (09:00)
[2017-10-18] MEDS ORDERED: ETODOLAC 400 MG TAB PO SCH (09:00)
[2017-10-18] MEDS ORDERED: OLOPATADINE HCL BOTH EYES SCH (09:00)
[2017-10-18] MEDS: INSULIN ASPART 100 UNIT/ML 1 ML 10 ML VIAL SQ SCH ×3 (11:19→18:08)
[2017-10-18] MEDS ORDERED: ATORVASTATIN 20 MG TAB PO SCH (11:45)
--- NOTE | 2017-10-18 12:01 | P.CRDCN ---
History of Present Illness Consult date: 10/18/17 History of present illness: Mr. Shrestha is a pleasant 51-year-old male with past medical history of CAD with 2 stents in the circumflex artery both distal and proximal in 2014, diabetes mellitus, hypertension, gastroesophageal reflux disease and dyslipidemia. He follows regularly with Dr. Deleon as an outpatient. We have been asked to see him in consultation for complaints of chest pain. He states starting approximately 2 days ago he started with pain in his lower back that radiated down his right leg and into his right upper back, neck and head. He also started to develop some discomfort in his chest with mild shortness of breath and dizziness. He denies palpitations, diaphoresis, nausea or vomiting. The pain is worse with movement and intermittent in nature. He can specify no alleviating factors but does feel better if he sits still. EKG reveals sinus mechanism with no acute ST or T-wave abnormalities with criteria for possible left atrial enlargement. Chest xray negative for an acute cardiopulmonary process. CT brain negative for acute process. Most recent echo performed preserved LV function with EF 60-65%, mild TR, mild- moderate MR and no pulmonary hypertension. Most recent Cardiolyte 02/2016 is negative for reversible cardiac ischemia. Laboratory data reviewed, hgb 14.5, plt 176, potassium 4.4, cardiac enzymes negative x2, AST 24, ALT 62, LDL 119. Current cardiac medications include metoprolol 25 mg twice a day, Plavix 75 mg daily. His last visit with Dr. Deleon his plavix was discontinued and he should also be on a low dose aspirin. Review of Systems At the time of my exam: CONSTITUTIONAL: Denies fever. Denies chills. EYES: Denies blurred vision. Denies vision changes. Denies eye pain. EARS, NOSE, MOUTH & THROAT: Denies headache. Denies sore throat. Denies ear pain. CARDIOVASCULAR: Denies chest pain. Denies shortness of breath. Denies orthopnea. Denies PND. Denies palpitations. RESPIRATORY: Denies cough. GASTROINTESTINAL: Denies abdominal pain. Denies diarrhea. Denies constipation. Denies nausea. Denies vomiting. MUSCULOSKELETAL: Complains of lower back, left leg, neck, chest and head achiness. INTEGUMENTARY: Denies pruitis. Denies rash. NEUROLOGIC: Denies numbness. Denies tingling. Denies weakness. PSYCHIATRIC: Denies anxiety. Denies depression. ENDOCRINE: Denies fatigue. Denies weight change. Denies polydipsia. Denies polyurina. GENITOURINARY: Denies burning, hematuria or urgency with micturation. HEMATOLOGIC: Denies history of anemia. Denies bleeding. Past Medical History Past Medical History: Chest Pain / Angina, Diabetes Mellitus, GERD/Reflux, Hypertension, Myocardial Infarction ([place]), Prostate Disorder Additional Past Medical History / Comment(s): enlarged prostate, chronic low back pain with degenerative disc disease, Chronic lymphocytic leukemia Last Myocardial Infarction Date:: 10/09/2015 History of Any Multi-Drug Resistant Organisms: None Reported Past Surgical History: Appendectomy, Heart Catheterization With Stent Additional Past Surgical History / Comment(s): heart cath with 2 stents to circ. Past Anesthesia/Blood Transfusion Reactions: No Reported Reaction Date of Last Stent Placement:: 10/09/15 Past Psychological History: No Psychological Hx Reported Smoking Status: Never smoker Past Alcohol Use History: None Reported Past Drug Use History: None Reported - Past Family History Father Family Medical History: Diabetes Mellitus Mother Family Medical History: Diabetes Mellitus Medications and Allergies Home Medications Medication Instructions Recorded Confirmed Type Nilotinib HCl [Tasigna] 300 mg PO BID 09/13/14 10/18/17 History Tamsulosin HCl [Flomax] 0.4 mg PO HS 01/05/17 10/18/17 History metFORMIN HCL [Glucophage] 500 mg PO BID 01/05/17 10/18/17 History Metoprolol Tartrate 25 mg PO BID 05/10/17 10/18/17 History Olopatadine HCl [Pataday] 1 drop BOTH EYES BID 05/10/17 10/18/17 History Diclofenac Sodium [Voltaren] 75 mg PO BID 10/17/17 10/18/17 History Glimepiride [Amaryl] 1 mg PO DAILY 10/17/17 10/18/17 History Methocarbamol [Robaxin-750] 750 mg PO DAILY 10/17/17 10/18/17 History Ranitidine HCl [Zantac] 150 mg PO HS 10/17/17 10/18/17 History Calcium Carb-Vit D 500Mg-200Un 1 tab PO DAILY 10/18/17 10/18/17 History [Oscal 500+D] Clopidogrel [Plavix] 75 mg PO DAILY 10/18/17 10/18/17 History Allergies Allergy/AdvReac Type Severity Reaction Status Date / Time No Known Allergies Allergy Verified 10/17/17 23:16 Physical Exam Vitals: Vital Signs Temp Pulse Pulse Pulse Resp BP BP 10/18/17 08:00 98.0 F 84 16 129/64 10/18/17 04:00 98.4 F 90 16 107/59 10/18/17 00:00 18 10/17/17 23:11 97.5 F L 66 18 125/61 10/17/17 22:23 97 F L 62 18 139/67 10/17/17 20:54 52 L 18 129/70 10/17/17 18:44 97 F L 76 18 153/70 Pulse Ox 10/18/17 08:00 96 10/18/17 04:00 96 10/18/17 00:00 10/17/17 23:11 98 10/17/17 22:23 98 10/17/17 20:54 98 10/17/17 18:44 99 Intake and Output 10/17/17 10/18/17 10/18/17 22:59 06:59 14:59 Intake Total 150 Balance 150 Intake: Oral 150 Other: Voiding Method Toilet # Voids 2 Weight 47.5 kg Blood pressure 129/64 with a heart rate of 84 afebrile GENERAL: This is a 51-year-old male in no apparent distress at the time of my examination. HEENT: Head is atraumatic, normocephalic. Pupils are equal, round. Sclerae anicteric. Conjunctivae are clear. Mucous membranes of the mouth are moist. Neck is supple. There is no jugular venous distention. No carotid bruit is heard. LUNGS: Clear to auscultation no wheezes, rales or rhonchi. No chest wall tenderness is noted on palpation or with deep breathing. HEART: Regular rate and rhythm without murmurs, rubs or gallops. S1 and S2 heard. ABDOMEN: Soft, nontender. Bowel sounds are heard. No organomegaly noted. EXTREMITIES: 2+ peripheral pulses with no evidence of peripheral edema and no calf tenderness noted. NEUROLOGIC: Patient is awake, alert and oriented x3. Results 10/18/17 02:10 10/18/17 02:10 Cardiac Enzymes 10/17/17 10/17/17 10/18/17 Range/Units 19:20 19:20 02:10 AST 33 (17-59) U/L CK-MB (CK-2) 0.7 0.8 (0.0-2.4) ng/mL Troponin I <0.012 <0.012 (0.000-0.034) ng/mL 10/18/17 10/18/17 Range/Units 02:10 07:26 AST 24 (17-59) U/L CK-MB (CK-2) 0.7 (0.0-2.4) ng/mL Troponin I 0.021 (0.000-0.034) ng/mL Coagulation 10/17/17 Range/Units 19:20 PT 10.3 (9.0-12.0) sec APTT 23.9 (22.0-30.0) sec Lipids 10/18/17 Range/Units 02:10 Triglycerides 139 (<150) mg/dL Cholesterol 198 (<200) mg/dL HDL Cholesterol 51 (40-60) mg/dL CBC 10/17/17 10/18/17 Range/Units 19:20 02:10 WBC 5.3 9.9 (3.8-10.6) k/uL RBC 4.91 4.78 (4.30-5.90) m/uL Hgb 15.0 14.5 (13.0-17.5) gm/dL Hct 44.7 44.9 (39.0-53.0) % Plt Count 160 176 (150-450) k/uL Comprehensive Metabolic Panel 10/17/17 10/18/17 Range/Units 19:20 02:10 Sodium 137 139 (137-145) mmol/L Potassium 4.0 4.4 (3.5-5.1) mmol/L Chloride 105 103 (98-107) mmol/L Carbon Dioxide 20 L 22 (22-30) mmol/L BUN 22 H 21 H (9-20) mg/dL Creatinine 0.92 0.90 (0.66-1.25) mg/dL Glucose 284 H 269 H (74-99) mg/dL Calcium 9.7 9.7 (8.4-10.2) mg/dL AST 33 24 (17-59) U/L ALT 53 62 (21-72) U/L Alkaline Phosphatase 55 60 (38-126) U/L Total Protein 7.1 6.9 (6.3-8.2) g/dL Albumin 4.1 4.1 (3.5-5.0) g/dL Current Medications Generic Name Dose Route Start Last Admin Trade Name Freq PRN Reason Stop Dose Admin Acetaminophen 650 mg 10/17/17 21:54 Tylenol Tab PO Q6HR PRN Mild Pain or Fever > 100.5 Hydrocodone Bitart/Acetaminophen 1 each 10/17/17 21:54 [place] 5-325 PO Q4HR PRN Moderate Pain Aspirin 325 mg 10/18/17 09:00 Aspirin PO DAILY [facility] Bisacodyl 5 mg 10/17/17 21:54 Dulcolax PO DAILY PRN Constipation Calcium Carbonate 1 each 10/18/17 09:00 Oscal 500+D PO DAILY [facility] Etodolac 400 mg 10/18/17 09:00 Lodine PO BID [facility] Famotidine 20 mg 10/18/17 09:00 Pepcid PO BID [facility] Hydralazine HCl 10 mg 10/17/17 22:20 Apresoline IVP Q6HR PRN Blood Pressure - High Insulin Aspart 0 unit 10/18/17 07:30 Novolog SQ ACHS [facility] Protocol Melatonin 3 mg 10/17/17 21:54 Melatonin PO HS PRN Insomnia Methocarbamol 750 mg 10/18/17 09:00 Robaxin PO DAILY [facility] Methylprednisolone 24 mg 10/18/17 09:00 Medrol Dose Pack PO 10/24/17 08:59 DAILY [facility] Taper Metoprolol Tartrate 25 mg 10/18/17 09:00 Lopressor PO BID [facility] Morphine Sulfate 4 mg 10/17/17 21:54 Morphine Sulfate IV Q4HR PRN Severe Pain Naloxone HCl 0.2 mg 10/17/17 21:54 Narcan IV Q2M PRN Opioid Reversal Nitroglycerin 1 inch 10/18/17 00:00 10/18/17 09:57 Nitro-Bid Oint TOPICAL Not Given Q6HR [facility] Nitroglycerin 0.4 mg 10/17/17 21:27 Nitrostat SUBLINGUAL Q5M PRN Chest Pain Non-Formulary Medication 300 mg 10/18/17 09:00 Nilotinib Hcl [Tasigna] PO BID [facility] Non-Formulary Medication 1 drop 01/04/18 09:00 Olopatadine Hcl [Pataday] BOTH EYES BID [facility] Tamsulosin HCl 0.4 mg 10/18/17 09:00 Flomax PO DAILY [facility] Intake and Output 10/17/17 10/18/17 10/18/17 22:59 06:59 14:59 Intake Total 150 Balance 150 Intake: Oral 150 Other: Voiding Method Toilet # Voids 2 Weight 47.5 kg 10/18/17 02:10 10/18/17 02:10 Assessment and Plan Assessment: ASSESSMENT 1. Chest pain, atypical. Most likely musculoskeletal. Although he has associated symptoms and history of 55% RCA lesion. 2. Dyslipidemia 3. CAD with 2 stents in circumflex 2015. 4. Hypertension PLAN Obtain 2D echocardiogram and doppler study to assess cardiac structure and function. Perform dobutamine stress echo to assess for stress induced ischemia. Plavix can be discontinued as his stents were 2 years ago. Start atorvastatin 20 mg daily and aspirin 81 mg daily. Follow liver enzymes as an outpatient. Follow-up with Dr. Deleon in 2-3 weeks. Nurse Practitioner note has been reviewed, I agree with a documented findings and plan of care. Patient was seen and examined.
[2017-10-18 12:05] LABS: Glucose,Whole Blood 241 mg/dL (75-99)
[2017-10-18 14:36] LABS: Hemoglobin A1C 6.4 % (4.0-6.0)
[2017-10-18 16:26] VITALS: BP 136/62; PULSE 83; TEMP 97.3
[2017-10-18 17:12] LABS: Glucose,Whole Blood 129 mg/dL (75-99)
--- NOTE | 2017-10-18 18:54 | ECHOS ---
STRESS ECHOCARDIOGRAM DOBUTAMINE STRESS ECHO: INDICATIONS: History of chest discomfort. MEDICATIONS: None. BASELINE HEART RATE: 86 BASELINE BLOOD PRESSURE: 134/55 MAXIMUM HEART RATE: 144 MAXIMUM BLOOD PRESSURE: 153/62 85% MPHR: 144 100% MPHR: 169 METS: MAXIMUM STAGE REACHED: 2 mcg/kg per minute. TOTAL EXERCISE TIME: 4:30 CLINICAL INFORMATION: Baseline heart rate is 86 beats per minute, baseline blood pressure 134/55 mmHg. Baseline 12-lead ECG showed normal sinus rhythm and normal cardiac intervals. The baseline 2D echo images showed normal LV size and systolic function with no segmental wall motion abnormalities. The patient received dobutamine infusion per protocol. Peak heart rate achieved 144 beats per minute. There was augmentation of overall contractility without development of any wall motion abnormalities. At recovery, regional global LV systolic function remained normal. There was no ECG evidence for ischemia. No arrhythmias were noted. IMPRESSION: No ECG evidence for ischemia or arrhythmia during dobutamine infusion. MMODL / IJN: [id number] /
[2017-10-19] MEDS ORDERED: ASPIRIN 81 MG PO SCH (09:00)
--- NOTE | 2017-10-20 11:56 | P.DS ---
Providers Date of admission: 10/17/17 21:27 Expected date of discharge: 10/18/17 Attending physician: Rachel Monroe DO Consults: 10/17/17 21:27 Consult Physician Urgent Consulting Provider: Malcolm Garcia Consult Reason/Comments: cp Do you want consulting provider notified?: Yes Primary care physician: Vivian Hamlin - Discharge Diagnosis(es) (1) Atypical chest pain Status: Acute (2) Coronary artery disease Status: Acute (3) Dyslipidemia Status: Acute (4) HTN (hypertension) Status: Acute Hospital Course: the patient is a 51-year-old male that presented with atypical chest pain and was placed in observation to rule out ACS given his history of coronary disease with stenting. His initial EKG and cardiac enzymes are negative for any suggestion of ischemia. he was started on chest pain protocol and given aspirin nitrates morphine, cardiology was consulted and the patient was seen by Dr. Shannon who recommended a dobutamine stress test, this was performed and there was no evidence of reversible ischemia and the patient was subsequently discharged home with pain medication for his back a new prescriptions for aspirin and atorvastatin as patient was noted to have dyslipidemia with a LDL level of 119. This discharge process took approximately 30 minutes Patient Condition at Discharge: Good Plan - Discharge Summary Discharge Rx Participant: No New Discharge Prescriptions: New Atorvastatin [Lipitor] 20 mg PO DAILY #30 tab Aspirin [Adult Low Dose Aspirin EC] 81 mg PO DAILY #30 tablet. Acetaminophen Tab [Tylenol] 650 mg PO Q6HR PRN tab PRN Reason: Mild Pain Or Fever > 100.5 Aspirin [Adult Low Dose Aspirin EC] 81 mg PO DAILY 90 Days #90 tablet. Continue Nilotinib HCl [Tasigna] 300 mg PO BID metFORMIN HCL [Glucophage] 500 mg PO BID Tamsulosin HCl [Flomax] 0.4 mg PO HS Olopatadine HCl [Pataday] 1 drop BOTH EYES BID Metoprolol Tartrate 25 mg PO BID Methocarbamol [Robaxin-750] 750 mg PO DAILY Glimepiride [Amaryl] 1 mg PO DAILY Diclofenac Sodium [Voltaren] 75 mg PO BID Ranitidine HCl [Zantac] 150 mg PO HS Calcium Carb-Vit D 500Mg-200Un [Oscal 500+D] 1 tab PO DAILY Discontinued Clopidogrel [Plavix] 75 mg PO DAILY Discharge Medication List Nilotinib HCl [Tasigna] 300 mg PO BID 09/13/14 [History] Tamsulosin HCl [Flomax] 0.4 mg PO HS 01/05/17 [History] metFORMIN HCL [Glucophage] 500 mg PO BID 01/05/17 [History] Metoprolol Tartrate 25 mg PO BID 05/10/17 [History] Olopatadine HCl [Pataday] 1 drop BOTH EYES BID 05/10/17 [History] Diclofenac Sodium [Voltaren] 75 mg PO BID 10/17/17 [History] Glimepiride [Amaryl] 1 mg PO DAILY 10/17/17 [History] Methocarbamol [Robaxin-750] 750 mg PO DAILY 10/17/17 [History] Ranitidine HCl [Zantac] 150 mg PO HS 10/17/17 [History] Acetaminophen Tab [Tylenol] 650 mg PO Q6HR PRN tab 10/18/17 [Rx] Aspirin [Adult Low Dose Aspirin EC] 81 mg PO DAILY #30 tablet. 10/18/17 [Rx] Aspirin [Adult Low Dose Aspirin EC] 81 mg PO DAILY 90 Days #90 tablet. [Rx] Atorvastatin [Lipitor] 20 mg PO DAILY #30 tab 10/18/17 [Rx] Calcium Carb-Vit D 500Mg-200Un [Oscal 500+D] 1 tab PO DAILY 10/18/17 [History] Follow up Appointment(s)/Referral(s): Vivian Hamlin MD [Primary Care Provider] - 1-2 days Aj Deleon MD [STAFF PHYSICIAN] - 3 Weeks Patient Instructions/Handouts: Chest Pain (GEN) Discharge Disposition: HOME SELF-CARE
== END 2017-10-18 19:10 | disposition home or self-care (01) ==
LOC: EC 18:36 → 3OBS 21:27
PROVIDERS: ADMIT Internal Medicine; ATTEND Internal Medicine
DX: R07.89 Other chest pain (principal); R51 Headache; R53.83 Other fatigue; R06.02 Shortness of breath; G89.29 Other chronic pain; M54.5 Low back pain; R42 Dizziness and giddiness; R68.83 Chills (without fever); R53.1 Weakness; I25.10 Atherosclerotic heart disease of native coronary artery without angina pectoris; E11.65 Type 2 diabetes mellitus with hyperglycemia; E78.5 Hyperlipidemia, unspecified; I10 Essential (primary) hypertension; C91.10 Chronic lymphocytic leukemia of B-cell type not having achieved remission; I25.2 Old myocardial infarction; K21.9 Gastro-esophageal reflux disease without esophagitis; N40.0 Benign prostatic hyperplasia without lower urinary tract symptoms; Z95.5 Presence of coronary angioplasty implant and graft; Z79.02 Long term (current) use of antithrombotics/antiplatelets; Z79.84 Long term (current) use of oral hypoglycemic drugs; Z79.899 Other long term (current) drug therapy; Z92.21 Personal history of antineoplastic chemotherapy
CPT/HCPCS: 99285; 96374 ×2; 96375 ×2; 36415; 93005; 93017; 93350; 97161; 85379; 83880; 80061; 80053 ×2; 82550 ×2; 82553 ×2; 84484 ×2; 85025 ×2; 85610; 85730; 81003; 87040; 87086; 87502; 83036; 71046; 70450; G0378 ×2; J1250; J2930; J7509; J2274

== ENCOUNTER 2017-11-23 14:31 | Emergency (ER) | payer BC, OTHER ==
--- NOTE | 2017-11-23 15:20 | ED ---
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 Patient states that he has been experiencing this pain for the past one month. He denies any specific injuries, trauma or falls. Patient states that the joint of his right thumb has a click when he moves it. He states that the pain is intermittent and sometimes it is sore. Other times there is a sharp pain that radiates to the base of the thumb. Patient states pain is made worse by moving the thumb and when he hits it on something. He states he has not been taking any medications for it. Denies fever, chills, nausea or vomiting, constipation or diarrhea, numbness or tingling, headache or vision changes. - Related Data Home Medications Medication Instructions Recorded Confirmed Nilotinib HCl [Tasigna] 300 mg PO BID 09/13/14 10/18/17 Tamsulosin HCl [Flomax] 0.4 mg PO HS 01/05/17 10/18/17 metFORMIN HCL [Glucophage] 500 mg PO BID 01/05/17 10/18/17 Metoprolol Tartrate 25 mg PO BID 05/10/17 10/18/17 Olopatadine HCl [Pataday] 1 drop BOTH EYES BID 05/10/17 10/18/17 Diclofenac Sodium [Voltaren] 75 mg PO BID 10/17/17 10/18/17 Glimepiride [Amaryl] 1 mg PO DAILY 10/17/17 10/18/17 Methocarbamol [Robaxin-750] 750 mg PO DAILY 10/17/17 10/18/17 Ranitidine HCl [Zantac] 150 mg PO HS 10/17/17 10/18/17 Calcium Carb-Vit D 500Mg-200Un 1 tab PO DAILY 10/18/17 10/18/17 [Oscal 500+D] Previous Rx's Medication Instructions Recorded Acetaminophen Tab [Tylenol] 650 mg PO Q6HR PRN tab 10/18/17 Aspirin [Adult Low Dose Aspirin EC] 81 mg PO DAILY #30 tablet. 10/18/17 Aspirin [Adult Low Dose Aspirin EC] 81 mg PO DAILY 90 Days #90 10/18/17 tablet. Atorvastatin [Lipitor] 20 mg PO DAILY #30 tab 10/18/17 Allergies Allergy/AdvReac Type Severity Reaction Status Date / Time No Known Allergies Allergy Verified 11/23/17 15:25 Review of Systems ROS Statement: Those systems with pertinent positive or pertinent negative responses have been documented in the HPI. ROS Other: All systems not noted in ROS Statement are negative. Past Medical History Past Medical History: Chest Pain / Angina, Diabetes Mellitus, GERD/Reflux, Hypertension, Myocardial Infarction ([place]), Prostate Disorder Additional Past Medical History / Comment(s): enlarged prostate, chronic low back pain with degenerative disc disease, Chronic lymphocytic leukemia Last Myocardial Infarction Date:: 10/09/2015 History of Any Multi-Drug Resistant Organisms: None Reported Past Surgical History: Appendectomy, Heart Catheterization With Stent Additional Past Surgical History / Comment(s): heart cath with 2 stents to circ. Past Anesthesia/Blood Transfusion Reactions: No Reported Reaction Date of Last Stent Placement:: 10/09/15 Past Psychological History: No Psychological Hx Reported Smoking Status: Never smoker Past Alcohol Use History: None Reported Past Drug Use History: None Reported - Past Family History Father Family Medical History: Diabetes Mellitus Mother Family Medical History: Diabetes Mellitus General Exam - General Exam Comments Initial Comments: General: Awake and alert, well-developed; in no apparent distress. HEENT: Head atraumatic, normocephalic. Pupils are equal, round and reactive to light. Extraocular movements intact. Neck: Supple. Normal ROM. Cardiovascular: Regular rate and rhythm. No murmurs, rubs or gallops. Chest symmetrical. Respiratory: Lungs clear to auscultation bilaterally. No wheezes, rales or rhonchi. Normal respiratory effort with no use of accessory muscles. Musculoskeletal: Normal active and passive range of motion of the right thumb. There is no swelling, ecchymosis or erythema. There is a click felt with flexion of the interphalangeal joint of the right thumb. This elicits pain. No tenderness on palpation. Sensation is intact. Radial pulses are 2+ equal and palpable bilaterally. Skin: [place], warm and dry without rashes or lesions. Course Vital Signs 02/09/18 15:21 Temperature 97 F L Pulse Rate 61 Respiratory 18 Rate Blood Pressure 153/70 O2 Sat by Pulse 98 Oximetry Procedures - Orthopedic Splinting/Casting Injury #1 Side: right Upper Extremity Injury Location: finger (thumb ) Upper Extremity Immobilizer: finger (other) Additional Comments: tolerated well. neurovascularly intact. Medical Decision Making - Medical Decision Making This is a 52-year-old male who presents to the emergency department with chief complaint of right thumb pain. This has been ongoing for the past month. Patient experiences a click with flexion of the thumb. X-ray revealed no acute abnormalities. There is a sesamoid bone located at the IP joint of the right thumb. This is most likely contributing to the pain and clicking sensation patient is experiencing. A finger splint was placed and patient tolerated well without complication. He is neurovascularly intact and in no acute distress. He will be discharged home with recommendation to follow-up with orthopedics. Patient is in agreement with plan and voices understanding. All questions were answered. - Radiology Data Radiology results: report reviewed Interpreted by me: There is a sesamoid bone located at the IP joint of the right thumb. X-ray right thumb findings: No radiopaque foreign bodies are evident. Soft tissues are normal. Joint spaces are preserved. No acute fractures or dislocations are evident. Impression: Unremarkable right thumb. As read by Dr. Tejada Disposition Clinical Impression: Pain in thumb joint with movement Disposition: HOME SELF-CARE Condition: Good Instructions: Musculoskeletal Pain (ED), Arthralgia (ED) Additional Instructions: Please follow-up with Dr. Parekh, orthopedics within 1-2 days. May remove splint while showering. Please follow up with primary care provider within 1-2 days. Return to emergency department if symptoms should worsen or any concerns arise. Referrals: Vivian Hamlin MD [Primary Care Provider] - 1-2 days Liborio Parekh MD [STAFF PHYSICIAN] - 1-2 days Time of Disposition: 15:46
[2017-11-23 15:25] VITALS: BP 153/70; PULSE 61; RESP 18; TEMP 97
--- NOTE | 2017-11-23 15:36 | XR ---
EXAMINATION TYPE: XR finger RT DATE OF EXAM: 11/23/2017 COMPARISON: NONE HISTORY: Right thumb pain TECHNIQUE: 3 views right thumb FINDINGS: No radiopaque foreign bodies are evident. The soft tissues are normal. Joint spaces are pre served. No acute fractures or dislocations are evident. IMPRESSION: 1. Unremarkable right thumb
== END 2017-11-23 15:53 | disposition home or self-care (01) ==
LOC: EC 14:31
DX: M79.644 Pain in right finger(s) (principal); E11.9 Type 2 diabetes mellitus without complications; K21.9 Gastro-esophageal reflux disease without esophagitis; I25.2 Old myocardial infarction; I10 Essential (primary) hypertension; N42.9 Disorder of prostate, unspecified; Z85.6 Personal history of leukemia; Z79.84 Long term (current) use of oral hypoglycemic drugs; Z79.899 Other long term (current) drug therapy
CPT/HCPCS: 99283

== ENCOUNTER 2018-02-17 15:46 | Emergency (ER) | payer BC, OTHER ==
[2018-02-17] MEDS ORDERED: ACETAMINOPHEN TAB 500 MG TAB PO STA (16:13)
--- NOTE | 2018-02-17 16:20 | ED ---
General Adult HPI - General Chief complaint: Headache Stated complaint: headache, pain in back, dizziness Time Seen by Provider: 02/17/18 16:01 Source: patient Mode of arrival: ambulatory Limitations: no limitations - History of Present Illness Initial comments: Patient is a 52-year-old male with a history of [place], hypertension, diabetes who presents with a chief complaint of a headache. The patient states that he has been having intermittent headaches for about a month. He states he took his primary care doctor does not have an answer as to why he is having headaches. Today the patient states that his headache started about 2 hours ago. He states it was a sudden onset. He describes pain from his neck to his forehead. He states that this is the worst headache he's had. Patient currently on Plavix, no other blood thinners. - Related Data Home Medications Medication Instructions Recorded Confirmed Nilotinib HCl [Tasigna] 300 mg PO BID 09/13/14 02/17/18 Tamsulosin HCl [Flomax] 0.4 mg PO HS 01/05/17 02/17/18 metFORMIN HCL [Glucophage] 500 mg PO BID 01/05/17 02/17/18 Metoprolol Tartrate 25 mg PO BID 05/10/17 02/17/18 Olopatadine HCl [Pataday] 1 drop BOTH EYES BID 05/10/17 02/17/18 Diclofenac Sodium [Voltaren] 75 mg PO BID 10/17/17 02/17/18 Glimepiride [Amaryl] 1 mg PO DAILY 10/17/17 02/17/18 Methocarbamol [Robaxin-750] 750 mg PO DAILY 10/17/17 02/17/18 Ranitidine HCl [Zantac] 150 mg PO HS 10/17/17 02/17/18 Calcium Carb-Vit D 500Mg-200Un 1 tab PO DAILY 10/18/17 02/17/18 [Oscal 500+D] Previous Rx's Medication Instructions Recorded Acetaminophen Tab [Tylenol] 650 mg PO Q6HR PRN tab 10/18/17 Aspirin [Adult Low Dose Aspirin EC] 81 mg PO DAILY #30 tablet. 10/18/17 Aspirin [Adult Low Dose Aspirin EC] 81 mg PO DAILY 90 Days #90 10/18/17 tablet. Atorvastatin [Lipitor] 20 mg PO DAILY #30 tab 10/18/17 Allergies Allergy/AdvReac Type Severity Reaction Status Date / Time No Known Allergies Allergy Verified 02/17/18 18:28 Review of Systems ROS Statement: Those systems with pertinent positive or pertinent negative responses have been documented in the HPI. ROS Other: All systems not noted in ROS Statement are negative. Neurological: Reports: headache Past Medical History Past Medical History: Chest Pain / Angina, Diabetes Mellitus, GERD/Reflux, Hypertension, Myocardial Infarction ([place]), Prostate Disorder Additional Past Medical History / Comment(s): enlarged prostate, chronic low back pain with degenerative disc disease, Chronic lymphocytic leukemia Last Myocardial Infarction Date:: 10/09/2015 History of Any Multi-Drug Resistant Organisms: None Reported Past Surgical History: Appendectomy, Heart Catheterization With Stent Additional Past Surgical History / Comment(s): heart cath with 2 stents to circ. Past Anesthesia/Blood Transfusion Reactions: No Reported Reaction Date of Last Stent Placement:: 10/09/15 Past Psychological History: No Psychological Hx Reported Smoking Status: Never smoker Past Alcohol Use History: None Reported Past Drug Use History: None Reported - Past Family History Father Family Medical History: Diabetes Mellitus Mother Family Medical History: Diabetes Mellitus General Exam Limitations: no limitations General appearance: alert, in no apparent distress Head exam: Present: atraumatic, normocephalic Eye exam: Present: normal appearance, PERRL, EOMI. Absent: scleral icterus, nystagmus Pupils: Present: normal accommodation. Absent: unequal ENT exam: Present: mucous membranes moist Neck exam: Present: normal inspection, tenderness. Absent: meningismus Respiratory exam: Present: normal lung sounds bilaterally. Absent: respiratory distress Cardiovascular Exam: Present: regular rate, normal rhythm GI/Abdominal exam: Present: soft. Absent: distended, tenderness Rectal exam: Present: deferred Extremities exam: Present: normal inspection Back exam: Present: tenderness (chronic per the patient ) Neurological exam: Present: alert, oriented X3, normal gait Psychiatric exam: Present: normal affect, normal mood Skin exam: Present: warm, dry, intact Course Vital Signs 02/17/18 02/17/18 02/17/18 15:50 18:44 21:01 Temperature 97.2 F L 97.1 F L Pulse Rate 60 64 59 L Respiratory 20 18 18 Rate Blood Pressure 130/64 123/58 129/59 O2 Sat by Pulse 99 99 98 Oximetry Procedures - Lumbar Puncture Consent Obtained: verbal consent, written consent Time Out Performed: Yes Indication for Procedure: headache, R/o SA bleed Patient Position: sitting upright/leaning forward Skin Prep: Povidone-Iodine 1% Local Anesthetic Used: Lidocaine 1% Spinal Needle Gauge: 22G Spinal Needle Length: 2in Interspace Used: L4-L5 Fluid Initially Obtained: bloody Complications: none, traumatic tap Patient Tolerated Procedure: well, no complications Additional Comments: initially had return of bloody fluid. CSF clear by tube 2, no xanthocromia noted in tube 4. Medical Decision Making - Medical Decision Making Patient presents with a chief complaint of a headache. On initial evaluation, vital signs are stable, patient is in no acute distress. Patient's history is concerning for subarachnoid hemorrhage. Patient be sent for computed tomography scan of the head followed by a lumbar puncture to definitively rule out SAH. Patient will be evaluated with basic blood work and coagulation studies. Patient given Tylenol initially for pain. Discussed risks / benefits of LP with the patient including bleeding, infection, damage to surrounding structures and post spinal tap headache. verbal and written consent were obtained. procedure performed according to procedure note, no complications, patient tolerated procedure well, patient instructed to lie flat for 30 minutes. Procedure performed after negative CT scan of the head and neck. EKG performed at 1625 shows sinus bradycardia with a rate of 56 bpm. EKG otherwise unremarkable. 8:06 PM Lab evaluation of this patient is unremarkable. CSF from tube 4 shows 127 red blood cells, otherwise CSF is unremarkable. I discussed with lab the need for cell count in Tube 1, however they state that the specimen has already been spun therefore, cell count will be inaccurate. On re-examination, patient states his headache is not improved, even a little worse. currently patient in CT for CTA head and neck to evaluate for aneurisms. this case was discussed with neurology, Dr. Swain, who at this time recommends transfer for neurosurgical consult and observation. 9:[address] angiogram of the head and neck shows no acute abnormality. I discussed the results of the patient and advised transfer to [facility] for neurosurgical consult and observation. The patient is agreeable. This case was discussed with Dr. Oleary who accepts transfer. Patient was updated on the care plan, verbalizes agreement. - Lab Data Result diagrams: 02/17/18 16:39 02/17/18 16:39 Lab Results 02/17/18 02/17/18 02/17/18 Range/Units 16:39 16:39 16:39 WBC 6.2 (3.8-10.6) k/uL RBC 4.67 (4.30-5.90) m/uL Hgb 13.9 (13.0-17.5) gm/dL Hct 40.4 (39.0-53.0) % MCV 86.4 (80.0-100.0) fL MCH 29.7 (25.0-35.0) pg MCHC 34.4 (31.0-37.0) g/dL RDW 13.1 (11.5-15.5) % Plt Count 174 (150-450) k/uL Neutrophils % 64 % Lymphocytes % 25 % Monocytes % 7 % Eosinophils % 2 % Basophils % 0 % Neutrophils # 3.9 (1.3-7.7) k/uL Lymphocytes # 1.6 (1.0-4.8) k/uL Monocytes # 0.4 (0-1.0) k/uL Eosinophils # 0.1 (0-0.7) k/uL Basophils # 0.0 (0-0.2) k/uL PT 11.0 (9.0-12.0) sec INR 1.1 (<1.2) Sodium 140 (137-145) mmol/L Potassium 3.7 (3.5-5.1) mmol/L Chloride 101 (98-107) mmol/L Carbon Dioxide 24 (22-30) mmol/L Anion Gap 15 mmol/L BUN 25 H (9-20) mg/dL Creatinine 0.79 (0.66-1.25) mg/dL Est GFR (CKD-EPI)AfAm >90 (>60 ml/min/1.73 sqM) Est GFR (CKD-EPI)NonAf >90 (>60 ml/min/1.73 sqM) Glucose 227 H (74-99) mg/dL Calcium 9.5 (8.4-10.2) mg/dL CSF Tube Number CSF Volume CSF Appearance CSF Color CSF RBC (0-10) u/L CSF Tot Nucleated Cells (0-5) u/L CSF Crenated Cells % CSF Fresh RBCs % CSF Glucose (40-70) mg/dL CSF Total Protein (12-60) mg/dL 02/17/18 02/17/18 Range/Units 17:20 17:20 WBC (3.8-10.6) k/uL RBC (4.30-5.90) m/uL Hgb (13.0-17.5) gm/dL Hct (39.0-53.0) % MCV (80.0-100.0) fL MCH (25.0-35.0) pg MCHC (31.0-37.0) g/dL RDW (11.5-15.5) % Plt Count (150-450) k/uL Neutrophils % % Lymphocytes % % Monocytes % % Eosinophils % % Basophils % % Neutrophils # (1.3-7.7) k/uL Lymphocytes # (1.0-4.8) k/uL Monocytes # (0-1.0) k/uL Eosinophils # (0-0.7) k/uL Basophils # (0-0.2) k/uL PT (9.0-12.0) sec INR (<1.2) Sodium (137-145) mmol/L Potassium (3.5-5.1) mmol/L Chloride (98-107) mmol/L Carbon Dioxide (22-30) mmol/L Anion Gap mmol/L BUN (9-20) mg/dL Creatinine (0.66-1.25) mg/dL Est GFR (CKD-EPI)AfAm (>60 ml/min/1.73 sqM) Est GFR (CKD-EPI)NonAf (>60 ml/min/1.73 sqM) Glucose (74-99) mg/dL Calcium (8.4-10.2) mg/dL CSF Tube Number 4 1 CSF Volume 1.5 1.0 CSF Appearance Clear Clear CSF Color Colorless Colorless CSF RBC 127 H 555 H (0-10) u/L CSF Tot Nucleated Cells 2 0 (0-5) u/L CSF Crenated Cells 99 20 % CSF Fresh RBCs 1 80 % CSF Glucose 91 H (40-70) mg/dL CSF Total Protein 36 (12-60) mg/dL Disposition Clinical Impression: SAH (subarachnoid hemorrhage), Headache Disposition: OTHER INSTITUTION NOT DEFINED Condition: Good Instructions: Acute Headache (ED) Is patient prescribed a controlled substance at d/c from ED?: No Referrals: Vivian Hamlin MD [Primary Care Provider] - 1-2 days - Out of Hospital Transfer - Req. Specs Out of Hospital Transfer - Requested Specifics: Other Emergency Center ([facility])
[2018-02-17] MEDS ORDERED: SODIUM CHLORIDE 0.9% 1,000 ML IV ONE ×2 (16:34→18:48)
--- NOTE | 2018-02-17 16:52 | CT ---
EXAMINATION TYPE: CT brain neck chest wo con DATE OF EXAM: 02/17/2018 COMPARISON: 10/17/2017 CT brain HISTORY: CHING, neck and upper back pain. No known injury CT DLP: 1549.3 mGycm, Automated exposure control for dose reduction was used. CONTRAST: Patient injected with 0 mL of Isovue 300. CT of the brain is performed utilizing 3 mm thick sections through the posterior fossa and 3 mm thick sections through the remaining calvarium. Study is performed within 24 hours of arrival to the hospital. No abnormal hyperdensity is present to suggest an acute intracranial hemorrhage. No mass lesion is evident. No acute infarcts are evident. Ventricles and sulci are appropriate for the patient age. Paranasal sinuses and mastoid air cells within the [id number]-sgim are clear. IMPRESSIONS: 1. Normal CT brain. CT cervical spine. COMPARISON: None CT of the cervical spine is performed in the axial plane at 2 mm thick sections. Reconstructed image s in the coronal, and sagittal plane are reviewed on the computer. There is a left paracentral disc herniation at C5-6 with moderate anterior thecal sac compression. Co rrelate with left radicular symptoms at this level. Mild disc bulging at C6-C7 has anterior thecal sac flattening. This may has some extension towards th e foramen. Uncovertebral joint hypertrophy is present contributing to narrowing of the foramen. No acute fractures are evident. Vertebral body alignment is normal. Disc heights are preserved. Vertebral body heights are preserved. IMPRESSIONS: 1. Left paracentral disc herniation C5-C6 with moderate anterior thecal sac compression. Correlate wi th the radicular symptoms. Consider MRI cervical spine for additional evaluation. 2. Mild disc bulging C6-C7 with anterior thecal sac flattening. 3. Foraminal narrowing bilaterally C6-7 due to uncovertebral joint hypertrophy and disc bulging. EXAMINATION TYPE: CT brain neck chest wo con DATE OF EXAM: 02/17/2018 COMPARISON: NONE HISTORY: CHING, neck and upper back pain. No known injury CT DLP: 1549.3 mGycm, Automated exposure control for dose reduction was used. CONTRAST: Performed injected with 0 mL of Isovue 300. TECHNIQUE: Axial images were obtained at 5 mm thick sections. Reconstructed images are reviewed on [employer] computer in the coronal plane. FINDINGS: Portion of the thyroid visualized is normal. No suspicious lung nodules or focal infiltrates are present. There is a small right pleural effusion. Few scattered areas of pneumonitis are scattered within the periphery of the right upper lung field and within the right lung base above the diaphragm.. Some minimal pneumonitis change may be within th e lingula. No enlarged mediastinal or hilar adenopathy is evident. The ascending aorta diameter at the level o f the main pulmonary artery is 2.9 cm. The main pulmonary artery diameter at the bifurcation is 2.[address] sections are obtained through the upper abdomen. Abdomen is essentially unremarkable. IMPRESSIONS: 1. Small right pleural effusion. 2. Few scattered tiny areas of pneumonitis change within the lung bases right upper lobe
[2018-02-17 17:01] LABS: Basophils % (A) 0 %; Eosinophils # (A) 0.1 k/uL (0-0.7); Eosinophils % (A) 2 %; HCT 40.4 % (39.0-53.0); HGB 13.9 gm/dL (13.0-17.5); Lymphocytes # (A) 1.6 k/uL (1.0-4.8); Lymphocytes % (A) 25 %; MCH 29.7 pg (25.0-35.0); MCHC 34.4 g/dL (31.0-37.0); MCV 86.4 fL (80.0-100.0); Mean Platelet Volume 9.9; Monocytes # (A) 0.4 k/uL (0-1.0); Monocytes % (A) 7 %; Neutrophils # (A) 3.9 k/uL (1.3-7.7); Neutrophils % (A) 64 %; Platelet Count 174 k/uL (150-450); RBC 4.67 m/uL (4.30-5.90); RDW 13.1 % (11.5-15.5); WBC 6.2 k/uL (3.8-10.6)
[2018-02-17 17:11] LABS: INR 1.1 (<1.2)
[2018-02-17 17:12] LABS: Anion Gap 15 mmol/L; Blood Urea Nitrogen 25 mg/dL (9-20); Calcium 9.5 mg/dL (8.4-10.2); Carbon Dioxide 24 mmol/L (22-30); Chloride 101 mmol/L (98-107); Glucose 227 mg/dL (74-99); Potassium 3.7 mmol/L (3.5-5.1); Sodium 140 mmol/L (137-145)
[2018-02-17 17:54] LABS: Glucose,CSF 91 mg/dL (40-70); Total Protein,CSF 36 mg/dL (12-60)
[2018-02-17 18:37] LABS: Appearance,CSF Clear; CSF Tube Number 4; CSF Tube Volume 1.5
[2018-02-17 18:46] VITALS: RESP 18
[2018-02-17] MEDS ORDERED: DEXAMETHASONE SOD PHOSPHATE 10 MG/ML 1 ML VIAL IV STA (18:48)
[2018-02-17] MEDS ORDERED: MORPHINE SULFATE 4 MG/ML SYRINGE IVP STA (18:48)
[2018-02-17] MEDS ORDERED: KETOROLAC 30 MG/ML 1 ML VIAL IVP STA (18:48)
[2018-02-17 18:58] LABS: Red Blood Cell,CSF 127 u/L (0-10)
[2018-02-17 18:59] LABS: Red Blood Cell, CSF Crenated 99 %; Red Blood Cell, CSF Fresh 1 %
[2018-02-17 19:02] LABS: Nucleated Cells, CSF 2 u/L (0-5)
[2018-02-17] MEDS ORDERED: RX INFO: IV CONTRAST WAS GIVEN 1 EACH MISC MISCELLANE PRN (19:30)
[2018-02-17 20:20] LABS: Appearance,CSF Clear; CSF Tube Number 1
[2018-02-17 20:21] LABS: Nucleated Cells, CSF 0 u/L (0-5); Red Blood Cell, CSF Crenated 20 %; Red Blood Cell, CSF Fresh 80 %; Red Blood Cell,CSF 555 u/L (0-10)
--- NOTE | 2018-02-17 20:45 | CT ---
EXAMINATION TYPE: CT angio head neck DATE OF EXAM: 02/17/2018 HISTORY: CHING with neck pain COMPARISON: NONE CT DLP: 246.2 mGycm. Automated Exposure Control for Dose Reduction was Utilized. TECHNIQUE: CTA scan of the neck is performed with IV Contrast, patient injected with 65 mL of Isovue 370, axial images are obtained, coronal and sagittal reformatted images are reviewed. Three-D recons tructed images are created on an independent workstation and reviewed. FINDINGS: Carotid/Vascular Structures: Internal carotid arteries bifurcate into A1 and M1 segments. The right A 1 segment may be hypoplastic. The anterior communicating artery appears to be patent. A2 segments are unremarkable. Middle cerebral artery branches appear normal. Posterior cerebral vasculature appears within normal limits. Three-D reconstructed images are reviewed. Left posterior communicating artery is patent. Right poste rior communicating artery is not identified. Carotid bifurcations appear within normal limits. No suspicious flow-limiting stenosis is evident. Mi ld plaquing is present at the left carotid bifurcation Other: There is a three-vessel arch. Lung apices within the [id number] are unremarkable. Thyroid a s visualized is normal. Subglottic airway within the hqmjp-br-[id number] is normal. Submandibular glands an d parotid glands appear normal. Parapharyngeal spaces are unremarkable. Torus tubarius and fossa of R osenmuller are normal. IMPRESSION: 1. [place] is within normal limits. 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 2. No significant flow-limiting stenosis bilateral carotid bifurcations.
[2018-02-17 21:02] VITALS: BP 129/59; PULSE 59; TEMP 97.1
== END 2018-02-17 21:50 | disposition other institution (70) ==
LOC: EC 15:46
DX: I60.9 Nontraumatic subarachnoid hemorrhage, unspecified (principal); E11.9 Type 2 diabetes mellitus without complications; K21.9 Gastro-esophageal reflux disease without esophagitis; I10 Essential (primary) hypertension; I25.2 Old myocardial infarction; N42.9 Disorder of prostate, unspecified; Z85.6 Personal history of leukemia; Z95.5 Presence of coronary angioplasty implant and graft; Z79.84 Long term (current) use of oral hypoglycemic drugs; Z79.899 Other long term (current) drug therapy
CPT/HCPCS: 99285 ×2; 62270 ×2; 96374 ×2; 96375 ×3; 96361 ×3; 36415; 93005; 84157; 80048; 82945; 85025; 85610; 89050; 87070; 87205; 70496; 70490; 70450; 71250; 70498; J2270; J1100; J1885; Q9967

== ENCOUNTER 2018-03-07 00:26 | Emergency (ER) | payer BC, OTHER ==
[2018-03-07 00:31] VITALS: TEMP 97.9
[2018-03-07] MEDS ORDERED: ONDANSETRON 4 MG/2 ML VIAL IVP STA (00:38)
[2018-03-07] MEDS ORDERED: RX INFO: IV CONTRAST WAS GIVEN 1 EACH MISC MISCELLANE PRN (00:38)
[2018-03-07] MEDS ORDERED: MORPHINE SULFATE 4 MG/ML SYRINGE IV STA (00:38)
[2018-03-07] MEDS ORDERED: SODIUM CHLORIDE 0.9% 1,000 ML IV STA (00:38)
[2018-03-07] MEDS ORDERED: PANTOPRAZOLE 40 MG/10 ML VIAL IVP STA (00:38)
[2018-03-07 01:22] LABS: Basophils % (A) 0 %; Eosinophils # (A) 0.2 k/uL (0-0.7); Eosinophils % (A) 3 %; HGB 14.4 gm/dL (13.0-17.5); Lymphocytes # (A) 1.6 k/uL (1.0-4.8); Lymphocytes % (A) 31 %; MCH 30.8 pg (25.0-35.0); MCHC 35.2 g/dL (31.0-37.0); MCV 87.5 fL (80.0-100.0); Monocytes # (A) 0.5 k/uL (0-1.0); Monocytes % (A) 9 %; Neutrophils # (A) 2.8 k/uL (1.3-7.7); Neutrophils % (A) 53 %; Platelet Count 191 k/uL (150-450); RBC 4.68 m/uL (4.30-5.90); RDW 13.3 % (11.5-15.5); WBC 5.2 k/uL (3.8-10.6)
[2018-03-07 01:23] LABS: Appearance,Urine Clear (Clear); Bilirubin,Urine Negative (Negative); Blood,Urine Negative (Negative); Color,Urine Light Yellow; Glucose,Urine (UA) 3+ (Negative); Ketones,Urine Negative (Negative); Leukocyte Esterase,Urine Negative (Negative); Nitrite,Urine Negative (Negative); Protein,Urine Negative (Negative); Specific Gravity,Urine 1.008 (1.001-1.035); Urobilinogen,Urine <2.0 mg/dL (<2.0)
[2018-03-07 01:39] LABS: ALT 57 U/L (21-72); AST 27 U/L (17-59); Albumin 4.4 g/dL (3.5-5.0); Alkaline Phosphatase 61 U/L (38-126); Amylase 87 U/L (30-110); Anion Gap 14 mmol/L; Blood Urea Nitrogen 16 mg/dL (9-20); Calcium 9.6 mg/dL (8.4-10.2); Carbon Dioxide 24 mmol/L (22-30); Chloride 103 mmol/L (98-107); Creatine Kinase 79 U/L (55-170); Glucose 154 mg/dL (74-99); Lipase 123 U/L (23-300); Potassium 3.8 mmol/L (3.5-5.1); Sodium 141 mmol/L (137-145); Total Bilirubin 0.5 mg/dL (0.2-1.3); Total Protein 7.1 g/dL (6.3-8.2)
[2018-03-07 01:51] LABS: Creatine Kinase MB 0.6 ng/mL (0.0-2.4); Troponin I <0.012 ng/mL (0.000-0.034)
--- NOTE | 2018-03-07 02:13 | CT ---
EXAMINATION TYPE: CT angio chest DATE OF EXAM: 03/07/2018 2:05 AM COMPARISON: NONE HISTORY: pt. c/o lower chest/upper abdominal pain. CT DLP: 1836.10 mGycm Automated exposure control for dose reduction was used. CONTRAST: CTA scan of the thorax is performed with IV Contrast, patient injected with 100 mL of Isovue 370, pul monary embolism protocol. There are 3-D post processed images.. FINDINGS: There is small right pleural effusion. There is mild linear infiltrate and atelectasis in the right l ower lobe and right middle lobe. There is no pulmonary consolidation. There is no evidence of pulmona ry mass. Heart size is normal. There is no mediastinal adenopathy. There are no hilar masses. There i s normal contrast opacification of the pulmonary arteries. Thoracic aorta appears normal. There is no aneurysm or dissection. The bony thorax is intact. IMPRESSION: NO EVIDENCE OF PULMONARY EMBOLISM. MILD ATELECTASIS IN THE RIGHT LOWER LOBE AND RIGHT MIDDLE LOBE.
--- NOTE | 2018-03-07 02:19 | CT ---
EXAMINATION TYPE: CT abdomen pelvis w con DATE OF EXAM: 03/07/2018 COMPARISON: NONE HISTORY: pt. c/o lower chest/upper abdominal pain. CT DLP: 1836.10 mGycm Automated exposure control for dose reduction was used. TECHNIQUE: Helical acquisition of images was performed from the lung bases through the pelvis. CONTRAST: Performed without Oral Contrast and with IV Contrast, patient injected with 100 mL of Isovue 370. FINDINGS: There is some mild atelectasis in the right middle lobe and right lower lobe. There is small right pl eural effusion.. Heart size is normal. There is no pericardial effusion. Liver spleen pancreas appear normal. Bile ducts are not dilated. Gallbladder appears normal. There is no adrenal mass. There is mild right-sided hydronephrosis and hydroureter. No calculus is se en. There is 1.5 cm cortical cyst on the upper pole left kidney. There are other smaller renal cortic al cysts. There is no retroperitoneal adenopathy. There is no ascites. Appendix is not seen. There is no sign of appendicitis. Bladder distends smoothly. I see no pelvic mass. I see no intestinal wall t hickening. There are no dilated loops. There is no bony destructive process. IMPRESSION: SMALL RIGHT PLEURAL EFFUSION. MILD RIGHT LOWER LOBE AND RIGHT MIDDLE LOBE INFILTRATE AND ATELECTASIS. MILD RIGHT-SIDED HYDRONEPHROSIS AND HYDROURETER THAT COULD RELATE TO PREVIOUS OBSTRUCTION. NO OBSTRUC TING LESION SEEN. NORMAL RENAL FUNCTION. SMALL LEFT RENAL CORTICAL CYST. There is slight fullness noted of the left ureter also.
--- NOTE | 2018-03-07 02:43 | ED ---
General Adult HPI - General Chief complaint: Abdominal Pain Stated complaint: Abdominal Pain Time Seen by Provider: 03/07/18 00:37 Source: patient, family, RN notes reviewed, old records reviewed, Caregiver Mode of arrival: ambulatory Limitations: no limitations - History of Present Illness Initial comments: This is a 52-year-old male the ER for evaluation. States coming in for evaluation regards to chest pain severe chest pain shortness of breath right- sided chest pain abdominal pain. Multiple complaints, patient's poor historian unable to give completely accurate history, patient from patient's family as well as leg which barrier. Pain is been on and off for about 3 days, worse today with shortness of breath. No known fevers. No sweating. No prior similar history - Related Data Home Medications Medication Instructions Recorded Confirmed Nilotinib HCl [Tasigna] 300 mg PO BID 09/13/14 03/07/18 Tamsulosin HCl [Flomax] 0.4 mg PO HS 01/05/17 03/07/18 metFORMIN HCL [Glucophage] 500 mg PO BID 01/05/17 03/07/18 Metoprolol Tartrate 25 mg PO BID 05/10/17 03/07/18 Olopatadine HCl [Pataday] 1 drop BOTH EYES BID 05/10/17 03/07/18 Diclofenac Sodium [Voltaren] 75 mg PO BID 10/17/17 03/07/18 Glimepiride [Amaryl] 1 mg PO DAILY 10/17/17 03/07/18 Methocarbamol [Robaxin-750] 750 mg PO DAILY 10/17/17 03/07/18 Ranitidine HCl [Zantac] 150 mg PO HS 10/17/17 03/07/18 Calcium Carb-Vit D 500Mg-200Un 1 tab PO DAILY 10/18/17 03/07/18 [Oscal 500+D] Meloxicam [Mobic] 7.5 mg PO DAILY 03/07/18 03/07/18 Previous Rx's Medication Instructions Recorded Acetaminophen Tab [Tylenol] 650 mg PO Q6HR PRN tab 10/18/17 Aspirin [Adult Low Dose Aspirin EC] 81 mg PO DAILY #30 tablet. 10/18/17 Aspirin [Adult Low Dose Aspirin EC] 81 mg PO DAILY 90 Days #90 10/18/17 tablet. Atorvastatin [Lipitor] 20 mg PO DAILY #30 tab 10/18/17 Allergies Allergy/AdvReac Type Severity Reaction Status Date / Time No Known Allergies Allergy Verified 03/07/18 00:30 Review of Systems ROS Statement: Those systems with pertinent positive or pertinent negative responses have been documented in the HPI. ROS Other: All systems not noted in ROS Statement are negative. Past Medical History Past Medical History: Chest Pain / Angina, Diabetes Mellitus, GERD/Reflux, Hypertension, Myocardial Infarction ([place]), Prostate Disorder Additional Past Medical History / Comment(s): enlarged prostate, chronic low back pain with degenerative disc disease, Chronic lymphocytic leukemia Last Myocardial Infarction Date:: 10/09/2015 History of Any Multi-Drug Resistant Organisms: None Reported Past Surgical History: Appendectomy, Heart Catheterization With Stent Additional Past Surgical History / Comment(s): heart cath with 2 stents to circ. Past Anesthesia/Blood Transfusion Reactions: No Reported Reaction Date of Last Stent Placement:: 10/09/15 Past Psychological History: No Psychological Hx Reported Smoking Status: Never smoker Past Alcohol Use History: None Reported Past Drug Use History: None Reported - Past Family History Father Family Medical History: Diabetes Mellitus Mother Family Medical History: Diabetes Mellitus General Exam Limitations: no limitations General appearance: alert, in no apparent distress Head exam: Present: atraumatic, normocephalic, normal inspection Eye exam: Present: normal appearance, PERRL, EOMI. Absent: scleral icterus, conjunctival injection, periorbital swelling ENT exam: Present: normal exam, mucous membranes moist Neck exam: Present: normal inspection. Absent: tenderness, meningismus, lymphadenopathy Respiratory exam: Present: normal lung sounds bilaterally. Absent: respiratory distress, wheezes, rales, rhonchi, stridor Cardiovascular Exam: Present: regular rate, normal rhythm, normal heart sounds. Absent: systolic murmur, diastolic murmur, rubs, gallop, clicks GI/Abdominal exam: Present: soft, normal bowel sounds. Absent: distended, tenderness, guarding, rebound, rigid Extremities exam: Present: normal inspection, full ROM, normal capillary refill. Absent: tenderness, pedal edema, joint swelling, calf tenderness Back exam: Present: normal inspection Neurological exam: Present: alert, oriented X3, CN II-XII intact Psychiatric exam: Present: normal affect, normal mood Skin exam: Present: warm, dry, intact, normal color. Absent: rash Course Vital Signs 03/07/18 00:27 Temperature 97.9 F Pulse Rate 71 Respiratory 20 Rate Blood Pressure 167/77 O2 Sat by Pulse 99 Oximetry - Reevaluation(s) Reevaluation #1: 03/07/18 02:45 Patient is in no acute distress without significant complaint EKG Findings - EKG Comments: EKG Findings:: Physical and psych EKG shows normal sinus rhythm rate of 61, [place] 138, QRS 82, QTc 386 Medical Decision Making - Medical Decision Making 52 male the ER for evaluation, positive pneumonia, will discharge home on antibiotics return to ER if symptoms worsen - Lab Data Result diagrams: 03/07/18 01:08 03/07/18 01:08 Lab Results 03/07/18 03/07/18 03/07/18 Range/Units 01:08 01:08 01:08 WBC 5.2 (3.8-10.6) k/uL RBC 4.68 (4.30-5.90) m/uL Hgb 14.4 (13.0-17.5) gm/dL Hct 41.0 (39.0-53.0) % MCV 87.5 (80.0-100.0) fL MCH 30.8 (25.0-35.0) pg MCHC 35.2 (31.0-37.0) g/dL RDW 13.3 (11.5-15.5) % Plt Count 191 (150-450) k/uL Neutrophils % 53 % Lymphocytes % 31 % Monocytes % 9 % Eosinophils % 3 % Basophils % 0 % Neutrophils # 2.8 (1.3-7.7) k/uL Lymphocytes # 1.6 (1.0-4.8) k/uL Monocytes # 0.5 (0-1.0) k/uL Eosinophils # 0.2 (0-0.7) k/uL Basophils # 0.0 (0-0.2) k/uL Sodium 141 (137-145) mmol/L Potassium 3.8 (3.5-5.1) mmol/L Chloride 103 (98-107) mmol/L Carbon Dioxide 24 (22-30) mmol/L Anion Gap 14 mmol/L BUN 16 (9-20) mg/dL Creatinine 0.70 (0.66-1.25) mg/dL Est GFR (CKD-EPI)AfAm >90 (>60 ml/min/1.73 sqM) Est GFR (CKD-EPI)NonAf >90 (>60 ml/min/1.73 sqM) Glucose 154 H (74-99) mg/dL Plasma Lactic Acid [place] (0.7-2.0) mmol/L Calcium 9.6 (8.4-10.2) mg/dL Total Bilirubin 0.5 (0.2-1.3) mg/dL AST 27 (17-59) U/L ALT 57 (21-72) U/L Alkaline Phosphatase 61 (38-126) U/L Total Creatine Kinase 79 (55-170) U/L CK-MB (CK-2) 0.6 (0.0-2.4) ng/mL CK-MB (CK-2) Rel Index 0.8 Troponin I <0.012 (0.000-0.034) ng/mL Total Protein 7.1 (6.3-8.2) g/dL Albumin 4.4 (3.5-5.0) g/dL Amylase 87 (30-110) U/L Lipase 123 (23-300) U/L Urine Color Urine Appearance (Clear) Urine pH (5.0-8.0) Ur Specific [place] (1.001-1.035) Urine Protein (Negative) Urine Glucose (UA) (Negative) Urine Ketones (Negative) Urine Blood (Negative) Urine Nitrite (Negative) Urine Bilirubin (Negative) Urine Urobilinogen (<2.0) mg/dL Ur Leukocyte Esterase (Negative) 03/07/18 03/07/18 Range/Units 01:08 01:08 WBC (3.8-10.6) k/uL RBC (4.30-5.90) m/uL Hgb (13.0-17.5) gm/dL Hct (39.0-53.0) % MCV (80.0-100.0) fL MCH (25.0-35.0) pg MCHC (31.0-37.0) g/dL RDW (11.5-15.5) % Plt Count (150-450) k/uL Neutrophils % % Lymphocytes % % Monocytes % % Eosinophils % % Basophils % % Neutrophils # (1.3-7.7) k/uL Lymphocytes # (1.0-4.8) k/uL Monocytes # (0-1.0) k/uL Eosinophils # (0-0.7) k/uL Basophils # (0-0.2) k/uL Sodium (137-145) mmol/L Potassium (3.5-5.1) mmol/L Chloride (98-107) mmol/L Carbon Dioxide (22-30) mmol/L Anion Gap mmol/L BUN (9-20) mg/dL Creatinine (0.66-1.25) mg/dL Est GFR (CKD-EPI)AfAm (>60 ml/min/1.73 sqM) Est GFR (CKD-EPI)NonAf (>60 ml/min/1.73 sqM) Glucose (74-99) mg/dL Plasma Lactic Acid [place] 1.3 (0.7-2.0) mmol/L Calcium (8.4-10.2) mg/dL Total Bilirubin (0.2-1.3) mg/dL AST (17-59) U/L ALT (21-72) U/L Alkaline Phosphatase (38-126) U/L Total Creatine Kinase (55-170) U/L CK-MB (CK-2) (0.0-2.4) ng/mL CK-MB (CK-2) Rel Index Troponin I (0.000-0.034) ng/mL Total Protein (6.3-8.2) g/dL Albumin (3.5-5.0) g/dL Amylase (30-110) U/L Lipase (23-300) U/L Urine Color Light Yellow Urine Appearance Clear (Clear) Urine pH 7.0 (5.0-8.0) Ur Specific [place] 1.008 (1.001-1.035) Urine Protein Negative (Negative) Urine Glucose (UA) 3+ H (Negative) Urine Ketones Negative (Negative) Urine Blood Negative (Negative) Urine Nitrite Negative (Negative) Urine Bilirubin Negative (Negative) Urine Urobilinogen <2.0 (<2.0) mg/dL Ur Leukocyte Esterase Negative (Negative) - Radiology Data Radiology results: report reviewed (CTA chest CT head and pelvis shows positive pneumonia), image reviewed Disposition Clinical Impression: Community acquired bacterial pneumonia Disposition: HOME SELF-CARE Condition: Good Instructions: Community Acquired Pneumonia (ED) Is patient prescribed a controlled substance at d/c from ED?: No Referrals: Vivian Hamlin MD [Primary Care Provider] - 1-2 days
[2018-03-07] MEDS ORDERED: LEVOFLOXACIN 750 MG TAB PO STA (02:46)
[2018-03-07 03:06] VITALS: BP 149/69; PULSE 61; RESP 16
== END 2018-03-07 03:06 | disposition home or self-care (01) ==
LOC: EC 00:26
DX: J15.9 Unspecified bacterial pneumonia (principal); R10.9 Unspecified abdominal pain; I10 Essential (primary) hypertension; C91.10 Chronic lymphocytic leukemia of B-cell type not having achieved remission; E11.9 Type 2 diabetes mellitus without complications; K21.9 Gastro-esophageal reflux disease without esophagitis; G89.29 Other chronic pain; N40.0 Benign prostatic hyperplasia without lower urinary tract symptoms; I25.2 Old myocardial infarction; Z79.1 Long term (current) use of non-steroidal anti-inflammatories (NSAID); Z79.84 Long term (current) use of oral hypoglycemic drugs; Z79.899 Other long term (current) drug therapy; Z86.79 Personal history of other diseases of the circulatory system; Z90.49 Acquired absence of other specified parts of digestive tract; Z95.5 Presence of coronary angioplasty implant and graft
CPT/HCPCS: 36415; 93005; 80053; 82150; 82550; 82553; 83605; 83690; 84484; 85025; 81003; 87086; 71275; 74177; 99285; 96374; 96375 ×2; 96361 ×2; J2270; J2405; C9113; Q9967

== ENCOUNTER → 2018-03-19 | Outpatient (CLI) | payer BC, OTHER ==
--- NOTE | 2018-03-19 09:37 | MR ---
EXAMINATION TYPE: MR cervical spine wo con DATE OF EXAM: 03/19/2018 COMPARISON: NONE HISTORY: Headache / Cervicalgia / HNP TECHNIQUE: Multiplanar, multisequence images of the cervical spine were acquired. C2-C3: No evidence for degenerative disc disease. No disc bulge/herniation or protrusion. No Canal stenosis. Foramina are patent bilaterally. C3-C4: No evidence for degenerative disc disease. No disc bulge/herniation or protrusion. No Canal stenosis. Foramina are patent bilaterally. C4-C5: No evidence for degenerative disc disease. No disc bulge/herniation or protrusion. No Canal stenosis. Foramina are patent bilaterally. Uncovertebral joint hypertrophy noted bilaterally. C5-C6: Broad-based left paracentral disc protrusion or small herniation capped by spur. Uncovertebral joint hypertrophy bilaterally with mild bilateral foraminal encroachment. There is mild effacement o f thecal sac but no spinal cord contact. C6-C7: No evidence for degenerative disc disease. No disc bulge/herniation or protrusion. No Canal stenosis. Foramina are patent bilaterally. Uncovertebral joint hypertrophy bilaterally. C7-T1: No evidence for degenerative disc disease. No disc bulge/herniation or protrusion. No Canal stenosis. Foramina are patent bilaterally. Cervical segments are intact. There is normal alignment. Cervical spinal cord is of normal signal. Craniovertebral junction relationships are within normal limits. IMPRESSION: 1. Broad-based left paracentral disc protrusion or small herniation C5-C6 with mild effacement of the nitish sac and foraminal encroachment but no spinal cord contact.
== END | disposition home or self-care (01) ==
LOC: RADMRIMAIN 08:39
PROVIDERS: ATTEND Orthopaedic Surgery
DX: M50.222 Other cervical disc displacement at C5-C6 level (principal)
CPT/HCPCS: 72141

== ENCOUNTER 2018-07-09 23:52 | Emergency (ER) | payer BC, OTHER ==
[2018-07-10] MEDS ORDERED: BENZONATATE 100 MG CAP PO STA (00:42)
[2018-07-10] MEDS ORDERED: SODIUM CHLORIDE 0.9% 1,000 ML IV STA (00:42)
--- NOTE | 2018-07-10 00:47 | ED ---
General Adult HPI - General Source: patient Mode of arrival: ambulatory Limitations: no limitations <Lyssa Wall - Last Filed: 07/10/18 03:41> <Carrie Pena - Last Filed: 07/11/18 03:15> - General Chief complaint: Upper Respiratory Infection Stated complaint: chest congestion,cough Time Seen by Provider: 07/10/18 00:25 - History of Present Illness Initial comments: 52-year-old male patient presents to the emergency department today for evaluation of cough, shortness of breath, and chest pain. Patient states that he has been sick with upper respiratory symptoms for the last 2 weeks. Patient states that he has nasal congestion, facial pressure, sore throat, and has had a persistent cough. Patient states that he has coughing episodes that last for quite some time and nearly caused him to vomit afterwards. Patient states that he has been having sharp chest pains across his chest. States that they radiate through to his back. Patient states he has taking nitroglycerin sublingual for this as he does have a history of myocardial infarction with stent placement. States that the nitro did seem to resolve the pain but then would return shortly afterwards. Patient states that the pain does feel similar to when he had a heart attack in the past. Patient does admit that he just returned from [facility] 4 days ago. States he was visiting there for 2 months. He denies any leg pain or calf tenderness. Patient denies any recent rash, fever, chills, abdominal pain, nausea, vomiting, diarrhea, constipation, back pain, numbness, tingling, dizziness, weakness, hematuria, dysuria, urinary urgency, urinary frequency, headache, visual changes, or any other complaints. (Lyssa Wall) - Related Data Home Medications Medication Instructions Recorded Confirmed Nilotinib HCl [Tasigna] 300 mg PO BID 09/13/14 07/10/18 Tamsulosin HCl [Flomax] 0.4 mg PO HS 01/05/17 07/10/18 metFORMIN HCL [Glucophage] 500 mg PO BID 01/05/17 07/10/18 Metoprolol Tartrate 25 mg PO BID 05/10/17 07/10/18 Olopatadine HCl [Pataday] 1 drop BOTH EYES BID 05/10/17 07/10/18 Diclofenac Sodium [Voltaren] 75 mg PO BID 10/17/17 07/10/18 Glimepiride [Amaryl] 1 mg PO DAILY 10/17/17 07/10/18 Methocarbamol [Robaxin-750] 750 mg PO DAILY 10/17/17 07/10/18 Ranitidine HCl [Zantac] 150 mg PO HS 10/17/17 07/10/18 Calcium Carb-Vit D 500Mg-200Un 1 tab PO DAILY 10/18/17 07/10/18 [Oscal 500+D] Meloxicam [Mobic] 7.5 mg PO DAILY 03/07/18 07/10/18 Previous Rx's Medication Instructions Recorded Acetaminophen Tab [Tylenol] 650 mg PO Q6HR PRN tab 10/18/17 Aspirin [Adult Low Dose Aspirin EC] 81 mg PO DAILY #30 tablet. 10/18/17 Aspirin [Adult Low Dose Aspirin EC] 81 mg PO DAILY 90 Days #90 10/18/17 tablet. Atorvastatin [Lipitor] 20 mg PO DAILY #30 tab 10/18/17 Levofloxacin [Levaquin] 750 mg PO DAILY #7 tab 03/07/18 Albuterol Sulfate [Proair Hfa] 1 - 2 puff INHALATION Q6HR PRN #1 07/10/18 inhaler Promethaz-Cod 6.25-10 mg/5 ml 5 ml PO Q4HR PRN 3 Days #90 ml 07/10/18 [Phenergan with Codeine] methylPREDNISolone [Medrol Dose 4 mg PO DIRECTED #1 pack 07/10/18 Pack] Allergies Allergy/AdvReac Type Severity Reaction Status Date / Time No Known Allergies Allergy Verified 03/07/18 00:30 Review of Systems ROS Other: All systems not noted in ROS Statement are negative. <Lyssa Wall - Last Filed: 07/10/18 03:41> ROS Other: All systems not noted in ROS Statement are negative. <Carrie Pena - Last Filed: 07/11/18 03:15> ROS Statement: Those systems with pertinent positive or pertinent negative responses have been documented in the HPI. Past Medical History Past Medical History: Chest Pain / Angina, Diabetes Mellitus, GERD/Reflux, Hypertension, Myocardial Infarction ([place]), Prostate Disorder Additional Past Medical History / Comment(s): enlarged prostate, chronic low back pain with degenerative disc disease, Chronic lymphocytic leukemia Last Myocardial Infarction Date:: 10/09/2015 History of Any Multi-Drug Resistant Organisms: None Reported Past Surgical History: Appendectomy, Heart Catheterization With Stent Additional Past Surgical History / Comment(s): heart cath with 2 stents to circ. Past Anesthesia/Blood Transfusion Reactions: No Reported Reaction Date of Last Stent Placement:: 10/09/15 Past Psychological History: No Psychological Hx Reported Smoking Status: Never smoker Past Alcohol Use History: None Reported Past Drug Use History: None Reported - Past Family History Father Family Medical History: Diabetes Mellitus Mother Family Medical History: Diabetes Mellitus <Lyssa Wall M - Last Filed: 07/10/18 03:41> General Exam Limitations: no limitations General appearance: alert, in no apparent distress, other (This is a well- developed, thin appearing adult male patient in no acute distress. Vital signs upon presentation are temperature 97.7F, pulse 66, respirations 20, blood pressure 145/73, pulse ox 100% on room air.) Eye exam: Present: normal appearance, PERRL, EOMI. Absent: scleral icterus, conjunctival injection, periorbital swelling ENT exam: Present: normal exam, mucous membranes moist, TM's normal bilaterally. Absent: normal oropharynx (Pharyngeal erythema) Neck exam: Present: normal inspection. Absent: tenderness, meningismus, lymphadenopathy (Bilateral anterior cervical lymphadenopathyanterior) Respiratory exam: Present: normal lung sounds bilaterally, other (Dry nonproductive cough noted throughout exam). Absent: respiratory distress, wheezes, rales, rhonchi, stridor Cardiovascular Exam: Present: regular rate, normal rhythm, normal heart sounds. Absent: systolic murmur, diastolic murmur, rubs, gallop, clicks GI/Abdominal exam: Present: soft, normal bowel sounds. Absent: distended, tenderness, guarding, rebound, rigid Neurological exam: Present: alert, oriented X3, CN II-XII intact Psychiatric exam: Present: normal affect, normal mood Skin exam: Present: warm, dry, intact, normal color. Absent: rash <Lyssa Wall M - Last Filed: 07/10/18 03:41> Vital Signs 07/09/18 07/10/18 07/10/18 23:56 02:18 02:27 Temperature 97.7 F 98.0 F Pulse Rate 66 59 L 87 Respiratory 20 16 16 Rate Blood Pressure 145/73 121/59 118/67 O2 Sat by Pulse 100 100 97 Oximetry EKG Findings - EKG Comments: EKG Findings:: EKG obtained at 0104 shows normal sinus rhythm with a ventricular rate of 63, MO interval 136, QRS duration 84, QTC 420, QTC 429. No evidence of ST elevation or depression. <Lyssa Wall - Last Filed: 07/10/18 03:41> Medical Decision Making - Lab Data Result diagrams: 07/10/18 00:59 07/10/18 00:59 - Radiology Data Radiology results: report reviewed, image reviewed <Lyssa Wall - Last Filed: 07/10/18 03:41> - Lab Data Result diagrams: 07/10/18 00:59 07/10/18 00:59 <Carrie Pena - Last Filed: 07/11/18 03:15> - Medical Decision Making 52-year-old male patient presented to the emergency department today for complaints of persistent cough and sharp chest pain to the bilateral chest. Physical examination was relatively unremarkable. Patient did have some mild chest tenderness. Lungs are clear to auscultation with good air movement. Patient has had upper respiratory symptoms for the last couple of weeks, however given patient's history of coronary artery disease with myocardial infarction or did perform lab testing and EKG. Labs were unremarkable with a normal white blood cell count, normal d-dimer, and normal troponin. Chest x- ray showed no acute cardiopulmonary process. Given exam and lab findings most likely patient is suffering from acute bronchitis after viral upper respiratory illness. Patient will be treated with cough syrup and steroids. He is afebrile and has no history of COPD or cigarette use so we'll withhold antibiotics at this time. He is instructed however to follow-up with his primary care physician for recheck in 1-2 days. Return parameters were discussed in detail. He verbalizes understanding and agrees with this plan. (Lyssa Wall) I was available for consultation in the emergency department. The history and physical exam were done by the midlevel provider. I was consulted for this patient's care. I reviewed the case with the midlevel provider and based on their presentation of the patient, I agree with the assessment, medical decision making and plan of care as documented. (Pena,Carrie P) - Lab Data Lab Results 07/10/18 07/10/18 07/10/18 Range/Units 00:59 00:59 00:59 WBC 5.7 (3.8-10.6) k/uL RBC 4.86 (4.30-5.90) m/uL Hgb 13.8 (13.0-17.5) gm/dL Hct 42.1 (39.0-53.0) % MCV 86.7 (80.0-100.0) fL MCH 28.4 (25.0-35.0) pg MCHC 32.8 (31.0-37.0) g/dL RDW 14.0 (11.5-15.5) % Plt Count 231 (150-450) k/uL Neutrophils % (Manual) 49 % Lymphocytes % (Manual) 32 % Monocytes % (Manual) 11 % Eosinophils % (Manual) 5 % Basophils % (Manual) 3 % Neutrophils # (Manual) 2.79 (1.3-7.7) k/uL Lymphocytes # (Manual) 1.82 (1.0-4.8) k/uL Monocytes # (Manual) 0.63 (0-1.0) k/uL Eosinophils # (Manual) 0.29 (0-0.7) k/uL Basophils # (Manual) 0.17 (0-0.2) k/uL Nucleated RBCs 0 (0-0) /100 WBC Manual Slide Review Performed Large Platelets Present PT (9.0-12.0) sec INR (<1.2) APTT (22.0-30.0) sec D-Dimer (<0.60) mg/L FEU Sodium 137 (137-145) mmol/L Potassium 3.7 (3.5-5.1) mmol/L Chloride 104 (98-107) mmol/L Carbon Dioxide 24 (22-30) mmol/L Anion Gap 9 mmol/L BUN 14 (9-20) mg/dL Creatinine 0.61 L (0.66-1.25) mg/dL Est GFR (CKD-EPI)AfAm >90 (>60 ml/min/1.73 sqM) Est GFR (CKD-EPI)NonAf >90 (>60 ml/min/1.73 sqM) Glucose 138 H (74-99) mg/dL Calcium 9.0 (8.4-10.2) mg/dL Magnesium 1.9 (1.6-2.3) mg/dL Total Bilirubin 0.6 (0.2-1.3) mg/dL AST 29 (17-59) U/L ALT 50 (21-72) U/L Alkaline Phosphatase 60 (38-126) U/L Total Creatine Kinase 43 L (55-170) U/L CK-MB (CK-2) 0.6 (0.0-2.4) ng/mL CK-MB (CK-2) Rel Index 1.4 Troponin I <0.012 (0.000-0.034) ng/mL Total Protein 6.7 (6.3-8.2) g/dL Albumin 3.7 (3.5-5.0) g/dL 07/10/18 Range/Units 00:59 WBC (3.8-10.6) k/uL RBC (4.30-5.90) m/uL Hgb (13.0-17.5) gm/dL Hct (39.0-53.0) % MCV (80.0-100.0) fL MCH (25.0-35.0) pg MCHC (31.0-37.0) g/dL RDW (11.5-15.5) % Plt Count (150-450) k/uL Neutrophils % (Manual) % Lymphocytes % (Manual) % Monocytes % (Manual) % Eosinophils % (Manual) % Basophils % (Manual) % Neutrophils # (Manual) (1.3-7.7) k/uL Lymphocytes # (Manual) (1.0-4.8) k/uL Monocytes # (Manual) (0-1.0) k/uL Eosinophils # (Manual) (0-0.7) k/uL Basophils # (Manual) (0-0.2) k/uL Nucleated RBCs (0-0) /100 WBC Manual Slide Review Large Platelets PT 10.7 (9.0-12.0) sec INR 1.1 (<1.2) APTT 24.8 (22.0-30.0) sec D-Dimer <0.17 (<0.60) mg/L FEU Sodium (137-145) mmol/L Potassium (3.5-5.1) mmol/L Chloride (98-107) mmol/L Carbon Dioxide (22-30) mmol/L Anion Gap mmol/L BUN (9-20) mg/dL Creatinine (0.66-1.25) mg/dL Est GFR (CKD-EPI)AfAm (>60 ml/min/1.73 sqM) Est GFR (CKD-EPI)NonAf (>60 ml/min/1.73 sqM) Glucose (74-99) mg/dL Calcium (8.4-10.2) mg/dL Magnesium (1.6-2.3) mg/dL Total Bilirubin (0.2-1.3) mg/dL AST (17-59) U/L ALT (21-72) U/L Alkaline Phosphatase (38-126) U/L Total Creatine Kinase (55-170) U/L CK-MB (CK-2) (0.0-2.4) ng/mL CK-MB (CK-2) Rel Index Troponin I (0.000-0.034) ng/mL Total Protein (6.3-8.2) g/dL Albumin (3.5-5.0) g/dL - Radiology Data Two-view x-ray of the chest is obtained. Heart min [place] normal. Lungs are clear. Diaphragm is normal. Bony thorax is intact. Pulmonary vascularity is normal. There is slightly elevated right diaphragm. Impression by Dr. Herzog shows no active cardiopulmonary disease. Mild chronic elevated right diaphragm could relate to partial paralysis. No change. (Lyssa Wall) Disposition Is patient prescribed a controlled substance at d/c from ED?: No Time of Disposition: 02:24 <Lyssa Wall - Last Filed: 07/10/18 03:41> <Carrie Pena - Last Filed: 07/11/18 03:15> Clinical Impression: Acute bronchitis Disposition: HOME SELF-CARE Condition: Good Instructions: Acute Bronchitis (ED) Additional Instructions: Take medications as directed. Follow-up with your primary care physician for recheck in 1-2 days. Return here immediately for any new, worsening, or concerning symptoms. Prescriptions: Albuterol Sulfate [Proair Hfa] 1 - 2 puff INHALATION Q6HR PRN #1 inhaler PRN Reason: Shortness Of Breath methylPREDNISolone [Medrol Dose Pack] 4 mg PO DIRECTED #1 pack Promethaz-Cod 6.25-10 mg/5 ml [Phenergan with Codeine] 5 ml PO Q4HR PRN 3 Days # 90 ml PRN Reason: Cough Referrals: Vivian Hamlin MD [Primary Care Provider] - 1-2 days
[2018-07-10 01:21] LABS: HCT 42.1 % (39.0-53.0); HGB 13.8 gm/dL (13.0-17.5); MCH 28.4 pg (25.0-35.0); MCHC 32.8 g/dL (31.0-37.0); MCV 86.7 fL (80.0-100.0); Mean Platelet Volume 7.3; Platelet Count 231 k/uL (150-450); RBC 4.86 m/uL (4.30-5.90); WBC 5.7 k/uL (3.8-10.6)
[2018-07-10 01:32] LABS: ALT 50 U/L (21-72); AST 29 U/L (17-59); Albumin 3.7 g/dL (3.5-5.0); Alkaline Phosphatase 60 U/L (38-126); Anion Gap 9 mmol/L; Blood Urea Nitrogen 14 mg/dL (9-20); Carbon Dioxide 24 mmol/L (22-30); Chloride 104 mmol/L (98-107); Glucose 138 mg/dL (74-99); Magnesium 1.9 mg/dL (1.6-2.3); Potassium 3.7 mmol/L (3.5-5.1); Sodium 137 mmol/L (137-145); Total Bilirubin 0.6 mg/dL (0.2-1.3); Total Protein 6.7 g/dL (6.3-8.2)
[2018-07-10 01:34] LABS: D-Dimer <0.17 mg/L FEU (<0.60); INR 1.1 (<1.2)
[2018-07-10 01:35] LABS: Partial Thromboplastin Time 24.8 sec (22.0-30.0); Prothrombin Time 10.7 sec (9.0-12.0)
--- NOTE | 2018-07-10 01:37 | XR ---
EXAMINATION TYPE: XR chest 2V DATE OF EXAM: 07/10/2018 COMPARISON: 10/17/2017 HISTORY: Chest pain TECHNIQUE: Frontal and lateral views of the chest are obtained. FINDINGS: Heart and mediastinum are normal. Lungs are clear. Diaphragm is normal. Bony thorax is int act. Pulmonary vascularity is normal. There is slight elevated right diaphragm. IMPRESSION: No active cardiopulmonary disease. Mild chronic elevated right diaphragm could relate to partial paralysis. No change.
[2018-07-10 01:43] LABS: Creatine Kinase 43 U/L (55-170)
[2018-07-10 01:57] LABS: Creatine Kinase MB 0.6 ng/mL (0.0-2.4); Troponin I <0.012 ng/mL (0.000-0.034)
[2018-07-10 01:58] LABS: Basophils # (M) 0.17 k/uL (0-0.2); Eosinophils # (M) 0.29 k/uL (0-0.7); Lymphocytes # (M) 1.82 k/uL (1.0-4.8); Monocytes # (M) 0.63 k/uL (0-1.0); Neutrophils # (M) 2.79 k/uL (1.3-7.7); Neutrophils % (M) 49 %; Nucleated Red Blood Cells 0 /100 WBC (0-0); Total Cells Counted 100
[2018-07-10 01:59] LABS: Large Platelets Present
[2018-07-10] MEDS ORDERED: methylPREDNISolone SOD SUCCI 125 MG/2 ML VIAL IV STA (02:20)
[2018-07-10 02:21] VITALS: RESP 16
[2018-07-10 02:29] VITALS: BP 118/67; PULSE 87; TEMP 98
== END 2018-07-10 02:38 | disposition home or self-care (01) ==
LOC: EC 23:52
DX: J20.9 Acute bronchitis, unspecified (principal); E11.9 Type 2 diabetes mellitus without complications; K21.9 Gastro-esophageal reflux disease without esophagitis; I10 Essential (primary) hypertension; I25.2 Old myocardial infarction; N42.9 Disorder of prostate, unspecified; M54.5 Low back pain; G89.29 Other chronic pain; Z85.6 Personal history of leukemia; Z79.84 Long term (current) use of oral hypoglycemic drugs; Z79.899 Other long term (current) drug therapy; Z79.1 Long term (current) use of non-steroidal anti-inflammatories (NSAID); Z95.5 Presence of coronary angioplasty implant and graft
CPT/HCPCS: 36415; 71046; 80053; 82550; 82553; 83735; 84484; 85025; 85379; 85610; 85730; 93005; 96361; 96374; 99284

== ENCOUNTER 2018-09-14 23:04 | Emergency (ER) | payer BC, OTHER ==
--- NOTE | 2018-09-14 23:58 | ED ---
General Adult HPI - General Chief complaint: Dizziness Stated complaint: Dizziness, neck pain Time Seen by Provider: 09/14/18 23:48 Source: patient Mode of arrival: ambulatory Limitations: no limitations - History of Present Illness Initial comments: This patient's 52-year-old man who presents to be evaluated for back and neck pain is been going on since this morning, 7 AM. The patient has previously had neck issues and did have MRI a few months ago. The patient states that when he was not having improvement throughout the course of today and into tonight he decided to be seen here. He is not having weakness or numbness of the extremities. Onset/Timin -: days(s) Location: neck, back Radiation: non-radiation Consistency: constant Improves with: none Worsens with: none - Related Data Home Medications Medication Instructions Recorded Confirmed metFORMIN HCL [Glucophage] 500 mg PO BID 01/05/17 07/10/18 Diclofenac Sodium [Voltaren] 75 mg PO BID 10/17/17 07/10/18 Calcium Carb-Vit D 500Mg-200Un 1 tab PO DAILY 10/18/17 07/10/18 [Oscal 500+D] Meloxicam [Mobic] 7.5 mg PO DAILY 03/07/18 07/10/18 Glimepiride [Amaryl] 1 mg PO DAILY 09/14/18 09/14/18 Nilotinib HCl [Tasigna] 150 mg PO DAILY 09/14/18 09/14/18 Pantoprazole [Protonix] 0 mg 09/14/18 09/14/18 traMADol HCl [Ultram] 100 mg PO Q6HR PRN 09/14/18 09/14/18 Previous Rx's Medication Instructions Recorded Aspirin [Adult Low Dose Aspirin EC] 81 mg PO DAILY 90 Days #90 10/18/17 tablet. Atorvastatin [Lipitor] 20 mg PO DAILY #30 tab 10/18/17 Allergies Allergy/AdvReac Type Severity Reaction Status Date / Time No Known Allergies Allergy Verified 03/07/18 00:30 Review of Systems ROS Statement: Those systems with pertinent positive or pertinent negative responses have been documented in the HPI. ROS Other: All systems not noted in ROS Statement are negative. Constitutional: Denies: fever, chills, weakness Respiratory: Denies: cough, dyspnea Cardiovascular: Denies: chest pain, palpitations Gastrointestinal: Denies: abdominal pain, diarrhea, constipation Musculoskeletal: Reports: as per HPI, back pain Skin: Denies: rash Neurological: Denies: weakness, numbness Past Medical History Past Medical History: Chest Pain / Angina, Diabetes Mellitus, GERD/Reflux, Hypertension, Myocardial Infarction ([place]), Prostate Disorder Additional Past Medical History / Comment(s): enlarged prostate, chronic low back pain with degenerative disc disease, Chronic lymphocytic leukemia Last Myocardial Infarction Date:: 10/09/2015 History of Any Multi-Drug Resistant Organisms: None Reported Past Surgical History: Appendectomy, Heart Catheterization With Stent Additional Past Surgical History / Comment(s): heart cath with 2 stents to circ. Past Anesthesia/Blood Transfusion Reactions: No Reported Reaction Date of Last Stent Placement:: 10/09/15 Past Psychological History: No Psychological Hx Reported Smoking Status: Never smoker Past Alcohol Use History: None Reported Past Drug Use History: None Reported - Past Family History Father Family Medical History: Diabetes Mellitus Mother Family Medical History: Diabetes Mellitus General Exam Limitations: no limitations General appearance: alert, in no apparent distress Head exam: Present: atraumatic, normocephalic Eye exam: Present: normal appearance. Absent: scleral icterus, conjunctival injection ENT exam: Present: normal oropharynx Neck exam: Present: normal inspection, full ROM. Absent: tenderness, meningismus Respiratory exam: Present: normal lung sounds bilaterally. Absent: respiratory distress, wheezes, rales, rhonchi, stridor Cardiovascular Exam: Present: regular rate, normal rhythm, normal heart sounds. Absent: systolic murmur, diastolic murmur, rubs, gallop GI/Abdominal exam: Present: soft. Absent: distended, tenderness, guarding, rebound, rigid, mass Extremities exam: Present: normal inspection, normal capillary refill. Absent: pedal edema, calf tenderness Back exam: Present: normal inspection, paraspinal tenderness. Absent: CVA tenderness (R), CVA tenderness (L) Neurological exam: Present: alert, reflexes normal. Absent: motor sensory deficit Skin exam: Present: warm, dry, intact, normal color. Absent: rash Course Vital Signs 09/15/18 09/15/18 01:42 03:16 Pulse Rate 65 64 Respiratory 18 16 Rate Blood Pressure 139/83 133/76 O2 Sat by Pulse 99 98 Oximetry EKG Findings - EKG Results: EKG: interpreted by ERMD, WNL, sinus rhythm (Rate 69 bpm), normal axis, normal QRS, normal ST/T, no acute changes Medical Decision Making - Medical Decision Making Patient's 52-year-old man who states that the symptoms are consistent with some disc problems he has been having and that he is seeing someone regarding this but the symptoms had been worse tonight. Following medication here the patient states that he is feeling much better and would like to go home. We discussed appropriate follow-up as well as return parameters. - Lab Data Result diagrams: 09/15/18 00:05 09/15/18 00:05 Lab Results 09/15/18 09/15/18 09/15/18 Range/Units 00:05 00:05 00:05 WBC 5.8 (3.8-10.6) k/uL RBC 4.96 (4.30-5.90) m/uL Hgb 14.3 (13.0-17.5) gm/dL Hct 42.4 (39.0-53.0) % MCV 85.5 (80.0-100.0) fL MCH 28.9 (25.0-35.0) pg MCHC 33.8 (31.0-37.0) g/dL RDW 14.8 (11.5-15.5) % Plt Count 177 (150-450) k/uL Neutrophils % 51 % Lymphocytes % 34 % Monocytes % 10 % Eosinophils % 1 % Basophils % 1 % Neutrophils # 3.0 (1.3-7.7) k/uL Lymphocytes # 2.0 (1.0-4.8) k/uL Monocytes # 0.6 (0-1.0) k/uL Eosinophils # 0.1 (0-0.7) k/uL Basophils # 0.0 (0-0.2) k/uL Sodium 140 (137-145) mmol/L Potassium 4.5 (3.5-5.1) mmol/L Chloride 108 H (98-107) mmol/L Carbon Dioxide 23 (22-30) mmol/L Anion Gap 9 mmol/L BUN 14 (9-20) mg/dL Creatinine 0.63 L (0.66-1.25) mg/dL Est GFR (CKD-EPI)AfAm >90 (>60 ml/min/1.73 sqM) Est GFR (CKD-EPI)NonAf >90 (>60 ml/min/1.73 sqM) Glucose 108 H (74-99) mg/dL Calcium 9.6 (8.4-10.2) mg/dL Total Bilirubin 0.6 (0.2-1.3) mg/dL AST 27 (17-59) U/L ALT 46 (21-72) U/L Alkaline Phosphatase 59 (38-126) U/L Troponin I <0.012 (0.000-0.034) ng/mL Total Protein 7.2 (6.3-8.2) g/dL Albumin 4.3 (3.5-5.0) g/dL Disposition Clinical Impression: Back pain Disposition: HOME SELF-CARE Condition: Good Instructions: Chronic Back Pain (ED) Is patient prescribed a controlled substance at d/c from ED?: No Referrals: Vivian Hamlin MD [Primary Care Provider] - 1-2 days
[2018-09-15 01:08] LABS: Basophils % (A) 1 %; Eosinophils # (A) 0.1 k/uL (0-0.7); Eosinophils % (A) 1 %; HCT 42.4 % (39.0-53.0); HGB 14.3 gm/dL (13.0-17.5); Lymphocytes % (A) 34 %; MCH 28.9 pg (25.0-35.0); MCHC 33.8 g/dL (31.0-37.0); MCV 85.5 fL (80.0-100.0); Mean Platelet Volume 8.2; Monocytes # (A) 0.6 k/uL (0-1.0); Monocytes % (A) 10 %; Neutrophils % (A) 51 %; Platelet Count 177 k/uL (150-450); RBC 4.96 m/uL (4.30-5.90); RDW 14.8 % (11.5-15.5); WBC 5.8 k/uL (3.8-10.6)
[2018-09-15 01:11] LABS: ALT 46 U/L (21-72); AST 27 U/L (17-59); Albumin 4.3 g/dL (3.5-5.0); Alkaline Phosphatase 59 U/L (38-126); Anion Gap 9 mmol/L; Blood Urea Nitrogen 14 mg/dL (9-20); Calcium 9.6 mg/dL (8.4-10.2); Carbon Dioxide 23 mmol/L (22-30); Chloride 108 mmol/L (98-107); Glucose 108 mg/dL (74-99); Potassium 4.5 mmol/L (3.5-5.1); Sodium 140 mmol/L (137-145); Total Bilirubin 0.6 mg/dL (0.2-1.3); Total Protein 7.2 g/dL (6.3-8.2)
[2018-09-15] MEDS ORDERED: ORPHENADRINE 30 MG/ML 2 ML VIAL IM STA (01:39)
[2018-09-15] MEDS ORDERED: KETOROLAC 30 MG/ML 1 ML VIAL IVP STA (01:39)
[2018-09-15 03:17] VITALS: BP 133/76; PULSE 64; RESP 16
== END 2018-09-15 03:38 | disposition home or self-care (01) ==
LOC: EC 23:04
DX: M54.9 Dorsalgia, unspecified (principal); M54.2 Cervicalgia; R42 Dizziness and giddiness; E11.9 Type 2 diabetes mellitus without complications; K21.9 Gastro-esophageal reflux disease without esophagitis; I25.2 Old myocardial infarction; Z87.39 Personal history of other diseases of the musculoskeletal system and connective tissue; Z85.6 Personal history of leukemia; Z95.5 Presence of coronary angioplasty implant and graft; Z79.84 Long term (current) use of oral hypoglycemic drugs; Z79.1 Long term (current) use of non-steroidal anti-inflammatories (NSAID); Z79.899 Other long term (current) drug therapy
CPT/HCPCS: 36415; 93005; 80053; 84484; 85025; 99284; 96374; 96372; J2360; J1885

== ENCOUNTER 2018-10-24 11:37 | Emergency (ER) | payer OTHER ==
[2018-10-24 11:47] VITALS: TEMP 98.3
[2018-10-24] MEDS ORDERED: SODIUM CHLORIDE 0.9% 1,000 ML IV STA (11:56)
[2018-10-24] MEDS ORDERED: SODIUM CHLORIDE 0.9% 500 ML 500 ML IV STA (11:56)
[2018-10-24] MEDS ORDERED: KETOROLAC 30 MG/ML 1 ML VIAL IVP STA (11:57)
--- NOTE | 2018-10-24 11:59 | ED ---
General Adult HPI - General Chief complaint: Shortness of Breath Stated complaint: congestion; pain with breathing Time Seen by Provider: 10/24/18 11:50 Source: patient, RN notes reviewed, old records reviewed Mode of arrival: ambulatory Limitations: no limitations - History of Present Illness Initial comments: 52-year-old male presents return today with complaints of 1 day of total body aches, chest congestion and pain with breathing. Patient reports he has a previous cardiac history. Patient states that he has had multiple stents. He does complain of some right-sided chest pain. Patient states the pain is worse with taking deep breaths. Patient has brisk department tachycardic at 120 bpm. He is afebrile this time. His son is also being evaluated for upper respiratory congestion and fever. Patient has had a few episodes of vomiting. - Related Data Home Medications Medication Instructions Recorded Confirmed Diclofenac Sodium [Voltaren] 75 mg PO BID 10/17/17 10/24/18 Calcium Carb-Vit D 500Mg-200Un 1 tab PO DAILY 10/18/17 10/24/18 [Oscal 500+D] Glimepiride [Amaryl] 1 mg PO DAILY 09/14/18 10/24/18 Pantoprazole [Protonix] 40 mg PO DAILY 09/14/18 10/24/18 Gabapentin [Neurontin] 300 mg PO TID 10/24/18 10/24/18 Meloxicam [Mobic] 15 mg PO DAILY 10/24/18 10/24/18 Nilotinib HCl [Tasigna] 300 mg PO BID 10/24/18 10/24/18 Omeprazole [PriLOSEC] 20 mg PO BID 10/24/18 10/24/18 metFORMIN HCL ER [Glucophage Xr] 500 mg PO DAILY 10/24/18 10/24/18 Previous Rx's Medication Instructions Recorded Aspirin [Adult Low Dose Aspirin EC] 81 mg PO DAILY 90 Days #90 10/18/17 tablet. Atorvastatin [Lipitor] 20 mg PO DAILY #30 tab 10/18/17 Acetaminophen Tab [Tylenol Tab] 500 mg PO Q6H #20 tablet 10/24/18 Ibuprofen [Motrin] 600 mg PO Q6HR PRN #20 tab 10/24/18 Allergies Allergy/AdvReac Type Severity Reaction Status Date / Time No Known Allergies Allergy Verified 10/24/18 12:26 Review of Systems ROS Statement: Those systems with pertinent positive or pertinent negative responses have been documented in the HPI. ROS Other: All systems not noted in ROS Statement are negative. Past Medical History Past Medical History: Chest Pain / Angina, Diabetes Mellitus, GERD/Reflux, Hypertension, Myocardial Infarction ([place]), Prostate Disorder Additional Past Medical History / Comment(s): enlarged prostate, chronic low back pain with degenerative disc disease, Chronic lymphocytic leukemia Last Myocardial Infarction Date:: 10/09/2015 History of Any Multi-Drug Resistant Organisms: None Reported Past Surgical History: Appendectomy, Heart Catheterization With Stent Additional Past Surgical History / Comment(s): heart cath with 2 stents to circ. Past Anesthesia/Blood Transfusion Reactions: No Reported Reaction Date of Last Stent Placement:: 10/09/15 Past Psychological History: No Psychological Hx Reported Smoking Status: Never smoker Past Alcohol Use History: None Reported Past Drug Use History: None Reported - Past Family History Father Family Medical History: Diabetes Mellitus Mother Family Medical History: Diabetes Mellitus General Exam - General Exam Comments Initial Comments: 52-year-old male. Alert and oriented. No distress. Limitations: no limitations General appearance: alert, in no apparent distress Head exam: Present: atraumatic, normocephalic, normal inspection Eye exam: Present: normal appearance ENT exam: Present: normal exam, mucous membranes moist Neck exam: Present: normal inspection. Absent: tenderness, meningismus, lymphadenopathy Respiratory exam: Present: normal lung sounds bilaterally. Absent: respiratory distress, wheezes, rales, rhonchi, stridor Cardiovascular Exam: Present: regular rate, normal rhythm, normal heart sounds. Absent: systolic murmur, diastolic murmur, rubs, gallop, clicks GI/Abdominal exam: Present: soft, normal bowel sounds. Absent: distended, tenderness, guarding, rebound, rigid Extremities exam: Present: normal inspection, full ROM, normal capillary refill. Absent: tenderness, pedal edema, joint swelling, calf tenderness Back exam: Present: normal inspection Neurological exam: Present: alert, oriented X3, CN II-XII intact Psychiatric exam: Present: normal affect, normal mood Skin exam: Present: warm, dry, intact, normal color. Absent: rash Course Vital Signs 10/24/18 10/24/18 10/24/18 11:44 12:26 12:30 Temperature 98.3 F Pulse Rate 124 H 86 88 Respiratory 22 18 16 Rate Blood Pressure 175/77 134/76 134/76 O2 Sat by Pulse 99 99 92 L Oximetry 10/24/18 10/24/18 13:00 13:30 Temperature Pulse Rate 95 79 Respiratory 20 18 Rate Blood Pressure 128/82 133/85 O2 Sat by Pulse 94 L 99 Oximetry Medical Decision Making - Medical Decision Making 52 year old male with body aches and chest congestion. Labs show mild leukocytosis. Patient has normak EKG and normal vitals signs after resting in bed. Patient Troponin, flu, and CXR are normal. Discussed with bodyaches and son her with similiar complaints it is likely viral syndrome. Discussed PCP follow up. - Lab Data Result diagrams: 10/24/18 12:18 10/24/18 12:18 Lab Results 10/24/18 10/24/18 10/24/18 Range/Units 12:18 12:18 12:18 WBC 13.7 H (3.8-10.6) k/uL RBC 4.74 (4.30-5.90) m/uL Hgb 14.1 (13.0-17.5) gm/dL Hct 41.7 (39.0-53.0) % MCV 88.0 (80.0-100.0) fL MCH 29.8 (25.0-35.0) pg MCHC 33.9 (31.0-37.0) g/dL RDW 13.9 (11.5-15.5) % Plt Count 216 (150-450) k/uL Neutrophils % 84 % Lymphocytes % 9 % Monocytes % 5 % Eosinophils % 1 % Basophils % 0 % Neutrophils # 11.5 H (1.3-7.7) k/uL Lymphocytes # 1.2 (1.0-4.8) k/uL Monocytes # 0.7 (0-1.0) k/uL Eosinophils # 0.1 (0-0.7) k/uL Basophils # 0.0 (0-0.2) k/uL PT (9.0-12.0) sec INR (<1.2) APTT (22.0-30.0) sec Sodium (137-145) mmol/L Potassium (3.5-5.1) mmol/L Chloride (98-107) mmol/L Carbon Dioxide (22-30) mmol/L Anion Gap mmol/L BUN (9-20) mg/dL Creatinine (0.66-1.25) mg/dL Est GFR (CKD-EPI)AfAm (>60 ml/min/1.73 sqM) Est GFR (CKD-EPI)NonAf (>60 ml/min/1.73 sqM) Glucose (74-99) mg/dL Calcium (8.4-10.2) mg/dL Total Bilirubin (0.2-1.3) mg/dL AST (17-59) U/L ALT (21-72) U/L Alkaline Phosphatase (38-126) U/L Total Creatine Kinase 95 (55-170) U/L CK-MB (CK-2) 1.3 (0.0-2.4) ng/mL CK-MB (CK-2) Rel Index 1.4 Troponin I <0.012 (0.000-0.034) ng/mL Total Protein (6.3-8.2) g/dL Albumin (3.5-5.0) g/dL Influenza Type A RNA Not Detected (Not Detectd) Influenza Type B (PCR) Not Detected (Not Detectd) 10/24/18 10/24/18 Range/Units 12:18 12:18 WBC (3.8-10.6) k/uL RBC (4.30-5.90) m/uL Hgb (13.0-17.5) gm/dL Hct (39.0-53.0) % MCV (80.0-100.0) fL MCH (25.0-35.0) pg MCHC (31.0-37.0) g/dL RDW (11.5-15.5) % Plt Count (150-450) k/uL Neutrophils % % Lymphocytes % % Monocytes % % Eosinophils % % Basophils % % Neutrophils # (1.3-7.7) k/uL Lymphocytes # (1.0-4.8) k/uL Monocytes # (0-1.0) k/uL Eosinophils # (0-0.7) k/uL Basophils # (0-0.2) k/uL PT 10.9 (9.0-12.0) sec INR 1.0 (<1.2) APTT 23.7 (22.0-30.0) sec Sodium 136 L (137-145) mmol/L Potassium 5.0 (3.5-5.1) mmol/L Chloride 105 (98-107) mmol/L Carbon Dioxide 22 (22-30) mmol/L Anion Gap 9 mmol/L BUN 27 H (9-20) mg/dL Creatinine 0.77 (0.66-1.25) mg/dL Est GFR (CKD-EPI)AfAm >90 (>60 ml/min/1.73 sqM) Est GFR (CKD-EPI)NonAf >90 (>60 ml/min/1.73 sqM) Glucose 183 H (74-99) mg/dL Calcium 9.8 (8.4-10.2) mg/dL Total Bilirubin 0.9 (0.2-1.3) mg/dL AST 38 (17-59) U/L ALT 68 (21-72) U/L Alkaline Phosphatase 59 (38-126) U/L Total Creatine Kinase (55-170) U/L CK-MB (CK-2) (0.0-2.4) ng/mL CK-MB (CK-2) Rel Index Troponin I (0.000-0.034) ng/mL Total Protein 7.3 (6.3-8.2) g/dL Albumin 4.4 (3.5-5.0) g/dL Influenza Type A RNA (Not Detectd) Influenza Type B (PCR) (Not Detectd) 10/24/18 12:31 EKG performed at 1223 shows sinus at a normal EKG. Ventricular rate of 83 bpm. OR interval is 142 ms. QRS duration is 84 ms. QT QTc is 364/427 ms. No evidence of ST elevation or T-wave inversion - Radiology Data Radiology results: report reviewed No acute crit department process Disposition Clinical Impression: Viral syndrome Disposition: ADMITTED IP TO THIS HOSP Condition: Stable Instructions: Viral Syndrome (ED) Additional Instructions: Patient has a follow-up with primary care physician within the next 1-2 days. Take the meds as prescribed. Return to emergency department if any alarming signs or symptoms occur. Prescriptions: Acetaminophen Tab [Tylenol Tab] 500 mg PO Q6H #20 tablet Ibuprofen [Motrin] 600 mg PO Q6HR PRN #20 tab PRN Reason: Pain Is patient prescribed a controlled substance at d/c from ED?: No Referrals: Vivian Hamlin MD [Primary Care Provider] - 1-2 days Time of Disposition: 14:08
[2018-10-24 12:40] LABS: Basophils % (A) 0 %; Eosinophils # (A) 0.1 k/uL (0-0.7); Eosinophils % (A) 1 %; HCT 41.7 % (39.0-53.0); HGB 14.1 gm/dL (13.0-17.5); Lymphocytes # (A) 1.2 k/uL (1.0-4.8); Lymphocytes % (A) 9 %; MCH 29.8 pg (25.0-35.0); MCHC 33.9 g/dL (31.0-37.0); Mean Platelet Volume 8.9; Monocytes # (A) 0.7 k/uL (0-1.0); Monocytes % (A) 5 %; Neutrophils # (A) 11.5 k/uL (1.3-7.7); Neutrophils % (A) 84 %; Platelet Count 216 k/uL (150-450); RBC 4.74 m/uL (4.30-5.90); RDW 13.9 % (11.5-15.5); WBC 13.7 k/uL (3.8-10.6)
[2018-10-24 12:48] LABS: ALT 68 U/L (21-72); AST 38 U/L (17-59); Albumin 4.4 g/dL (3.5-5.0); Alkaline Phosphatase 59 U/L (38-126); Anion Gap 9 mmol/L; Blood Urea Nitrogen 27 mg/dL (9-20); Calcium 9.8 mg/dL (8.4-10.2); Carbon Dioxide 22 mmol/L (22-30); Chloride 105 mmol/L (98-107); Glucose 183 mg/dL (74-99); Sodium 136 mmol/L (137-145); Total Bilirubin 0.9 mg/dL (0.2-1.3); Total Protein 7.3 g/dL (6.3-8.2)
[2018-10-24 12:50] LABS: Partial Thromboplastin Time 23.7 sec (22.0-30.0); Prothrombin Time 10.9 sec (9.0-12.0)
[2018-10-24 13:13] LABS: Creatine Kinase 95 U/L (55-170)
[2018-10-24 13:24] LABS: Creatine Kinase MB 1.3 ng/mL (0.0-2.4); Troponin I <0.012 ng/mL (0.000-0.034)
--- NOTE | 2018-10-24 13:27 | XR ---
EXAMINATION TYPE: XR chest 2V DATE OF EXAM: 10/24/2018 COMPARISON: Prior chest 07/10/2018 HISTORY: Difficulty breathing TECHNIQUE: Frontal and lateral views of the chest are obtained. FINDINGS: There is no focal air space opacity, pleural effusion, or pneumothorax seen. The cardiac silhouette size is within normal limits. The osseous structures are intact. Right hemidiaphragm is again elevated. There are overlying cardiac leads. IMPRESSION: No acute cardiopulmonary process.
[2018-10-24 13:35] VITALS: BP 133/85; PULSE 79; RESP 18
== END 2018-10-24 14:25 | disposition other institution (70) ==
LOC: EC 11:37
DX: B34.9 Viral infection, unspecified (principal); C91.10 Chronic lymphocytic leukemia of B-cell type not having achieved remission; E11.9 Type 2 diabetes mellitus without complications; I10 Essential (primary) hypertension; K21.9 Gastro-esophageal reflux disease without esophagitis; I25.2 Old myocardial infarction; G89.29 Other chronic pain; Z79.1 Long term (current) use of non-steroidal anti-inflammatories (NSAID); Z79.84 Long term (current) use of oral hypoglycemic drugs; Z79.899 Other long term (current) drug therapy; Z95.5 Presence of coronary angioplasty implant and graft
CPT/HCPCS: 36415; 93005; 80053; 82550; 82553; 84484; 85025; 85610; 85730; 87502; 71046; 99285; 96374; 96361 ×2; J1885

== ENCOUNTER 2018-12-23 15:25 | Emergency (ER) | payer OTHER ==
[2018-12-23] MEDS ORDERED: KETOROLAC 60 MG/2 ML VIAL IM STA (16:51)
[2018-12-23] MEDS ORDERED: Acetaminophen-Codeine 300-30mg TAB PO STA (16:51)
[2018-12-23] MEDS ORDERED: DEXAMETHASONE 4 MG TAB PO STA (16:51)
[2018-12-23] MEDS ORDERED: ACET/COD 300 MG/30 MG STARTER PACK 6 TAB BTL PO STA (16:51)
--- NOTE | 2018-12-23 16:53 | ED ---
Back Pain HPI - General Chief Complaint: Back Pain/Injury Stated Complaint: Back Pain, Dizzy, Leg Pain Time Seen by Provider: 12/23/18 16:15 Source: patient, RN notes reviewed, old records reviewed Limitations: no limitations - History of Present Illness Initial Comments: This is a 53-year-old male to the ER for evaluation. Patient does say for evaluation of back pain neck pain mid back pain. Patient states he has history of chronic pain and this is a worse exacerbation of his chronic pain. Denies any fevers. No other specific complaints. Patient is not on any current medication - Related Data Home Medications Medication Instructions Recorded Confirmed Gabapentin [Neurontin] 300 mg PO TID 10/24/18 12/23/18 Omeprazole [PriLOSEC] 20 mg PO BID 10/24/18 12/23/18 Previous Rx's Medication Instructions Recorded Aspirin [Adult Low Dose Aspirin EC] 81 mg PO DAILY 90 Days #90 10/18/17 tablet. Atorvastatin [Lipitor] 20 mg PO DAILY #30 tab 10/18/17 Naproxen [Naprosyn] 500 mg PO Q12HR PRN #30 tab 12/23/18 predniSONE 50 mg PO DAILY #5 tab 12/23/18 Allergies Allergy/AdvReac Type Severity Reaction Status Date / Time No Known Allergies Allergy Verified 12/23/18 16:55 Review of Systems ROS Statement: Those systems with pertinent positive or pertinent negative responses have been documented in the HPI. ROS Other: All systems not noted in ROS Statement are negative. Past Medical History Past Medical History: Chest Pain / Angina, Diabetes Mellitus, GERD/Reflux, Hypertension, Myocardial Infarction ([place]), Prostate Disorder Additional Past Medical History / Comment(s): enlarged prostate, chronic low back pain with degenerative disc disease, Chronic lymphocytic leukemia Last Myocardial Infarction Date:: 10/09/2015 History of Any Multi-Drug Resistant Organisms: None Reported Past Surgical History: Appendectomy, Heart Catheterization With Stent Additional Past Surgical History / Comment(s): heart cath with 2 stents to circ. Past Anesthesia/Blood Transfusion Reactions: No Reported Reaction Date of Last Stent Placement:: 10/09/15 Past Psychological History: No Psychological Hx Reported Smoking Status: Never smoker Past Alcohol Use History: None Reported Past Drug Use History: None Reported - Past Family History Father Family Medical History: Diabetes Mellitus Mother Family Medical History: Diabetes Mellitus General Exam Limitations: no limitations General appearance: alert, in no apparent distress Head exam: Present: atraumatic, normocephalic, normal inspection Eye exam: Present: normal appearance, PERRL, EOMI. Absent: scleral icterus, conjunctival injection, periorbital swelling ENT exam: Present: normal exam, mucous membranes moist Neck exam: Present: normal inspection. Absent: tenderness, meningismus, lymphadenopathy Respiratory exam: Present: normal lung sounds bilaterally. Absent: respiratory distress, wheezes, rales, rhonchi, stridor Cardiovascular Exam: Present: regular rate, normal rhythm, normal heart sounds. Absent: systolic murmur, diastolic murmur, rubs, gallop, clicks GI/Abdominal exam: Present: soft, normal bowel sounds. Absent: distended, tenderness, guarding, rebound, rigid Extremities exam: Present: normal inspection, full ROM, normal capillary refill. Absent: tenderness, pedal edema, joint swelling, calf tenderness Back exam: Present: normal inspection Neurological exam: Present: alert, oriented X3, CN II-XII intact Psychiatric exam: Present: normal affect, normal mood Skin exam: Present: warm, dry, intact, normal color. Absent: rash Course Vital Signs 12/23/18 12/23/18 15:55 17:33 Temperature 97.5 F L 97.8 F Pulse Rate 80 81 Respiratory 18 16 Rate Blood Pressure 142/78 140/80 O2 Sat by Pulse 99 98 Oximetry - Reevaluation(s) Reevaluation #1: Medical record is reviewed Multiple ER visits for similar complaints Patient's symptoms much improved and in no distress Medical Decision Making - Medical Decision Making 50 female the ER for evaluation, not feeling well. Patient states he's is a worsening pain of his normal pain. Patient states he does feel improved and can be discharged Disposition Clinical Impression: Strain of lumbar region, Mid back pain, Cervical pain Disposition: HOME SELF-CARE Condition: Good Instructions (If sedation given, give patient instructions): Acute Low Back Pain (ED), Chronic Back Pain (ED), Acute Neck Pain (ED), Chronic Neck Pain ([place]) Prescriptions: Naproxen [Naprosyn] 500 mg PO Q12HR PRN #30 tab PRN Reason: Pain predniSONE 50 mg PO DAILY #5 tab Is patient prescribed a controlled substance at d/c from ED?: No Referrals: Vivian Hamlin MD [Primary Care Provider] - 1-2 days
[2018-12-23 17:34] VITALS: BP 140/80; PULSE 81; RESP 16; TEMP 97.8
== END 2018-12-23 17:33 | disposition home or self-care (01) ==
LOC: EC 15:25
DX: S39.012A Strain of muscle, fascia and tendon of lower back, initial encounter (principal); M54.6 Pain in thoracic spine; M54.2 Cervicalgia; R42 Dizziness and giddiness; K21.9 Gastro-esophageal reflux disease without esophagitis; Z85.6 Personal history of leukemia; Z90.49 Acquired absence of other specified parts of digestive tract; Z95.5 Presence of coronary angioplasty implant and graft; Z98.890 Other specified postprocedural states; Z79.899 Other long term (current) drug therapy; X58.XXXA Exposure to other specified factors, initial encounter
CPT/HCPCS: 99284; 96372; J8540; J1885

== ENCOUNTER 2019-02-26 23:41 | Emergency (ER) | payer OTHER ==
[2019-02-26 23:48] VITALS: BP 125/68; PULSE 82; RESP 18; TEMP 97.5
[2019-02-27] MEDS ORDERED: SODIUM CHLORIDE 0.9% 500 ML 500 ML IV STA (00:12)
[2019-02-27 00:58] LABS: Basophils % (A) 0 %; Eosinophils # (A) 0.1 k/uL (0-0.7); Eosinophils % (A) 1 %; HCT 40.4 % (39.0-53.0); HGB 13.8 gm/dL (13.0-17.5); Lymphocytes # (A) 1.7 k/uL (1.0-4.8); Lymphocytes % (A) 30 %; MCHC 34.1 g/dL (31.0-37.0); Mean Platelet Volume 8.4; Monocytes # (A) 0.4 k/uL (0-1.0); Monocytes % (A) 7 %; Neutrophils # (A) 3.4 k/uL (1.3-7.7); Neutrophils % (A) 59 %; Platelet Count 191 k/uL (150-450); RBC 4.75 m/uL (4.30-5.90); RDW 14.3 % (11.5-15.5); WBC 5.7 k/uL (3.8-10.6)
[2019-02-27 00:59] LABS: Appearance,Urine Clear (Clear); Bilirubin,Urine Negative (Negative); Blood,Urine Negative (Negative); Color,Urine Yellow; Glucose,Urine (UA) 4+ (Negative); Ketones,Urine Negative (Negative); Leukocyte Esterase,Urine Negative (Negative); Nitrite,Urine Negative (Negative); Protein,Urine Negative (Negative); Specific Gravity,Urine 1.033 (1.001-1.035); Urobilinogen,Urine <2.0 mg/dL (<2.0)
[2019-02-27 01:13] LABS: D-Dimer 0.31 mg/L FEU (<0.60); INR 0.9 (<1.2); Partial Thromboplastin Time 24.7 sec (22.0-30.0); Prothrombin Time 10.2 sec (9.0-12.0)
--- NOTE | 2019-02-27 01:15 | XR ---
EXAM: XR Chest, 2 Views CLINICAL HISTORY: ITS.REASON XR Reason: Chest Pain TECHNIQUE: Frontal and lateral views of the chest. COMPARISON: Prior from 10/24/18 FINDINGS: Lungs: Unremarkable. No consolidation. Pleural space: Unremarkable. No pneumothorax. Heart: Unremarkable. No cardiomegaly. Mediastinum: Unremarkable. Bones/joints: Unremarkable. Upper abdomen: Stable elevated right hemidiaphragm. IMPRESSION: No acute findings.
[2019-02-27 01:31] LABS: ALT 22 U/L (21-72); AST 17 U/L (17-59); Albumin 4.2 g/dL (3.5-5.0); Alkaline Phosphatase 62 U/L (38-126); Anion Gap 7 mmol/L; Blood Urea Nitrogen 13 mg/dL (9-20); Calcium 9.4 mg/dL (8.4-10.2); Carbon Dioxide 24 mmol/L (22-30); Chloride 107 mmol/L (98-107); Glucose 200 mg/dL (74-99); Magnesium 1.7 mg/dL (1.6-2.3); Sodium 138 mmol/L (137-145); Total Bilirubin 0.5 mg/dL (0.2-1.3); Total Protein 6.8 g/dL (6.3-8.2)
--- NOTE | 2019-02-27 02:06 | ED ---
General Adult HPI - General Chief complaint: Weakness Stated complaint: Back/Neck Pain Time Seen by Provider: 02/26/19 23:57 Source: patient, RN notes reviewed, old records reviewed Mode of arrival: wheelchair Limitations: no limitations - History of Present Illness Initial comments: 53-year-old male patient passed no history of hypertension, coronary artery disease, type 2 diabetes presents to ED with chief complaint of myalgias, chronic lumbar back pain. Patient also reports approximately 2 days of shortness of breath. Patient states that the back pain and myalgias that he is experiencing are baseline for him. Patient denies any new or concerning symptoms. Patient hasn't loss of bowel or bladder control, saddle anesthesia. Patient describes shortness breath that he is experiencing as mild. Denies any chest pain. States that he has had some minor cough, denies any fevers or chills, nausea vomiting diarrhea, abdominal pain. Systemic: Pt denies fatigue, myalgia, fever/chills, rash. Pt denies weakness, night sweats, weight loss. Neuro: Pt denies headache, visual disturbances, syncope or pre-syncope. HEENT: Pt denies ocular discharge or irritation, otalgia, rhinorrhea, pharyngitis or notable lymphadenopathy. Cardiopulmonary: Pt denies SOB, heart palpitations, dyspnea on exertion. Abdominal/GI: Pt denies abdominal pain, n/v/d. : Pt denies dysuria, burning w/ urination, frequency/urgency. Denies new onset urinary or bowel incontinence. MSK: Pt denies myalgia, loss of strength or function in extremities. Neuro: Pt denies new onset weakness, paresthesias. - Related Data Home Medications Medication Instructions Recorded Confirmed RX: Gabapentin [Neurontin] 300 mg PO TID 10/24/18 12/23/18 RX: Omeprazole [PriLOSEC] 20 mg PO BID 10/24/18 12/23/18 Previous Rx's Medication Instructions Recorded Aspirin [Adult Low Dose Aspirin EC] 81 mg PO DAILY 90 Days #90 10/18/17 tablet. RX: Atorvastatin [Lipitor] 20 mg PO DAILY #30 tab 10/18/17 RX: Naproxen [Naprosyn] 500 mg PO Q12HR PRN #30 tab 12/23/18 RX: predniSONE 50 mg PO DAILY #5 tab 12/23/18 Allergies Allergy/AdvReac Type Severity Reaction Status Date / Time No Known Allergies Allergy Verified 12/23/18 16:55 Review of Systems ROS Statement: Those systems with pertinent positive or pertinent negative responses have been documented in the HPI. ROS Other: All systems not noted in ROS Statement are negative. Past Medical History Past Medical History: Chest Pain / Angina, Diabetes Mellitus, GERD/Reflux, Hypertension, Myocardial Infarction ([place]), Prostate Disorder Additional Past Medical History / Comment(s): enlarged prostate, chronic low back pain with degenerative disc disease, Chronic lymphocytic leukemia Last Myocardial Infarction Date:: 10/09/2015 History of Any Multi-Drug Resistant Organisms: None Reported Past Surgical History: Appendectomy, Heart Catheterization With Stent Additional Past Surgical History / Comment(s): heart cath with 2 stents to circ. Past Anesthesia/Blood Transfusion Reactions: No Reported Reaction Date of Last Stent Placement:: 10/09/15 Past Psychological History: No Psychological Hx Reported Smoking Status: Never smoker Past Alcohol Use History: None Reported Past Drug Use History: None Reported - Past Family History Father Family Medical History: Diabetes Mellitus Mother Family Medical History: Diabetes Mellitus General Exam - General Exam Comments Initial Comments: Constitutional: NAD, AOX3, Pt has pleasant affect. HEENT: NC/AT, trachea midline, neck supple, no lymphadenopathy. Posterior pharynx non erythematous, without exudates. External ears appear normal, without discharge. Mucous membranes moist. Eyes PERRLA, EOM intact. There is no scleral icterus. No pallor noted. Cardiopulmonary: RRR, no murmurs, rubs or gallops, no JVD noted. Lungs CTAB in anterior and posterior yun. No peripheral edema. Abdominal exam: Abdomen soft and non-distended. Abdomen non-tender to palpation in all 4 quadrants. Bowel sounds active in LLQ. No hepatosplenomegaly. No ecchymosis Neuro: CN II-XII grossly intact. No nuchal rigidity. MSK: No cervical, thoracic, lumbar spinal tenderness. 5/5 strength psoas and quadriceps muscles. No posterior calf tenderness bilaterally, homans sign negative bilaterally. Posterior tibialis and radial pulse +2 bilaterally. Sensation intact in upper and lower extremities. Full active ROM in upper and lo wer extremities, 5/5 stregnth. Limitations: no limitations Course Vital Signs 02/26/19 23:43 Temperature 97.5 F L Pulse Rate 82 Respiratory 18 Rate Blood Pressure 125/68 O2 Sat by Pulse 98 Oximetry Medical Decision Making - Medical Decision Making 53-year-old male patient passed no history of hypertension, coronary artery disease, type 2 diabetes presents to ED with chief complaint of myalgias, chronic lumbar back pain. Patient also reports approximately 2 days of shortness of breath. Patient states that the back pain and myalgias that he is experiencing are baseline for him. Patient denies any new or concerning symptoms. Patient hasn't loss of bowel or bladder control, saddle anesthesia. Patient describes shortness breath that he is experiencing as mild. Denies any chest pain. States that he has had some minor cough, denies any fevers or chills, nausea vomiting diarrhea, abdominal pain. Patient vital signs stable, afebrile. Physical exam did not display acute pathology. Laboratory investigations revealed nonpresence of CBC, CMP. Patient has mildly elevated glucose of 200. Patient is known diabetic. Coagulation studies within normal limits. D-dimer negative. Troponin negative. BNP 28. UA displayed post 4 glucose. EKG not concerning for acute ischemia. Chest x-ray revealed no acute process. Patient will discharge, follow up with primary care provider tomorrow. Patient return to ER if condition worsens in any way. Case discussed with Dr. Razo. - Lab Data Result diagrams: 02/27/19 00:45 02/27/19 00:45 Lab Results 02/27/19 02/27/19 02/27/19 Range/Units 00:45 00:45 00:45 WBC 5.7 (3.8-10.6) k/uL RBC 4.75 (4.30-5.90) m/uL Hgb 13.8 (13.0-17.5) gm/dL Hct 40.4 (39.0-53.0) % MCV 85.0 (80.0-100.0) fL MCH 29.0 (25.0-35.0) pg MCHC 34.1 (31.0-37.0) g/dL RDW 14.3 (11.5-15.5) % Plt Count 191 (150-450) k/uL Neutrophils % 59 % Lymphocytes % 30 % Monocytes % 7 % Eosinophils % 1 % Basophils % 0 % Neutrophils # 3.4 (1.3-7.7) k/uL Lymphocytes # 1.7 (1.0-4.8) k/uL Monocytes # 0.4 (0-1.0) k/uL Eosinophils # 0.1 (0-0.7) k/uL Basophils # 0.0 (0-0.2) k/uL PT 10.2 (9.0-12.0) sec INR 0.9 (<1.2) APTT 24.7 (22.0-30.0) sec D-Dimer 0.31 (<0.60) mg/L FEU Sodium 138 (137-145) mmol/L Potassium 4.0 (3.5-5.1) mmol/L Chloride 107 (98-107) mmol/L Carbon Dioxide 24 (22-30) mmol/L Anion Gap 7 mmol/L BUN 13 (9-20) mg/dL Creatinine 0.69 (0.66-1.25) mg/dL Est GFR (CKD-EPI)AfAm >90 (>60 ml/min/1.73 sqM) Est GFR (CKD-EPI)NonAf >90 (>60 ml/min/1.73 sqM) Glucose 200 H (74-99) mg/dL Calcium 9.4 (8.4-10.2) mg/dL Magnesium 1.7 (1.6-2.3) mg/dL Total Bilirubin 0.5 (0.2-1.3) mg/dL AST 17 (17-59) U/L ALT 22 (21-72) U/L Alkaline Phosphatase 62 (38-126) U/L Troponin I (0.000-0.034) ng/mL NT-Pro-B Natriuret Pep pg/mL Total Protein 6.8 (6.3-8.2) g/dL Albumin 4.2 (3.5-5.0) g/dL Urine Color Urine Appearance (Clear) Urine pH (5.0-8.0) Ur Specific Jeannette (1.001-1.035) Urine Protein (Negative) Urine Glucose (UA) (Negative) Urine Ketones (Negative) Urine Blood (Negative) Urine Nitrite (Negative) Urine Bilirubin (Negative) Urine Urobilinogen (<2.0) mg/dL Ur Leukocyte Esterase (Negative) 02/27/19 02/27/19 02/27/19 Range/Units 00:45 00:45 00:45 WBC (3.8-10.6) k/uL RBC (4.30-5.90) m/uL Hgb (13.0-17.5) gm/dL Hct (39.0-53.0) % MCV (80.0-100.0) fL MCH (25.0-35.0) pg MCHC (31.0-37.0) g/dL RDW (11.5-15.5) % Plt Count (150-450) k/uL Neutrophils % % Lymphocytes % % Monocytes % % Eosinophils % % Basophils % % Neutrophils # (1.3-7.7) k/uL Lymphocytes # (1.0-4.8) k/uL Monocytes # (0-1.0) k/uL Eosinophils # (0-0.7) k/uL Basophils # (0-0.2) k/uL PT (9.0-12.0) sec INR (<1.2) APTT (22.0-30.0) sec D-Dimer (<0.60) mg/L FEU Sodium (137-145) mmol/L Potassium (3.5-5.1) mmol/L Chloride (98-107) mmol/L Carbon Dioxide (22-30) mmol/L Anion Gap mmol/L BUN (9-20) mg/dL Creatinine (0.66-1.25) mg/dL Est GFR (CKD-EPI)AfAm (>60 ml/min/1.73 sqM) Est GFR (CKD-EPI)NonAf (>60 ml/min/1.73 sqM) Glucose (74-99) mg/dL Calcium (8.4-10.2) mg/dL Magnesium (1.6-2.3) mg/dL Total Bilirubin (0.2-1.3) mg/dL AST (17-59) U/L ALT (21-72) U/L Alkaline Phosphatase (38-126) U/L Troponin I <0.012 (0.000-0.034) ng/mL NT-Pro-B Natriuret Pep 28 pg/mL Total Protein (6.3-8.2) g/dL Albumin (3.5-5.0) g/dL Urine Color Yellow Urine Appearance Clear (Clear) Urine pH 7.0 (5.0-8.0) Ur Specific Jeannette 1.033 (1.001-1.035) Urine Protein Negative (Negative) Urine Glucose (UA) 4+ H (Negative) Urine Ketones Negative (Negative) Urine Blood Negative (Negative) Urine Nitrite Negative (Negative) Urine Bilirubin Negative (Negative) Urine Urobilinogen <2.0 (<2.0) mg/dL Ur Leukocyte Esterase Negative (Negative) - EKG Data -: EKG Interpreted by Me (and dr razo) EKG Comments: Ventricular rate 60, OR interval 134, QRS 84, QT/QTC 356/70. Normal sinus rhythm, normal EKG, no concern for acute ischemia. Disposition Clinical Impression: Myalgia Disposition: HOME SELF-CARE Condition: Stable Instructions (If sedation given, give patient instructions): Musculoskeletal Pain (ED) Additional Instructions: Patient to adhere to previously discussed treatment plan and will take medication(s) as directed. Patient to follow up with PCP in 1-2 days. Patient to return to ED if symptoms do not improve. Follow-up with primary care provider tomorrow. Return to ER if condition worsens in any way. Is patient prescribed a controlled substance at d/c from ED?: No Referrals: Vivian Hamlin MD [Primary Care Provider] - 1-2 days
== END 2019-02-27 02:29 | disposition home or self-care (01) ==
LOC: EC 23:41
DX: M79.10 Myalgia, unspecified site (principal); G89.29 Other chronic pain; M54.5 Low back pain; R06.02 Shortness of breath; R05 Cough; E11.9 Type 2 diabetes mellitus without complications; K21.9 Gastro-esophageal reflux disease without esophagitis; I25.119 Atherosclerotic heart disease of native coronary artery with unspecified angina pectoris; I25.2 Old myocardial infarction; Z79.899 Other long term (current) drug therapy; Z85.6 Personal history of leukemia; Z95.5 Presence of coronary angioplasty implant and graft; Z83.3 Family history of diabetes mellitus
CPT/HCPCS: 36415; 71046; 80053; 81003; 83735; 83880; 84484; 85025; 85379; 85610; 85730; 93005; 96360; 99285

== ENCOUNTER 2019-06-11 14:02 | Emergency (ER) | payer OTHER ==
[2019-06-11 14:13] VITALS: BP 166/68; PULSE 87; RESP 18; TEMP 98.3
[2019-06-11] MEDS ORDERED: KETOROLAC 30 MG/ML 1 ML VIAL IM STA (14:24)
[2019-06-11] MEDS ORDERED: ACET/COD 300 MG/30 MG STARTER PACK 6 TAB BTL PO STA (14:25)
[2019-06-11] MEDS ORDERED: CYCLOBENZAPRINE 10MG STARTER 3 TAB BTL PO STA (14:25)
--- NOTE | 2019-06-11 14:27 | ED ---
Back Pain HPI - General Chief Complaint: Back Pain/Injury Stated Complaint: back pain Time Seen by Provider: 06/11/19 14:06 Source: patient Limitations: no limitations - History of Present Illness Initial Comments: 53-year-old male patient with past medical history significant for chronic back pain for which she is on disability presents to the emergency department today for evaluation of increased to his low back pain. Patient states the pain is radiating down both legs and up his back. Patient states that he has had increase in symptoms for the last 3 days. Denies any numbness or tingling to his legs. Denies any saddle anesthesia or loss of bowel or bladder control. Patient is able to ambulate. Denies any fever, chills, nausea, vomiting, chest pain, shortness of breath. Denies any injury to the back. Denies taking any medication for his symptoms. States he presented here because his doctor's office was closed. Patient denies any recent rash, diarrhea, constipation, dizziness, weakness, hematuria, dysuria, urinary urgency, urinary frequency, headache, visual changes, or any other complaints. - Related Data Home Medications Medication Instructions Recorded Confirmed Gabapentin [Neurontin] 300 mg PO TID 10/24/18 12/23/18 Omeprazole [PriLOSEC] 20 mg PO BID 10/24/18 12/23/18 Previous Rx's Medication Instructions Recorded Aspirin [Adult Low Dose Aspirin EC] 81 mg PO DAILY 90 Days #90 10/18/17 tablet. Atorvastatin [Lipitor] 20 mg PO DAILY #30 tab 10/18/17 Naproxen [Naprosyn] 500 mg PO Q12HR PRN #30 tab 12/23/18 predniSONE 50 mg PO DAILY #5 tab 12/23/18 Cyclobenzaprine [Flexeril] 10 mg PO TID #15 tab 06/11/19 Ibuprofen [Motrin] 600 mg PO Q8HR PRN #30 tab 06/11/19 Allergies Allergy/AdvReac Type Severity Reaction Status Date / Time No Known Allergies Allergy Verified 12/23/18 16:55 Review of Systems ROS Statement: Those systems with pertinent positive or pertinent negative responses have been documented in the HPI. ROS Other: All systems not noted in ROS Statement are negative. Past Medical History Past Medical History: Chest Pain / Angina, Diabetes Mellitus, GERD/Reflux, Hypertension, Myocardial Infarction ([place]), Prostate Disorder Additional Past Medical History / Comment(s): enlarged prostate, chronic low back pain with degenerative disc disease, Chronic lymphocytic leukemia Last Myocardial Infarction Date:: 10/09/2015 History of Any Multi-Drug Resistant Organisms: None Reported Past Surgical History: Appendectomy, Heart Catheterization With Stent Additional Past Surgical History / Comment(s): heart cath with 2 stents to circ. Past Anesthesia/Blood Transfusion Reactions: No Reported Reaction Date of Last Stent Placement:: 10/09/15 Past Psychological History: No Psychological Hx Reported Smoking Status: Never smoker Past Alcohol Use History: None Reported Past Drug Use History: None Reported - Past Family History Father Family Medical History: Diabetes Mellitus Mother Family Medical History: Diabetes Mellitus General Exam Limitations: no limitations General appearance: alert, in no apparent distress, other (This is a well- developed, well-nourished adult male patient in no acute distress. Vital signs upon presentation are temperature 98.3F, pulse 87, respirations 18, blood pressure 166/68, pulse ox 97% on room air.) Eye exam: Present: normal appearance, PERRL, EOMI. Absent: scleral icterus, conjunctival injection, periorbital swelling ENT exam: Present: normal exam, normal oropharynx, mucous membranes moist Respiratory exam: Present: normal lung sounds bilaterally. Absent: respiratory distress, wheezes, rales, rhonchi, stridor Cardiovascular Exam: Present: regular rate, normal rhythm, normal heart sounds. Absent: systolic murmur, diastolic murmur, rubs, gallop, clicks GI/Abdominal exam: Present: soft, normal bowel sounds. Absent: distended, tenderness, guarding, rebound, rigid Extremities exam: Present: normal inspection, full ROM, normal capillary refill, other (Skin to the lower extremities is pink, warm, and dry. Cap refills less than 3 seconds. Pedal and posttibial pulses are 2+ and equal bilaterally.). Absent: tenderness, pedal edema, joint swelling, calf tenderness Back exam: Present: normal inspection. Absent: paraspinal tenderness, vertebral tenderness Neurological exam: Present: alert, oriented X3, CN II-XII intact Psychiatric exam: Present: normal affect, normal mood Skin exam: Present: warm, dry, intact, normal color. Absent: rash Course Vital Signs 06/11/19 14:10 Temperature 98.3 F Pulse Rate 87 Respiratory 18 Rate Blood Pressure 166/68 O2 Sat by Pulse 97 Oximetry Medical Decision Making - Medical Decision Making 53-year-old male patient presents to the emergency department today for evaluation of increased his chronic low back pain. Patient is currently receiving disability for back pain. Denies taking any medications for pain. Physical examination is unremarkable. He is neurologically intact with no focal deficits. He has no concerning symptoms for cauda equina. Patient will be given an IM injection of Toradol here in the emergency department. We discharged her starter packs for Tylenol with Codeine and Flexeril. Prescrip tions will be sent to his pharmacy. He is instructed to follow-up with his primary care physician for recheck as soon as possible, he states he plans to do this tomorrow. Return parameters were discussed in detail. He verbalizes understanding and agrees with this plan. Disposition Clinical Impression: Acute exacerbation of chronic low back pain Disposition: HOME SELF-CARE Condition: Good Instructions (If sedation given, give patient instructions): Chronic Back Pain ([place]) Additional Instructions: Apply warm moist heat to the low back. Perform gentle range of motion exercises. Follow-up with your primary care physician for recheck as soon as po ssible. Return to the emergency department for any new, worsening, or concerning symptoms. Your prescriptions were sent to [facility] on [address] [place] [address] in [place]. Prescriptions: Cyclobenzaprine [Flexeril] 10 mg PO TID #15 tab Ibuprofen [Motrin] 600 mg PO Q8HR PRN #30 tab PRN Reason: Pain Is patient prescribed a controlled substance at d/c from ED?: No Referrals: Vivian Hamlin MD [Primary Care Provider] - 1-2 days Time of Disposition: 14:27
== END 2019-06-11 14:55 | disposition home or self-care (01) ==
LOC: EC 14:02
DX: G89.29 Other chronic pain (principal); M54.5 Low back pain; K21.9 Gastro-esophageal reflux disease without esophagitis; I25.2 Old myocardial infarction; Z79.899 Other long term (current) drug therapy; Z85.6 Personal history of leukemia; Z95.5 Presence of coronary angioplasty implant and graft
CPT/HCPCS: 96372; 99283; J1885

== ENCOUNTER 2019-07-28 07:17 | Emergency (ER) | payer OTHER ==
[2019-07-28] MEDS ORDERED: METOCLOPRAMIDE 5 MG/ML 2 ML VIAL IVP STA (07:42)
[2019-07-28] MEDS ORDERED: diphenhydrAMINE 50 MG/ML 1 ML VIAL IVP STA (07:42)
[2019-07-28] MEDS ORDERED: DEXAMETHASONE SOD PHOSPHATE 10 MG/ML 1 ML VIAL IV STA (07:44)
--- NOTE | 2019-07-28 07:46 | ED ---
Headache HPI - General Chief Complaint: Headache Stated Complaint: flulike symptoms Time Seen by Provider: 07/28/19 07:30 Mode of arrival: ambulatory Limitations: no limitations - History of Present Illness Initial Comments: The patient is a 53-year-old male with past history of coronary artery disease and diabetes who presents emergency Department with reported headache. He st ates that he awoke this morning with fevers, chills, headache and sore throat. He also reports to a nonproductive cough. Patient denies any vision changes. No neck pain or stiffness. Admits to sick contacts. His son is also in the emergency department with similar complaints. No blunt head trauma. Denies any unilateral numbness or weakness. Denies ear pain. Denies chest pain or shortness of breath. No abdominal pain. Reports to decreased appetite. He did not take any medications at home for his symptoms. Admits to nausea without vomiting. Also admits to photophobia. There is no sudden onset or maximal intensity. Admits to lumbar back pain which is chronic. No difficulties with ambulation. There are no other alleviating, precipitating or modifying factors - Related Data Home Medications Medication Instructions Recorded Confirmed Omeprazole [PriLOSEC] 20 mg PO BID PRN 10/24/18 07/28/19 Calcium Carbonate/Vitamin D3 1 tab PO DAILY 07/28/19 07/28/19 [Os-Len 500-Vit D3 200 Caplet] Cyclobenzaprine [Flexeril] 10 mg PO TID PRN 07/28/19 07/28/19 Ergocalciferol [Vitamin D2 50,000 unit PO Q7D 07/28/19 07/28/19 (DRISDOL)] Gabapentin [Neurontin] 100 mg PO HS 07/28/19 07/28/19 Glimepiride [Amaryl] 1 mg PO DAILY 07/28/19 07/28/19 Oxybutynin ER [Ditropan Xl] 10 mg PO DAILY 07/28/19 07/28/19 Pantoprazole Sodium 40 mg PO DAILY 07/28/19 07/28/19 Previous Rx's Medication Instructions Recorded Aspirin [Adult Low Dose Aspirin EC] 81 mg PO DAILY 90 Days #90 10/18/17 Atorvastatin [Lipitor] 20 mg PO DAILY #30 tab 10/18/17 Ibuprofen [Motrin] 600 mg PO Q8HR PRN #30 tab 06/11/19 Allergies Allergy/AdvReac Type Severity Reaction Status Date / Time No Known Allergies Allergy Verified 07/28/19 08:33 Review of Systems ROS Statement: Those systems with pertinent positive or pertinent negative responses have been documented in the HPI. ROS Other: All systems not noted in ROS Statement are negative. Past Medical History Past Medical History: Chest Pain / Angina, Diabetes Mellitus, GERD/Reflux, Hypertension, Myocardial Infarction ([place]), Prostate Disorder Additional Past Medical History / Comment(s): enlarged prostate, chronic low back pain with degenerative disc disease, Chronic lymphocytic leukemia Last Myocardial Infarction Date:: 10/09/2015 History of Any Multi-Drug Resistant Organisms: None Reported Past Surgical History: Appendectomy, Heart Catheterization With Stent Additional Past Surgical History / Comment(s): heart cath with 2 stents to circ. Past Anesthesia/Blood Transfusion Reactions: No Reported Reaction Date of Last Stent Placement:: 10/09/15 Past Psychological History: No Psychological Hx Reported Smoking Status: Never smoker Past Alcohol Use History: None Reported Past Drug Use History: None Reported - Past Family History Father Family Medical History: Diabetes Mellitus Mother Family Medical History: Diabetes Mellitus General Exam Limitations: no limitations Course Vital Signs 07/28/19 07/28/19 07/28/19 07:25 07:50 09:45 Temperature 97.7 F 98.2 F 98.7 F Pulse Rate 66 71 60 Respiratory 18 20 18 Rate Blood Pressure 149/91 136/70 149/77 O2 Sat by Pulse 100 95 99 Oximetry Medical Decision Making - Medical Decision Making Upon arrival the patient is placed into room 8. A history and physical exam was performed. Laboratory studies were conducted and the patient was sent for CT of his brain as well as a chest x-ray. CBC is unremarkable. Sed rate is 6. Potassium is 3.3 and I did replace her with 40 mEq of potassium. Creatinine is 0.64. Glucose 231. Patient is a diabetic. C-reactive protein is less than 5. Influenza A and B are negative. CT the patient's brain demonstrates no acute findings. Chest x-ray demonstrates chronic multifocal subsegmental atelectasis with right hemidiaphragm elevation. No acute process. I did discuss the results of the patient. Her 5 he had been established and the patient was given 10 mg of Decadron, 25 mg of Benadryl, 30 mg of ketorolac, 10 mg of Reglan. I reevaluated the patient he states his headache is gone at this time. As the patient did present reporting headaches and fevers I did recommend a lumbar puncture. Patient refused. Patient aware of the risks and benefits of the procedure. He continues to refuse. At this time the patient will be discharged home. He is to follow-up with his primary care physician within 2-4 days. If he has any new or worsening symptoms she should return to the emergency department. The patient was discharged home in stable condition - Lab Data Result diagrams: 07/28/19 08:08 07/28/19 08:08 Lab Results 07/28/19 07/28/19 07/28/19 Range/Units 08:08 08:08 08:10 WBC 5.7 (3.8-10.6) k/uL RBC 5.00 (4.30-5.90) m/uL Hgb 14.3 (13.0-17.5) gm/dL Hct 41.0 (39.0-53.0) % MCV 82.1 (80.0-100.0) fL MCH 28.6 (25.0-35.0) pg MCHC 34.8 (31.0-37.0) g/dL RDW 13.6 (11.5-15.5) % Plt Count 213 (150-450) k/uL Neutrophils % 49 % Lymphocytes % 40 % Monocytes % 7 % Eosinophils % 2 % Basophils % 0 % Neutrophils # 2.8 (1.3-7.7) k/uL Lymphocytes # 2.3 (1.0-4.8) k/uL Monocytes # 0.4 (0-1.0) k/uL Eosinophils # 0.1 (0-0.7) k/uL Basophils # 0.0 (0-0.2) k/uL ESR Cancelled Sodium 138 (137-145) mmol/L Potassium 3.3 L (3.5-5.1) mmol/L Chloride 105 (98-107) mmol/L Carbon Dioxide 23 (22-30) mmol/L Anion Gap 10 mmol/L BUN 10 (9-20) mg/dL Creatinine 0.64 L (0.66-1.25) mg/dL Est GFR (CKD-EPI)AfAm >90 (>60 ml/min/1.73 sqM) Est GFR (CKD-EPI)NonAf >90 (>60 ml/min/1.73 sqM) Glucose 231 H (74-99) mg/dL Calcium 9.4 (8.4-10.2) mg/dL Total Bilirubin 0.4 (0.2-1.3) mg/dL AST 17 (17-59) U/L ALT 28 (21-72) U/L Alkaline Phosphatase 86 (38-126) U/L C-Reactive Protein <5.0 (<10.0) mg/L Total Protein 7.0 (6.3-8.2) g/dL Albumin 4.1 (3.5-5.0) g/dL Influenza Type A RNA Not Detected (Not Detectd) Influenza Type B (PCR) Not Detected (Not Detectd) 07/28/19 Range/Units 09:22 WBC (3.8-10.6) k/uL RBC (4.30-5.90) m/uL Hgb (13.0-17.5) gm/dL Hct (39.0-53.0) % MCV (80.0-100.0) fL MCH (25.0-35.0) pg MCHC (31.0-37.0) g/dL RDW (11.5-15.5) % Plt Count (150-450) k/uL Neutrophils % % Lymphocytes % % Monocytes % % Eosinophils % % Basophils % % Neutrophils # (1.3-7.7) k/uL Lymphocytes # (1.0-4.8) k/uL Monocytes # (0-1.0) k/uL Eosinophils # (0-0.7) k/uL Basophils # (0-0.2) k/uL ESR 6 Sodium (137-145) mmol/L Potassium (3.5-5.1) mmol/L Chloride (98-107) mmol/L Carbon Dioxide (22-30) mmol/L Anion Gap mmol/L BUN (9-20) mg/dL Creatinine (0.66-1.25) mg/dL Est GFR (CKD-EPI)AfAm (>60 ml/min/1.73 sqM) Est GFR (CKD-EPI)NonAf (>60 ml/min/1.73 sqM) Glucose (74-99) mg/dL Calcium (8.4-10.2) mg/dL Total Bilirubin (0.2-1.3) mg/dL AST (17-59) U/L ALT (21-72) U/L Alkaline Phosphatase (38-126) U/L C-Reactive Protein (<10.0) mg/L Total Protein (6.3-8.2) g/dL Albumin (3.5-5.0) g/dL Influenza Type A RNA (Not Detectd) Influenza Type B (PCR) (Not Detectd) Disposition Clinical Impression: Headache, Cough Disposition: HOME SELF-CARE Condition: Stable Instructions (If sedation given, give patient instructions): Acute Headache (ED) Additional Instructions: Follow-up with your primary care doctor in 2-4 days. Return to the emergency room for any new or worsening symptoms. I did recommend a lumbar puncture. Take Motrin and Tylenol as needed for symptoms. Is patient prescribed a controlled substance at d/c from ED?: No Referrals: Vivian Hamlin MD [Primary Care Provider] - 1-2 days Time of Disposition: 09:21
[2019-07-28 08:22] LABS: Basophils % (A) 0 %; Eosinophils # (A) 0.1 k/uL (0-0.7); Eosinophils % (A) 2 %; HGB 14.3 gm/dL (13.0-17.5); Lymphocytes # (A) 2.3 k/uL (1.0-4.8); Lymphocytes % (A) 40 %; MCH 28.6 pg (25.0-35.0); MCHC 34.8 g/dL (31.0-37.0); MCV 82.1 fL (80.0-100.0); Mean Platelet Volume 7.5; Monocytes # (A) 0.4 k/uL (0-1.0); Monocytes % (A) 7 %; Neutrophils # (A) 2.8 k/uL (1.3-7.7); Neutrophils % (A) 49 %; Platelet Count 213 k/uL (150-450); RDW 13.6 % (11.5-15.5); WBC 5.7 k/uL (3.8-10.6)
[2019-07-28 08:30] LABS: ALT 28 U/L (21-72); AST 17 U/L (17-59); African American GFR (CKD) >90 (>60 ml/min/1.73 sqM); Albumin 4.1 g/dL (3.5-5.0); Alkaline Phosphatase 86 U/L (38-126); Anion Gap 10 mmol/L; Blood Urea Nitrogen 10 mg/dL (9-20); Calcium 9.4 mg/dL (8.4-10.2); Carbon Dioxide 23 mmol/L (22-30); Chloride 105 mmol/L (98-107); Glucose 231 mg/dL (74-99); Potassium 3.3 mmol/L (3.5-5.1); Sodium 138 mmol/L (137-145); Total Bilirubin 0.4 mg/dL (0.2-1.3)
--- NOTE | 2019-07-28 08:37 | CT ---
EXAMINATION TYPE: CT brain wo con DATE OF EXAM: 07/28/2019 COMPARISON: 02/17/2018 INDICATION: CHING DLP: 1064.4 mGycm, Automated exposure control for dose reduction was used. CONTRAST: None CT of the brain is performed utilizing 3 mm thick sections through the posterior fossa and 3 mm thick sections through the remaining calvarium. Study is performed within 24 hours of arrival to the hosp [facility]. No abnormal hyperdensity is present to suggest an acute intracranial hemorrhage. No mass lesion is evident. No acute infarcts are evident. Ventricles and sulci are appropriate for the patient age. Paranasal sinuses and mastoid air cells within the [id number] are clear. IMPRESSIONS: 1. Normal CT Brain
[2019-07-28 08:44] LABS: C Reactive Protein <5.0 mg/L (<10.0)
[2019-07-28] MEDS ORDERED: KETOROLAC 30 MG/ML 1 ML VIAL IVP STA (08:45)
[2019-07-28] MEDS ORDERED: POTASSIUM CHLORIDE ER 20 MEQ TAB.ER PO STA (08:50)
--- NOTE | 2019-07-28 08:52 | XR ---
EXAMINATION TYPE: XR chest 2V DATE OF EXAM: 07/28/2019 COMPARISON: 02/27/2019 HISTORY: Cough and congestion TECHNIQUE: Frontal and lateral views of the chest are obtained. FINDINGS: Chronic right hemidiaphragm elevation is seen. Multifocal linear right sided atelectasis a s platelike. This also appears chronic. Coronary artery stent is seen. Cardiomediastinal silhouette i s within normal limits. No focal consolidation, pleural effusion or pneumothorax. Mild degenerative c hanges of the spine. IMPRESSION: Chronic multifocal subsegmental atelectasis and right hemidiaphragm elevation. No acute process.
[2019-07-28 09:47] VITALS: BP 149/77; PULSE 60; RESP 18; TEMP 98.7
== END 2019-07-28 09:47 | disposition home or self-care (01) ==
LOC: EC 07:17
DX: R51 Headache (principal); R05 Cough; R50.9 Fever, unspecified; Z91.19 Patient's noncompliance with other medical treatment and regimen; E11.9 Type 2 diabetes mellitus without complications; K21.9 Gastro-esophageal reflux disease without esophagitis; I10 Essential (primary) hypertension; I25.2 Old myocardial infarction; Z79.84 Long term (current) use of oral hypoglycemic drugs; Z79.899 Other long term (current) drug therapy; Z95.5 Presence of coronary angioplasty implant and graft; Z85.6 Personal history of leukemia
CPT/HCPCS: 36415; 80053; 85652; 85025; 86140; 87502; 71046; 70450; 99284; 96374; 96375 ×3; J1200; J1100; J2765; J1885

== ENCOUNTER → 2019-10-01 | Outpatient (CLI) | payer OTHER ==
[2019-10-01 16:41] LABS: HCT 43.8 % (39.0-53.0); HGB 14.7 gm/dL (13.0-17.5); MCHC 33.6 g/dL (31.0-37.0); MCV 83.4 fL (80.0-100.0); Mean Platelet Volume 10.1; Platelet Count 201 k/uL (150-450); Poikilocytosis Slight; RBC 5.25 m/uL (4.30-5.90); RDW 14.2 % (11.5-15.5); WBC 5.4 k/uL (3.8-10.6)
[2019-10-01 16:56] LABS: African American GFR (CKD) >90 (>60 ml/min/1.73 sqM); Anion Gap 9 mmol/L; Blood Urea Nitrogen 10 mg/dL (9-20); Carbon Dioxide 24 mmol/L (22-30); Chloride 106 mmol/L (98-107); Non-African American GFR(CKD) >90 (>60 ml/min/1.73 sqM); Potassium 3.7 mmol/L (3.5-5.1); Sodium 139 mmol/L (137-145)
== END | disposition home or self-care (01) ==
LOC: LABPAT 15:30
PROVIDERS: ATTEND Internal Medicine Cardiovascular Disease
DX: Z01.812 Encounter for preprocedural laboratory examination (principal); R07.2 Precordial pain
CPT/HCPCS: 80051; 82565; 84520; 85027

== ENCOUNTER → 2020-10-25 | Outpatient (CLI) | payer OTHER ==
[2020-10-26 02:25] LABS: Chol/HDL Ratio 2.94; LDL Cholesterol,Calculated 65.6 mg/dL (0.0-131.0); VLDL Calculation 33.4 mg/dL (5.00-40.00)
== END | disposition home or self-care (01) ==
LOC: LABWHC1 16:09
PROVIDERS: ATTEND Internal Medicine Cardiovascular Disease
DX: E78.2 Mixed hyperlipidemia (principal)
CPT/HCPCS: 36415; 80061; 84450; 84460

== ENCOUNTER 2020-11-04 16:31 | Emergency (ER) | payer OTHER ==
[2020-11-04 16:50] VITALS: TEMP 97.7
--- NOTE | 2020-11-04 17:04 | ED ---
General Adult HPI - General Chief complaint: Dizziness Stated complaint: Headache Time Seen by Provider: 11/04/20 17:03 Source: patient Mode of arrival: ambulatory Limitations: no limitations - History of Present Illness Initial comments: 54-year-old male presenting to the emergency department with a chief complaint of neck pain and headache. Patient reports symptoms have been ongoing for the past 3 days. Patient reports was gradual onset of symptoms. States the headache is not the worst headache of his life. Patient states he does have history of chronic neck pain and has been evaluated before with no significant findings. Patient states when the pain is worse usually comes to the emergency department for symptomatically relief. Patient reports he typically develops a headache after the neck pain starts in the left side. He also reports pain behind his left eye which is typical whenever he has a headache. Denies any visual changes. States he has been evaluated by an bid manager and there was no significant findings. He denies any nausea or vomiting or photosensitivity. Denies any night sweats fevers or chills. Denies any chest pain or shortness of breath. Denies one-sided weakness or paresthesias. Patient states the room does not spin around him nor does he feel like passing out. - Related Data Home Medications Medication Instructions Recorded Confirmed Omeprazole [PriLOSEC] 20 mg PO BID PRN 10/24/18 07/28/19 Calcium Carbonate/Vitamin D3 1 tab PO DAILY 07/28/19 07/28/19 [Os-Len 500-Vit D3 200 Caplet] Cyclobenzaprine [Flexeril] 10 mg PO TID PRN 07/28/19 07/28/19 Ergocalciferol [Vitamin D2 50,000 unit PO Q7D 07/28/19 07/28/19 (DRISDOL)] Gabapentin [Neurontin] 100 mg PO HS 07/28/19 07/28/19 Glimepiride [Amaryl] 1 mg PO DAILY 07/28/19 07/28/19 Oxybutynin ER [Ditropan Xl] 10 mg PO DAILY 07/28/19 07/28/19 Pantoprazole Sodium 40 mg PO DAILY 07/28/19 07/28/19 Previous Rx's Medication Instructions Recorded Aspirin [Adult Low Dose Aspirin EC] 81 mg PO DAILY 90 Days #90 10/18/17 Atorvastatin [Lipitor] 20 mg PO DAILY #30 tab 10/18/17 Ibuprofen [Motrin] 600 mg PO Q8HR PRN #30 tab 06/11/19 Allergies Allergy/AdvReac Type Severity Reaction Status Date / Time No Known Allergies Allergy Verified 11/04/20 16:49 Review of Systems ROS Statement: Those systems with pertinent positive or pertinent negative responses have been documented in the HPI. ROS Other: All systems not noted in ROS Statement are negative. Past Medical History Past Medical History: Chest Pain / Angina, Diabetes Mellitus, GERD/Reflux, Hypertension, Myocardial Infarction ([place]), Prostate Disorder Additional Past Medical History / Comment(s): enlarged prostate, chronic low back pain with degenerative disc disease, Chronic lymphocytic leukemia Last Myocardial Infarction Date:: 10/09/2015 History of Any Multi-Drug Resistant Organisms: None Reported Past Surgical History: Appendectomy, Heart Catheterization With Stent Additional Past Surgical History / Comment(s): heart cath with 2 stents to circ. Past Anesthesia/Blood Transfusion Reactions: No Reported Reaction Date of Last Stent Placement:: 10/09/15 Past Psychological History: No Psychological Hx Reported Smoking Status: Never smoker Past Alcohol Use History: None Reported Past Drug Use History: None Reported - Past Family History Father Family Medical History: Diabetes Mellitus Mother Family Medical History: Diabetes Mellitus General Exam Limitations: no limitations General appearance: alert, in no apparent distress Head exam: Present: atraumatic, normocephalic, normal inspection Eye exam: Present: normal appearance, PERRL, EOMI. Absent: scleral icterus, conjunctival injection, nystagmus, periorbital swelling, periorbital tenderness, other Pupils: Present: normal accommodation ENT exam: Present: normal exam, normal oropharynx, mucous membranes moist, TM's normal bilaterally, normal external ear exam Neck exam: Present: normal inspection, tenderness (Some tenderness near the left trapezius. Left paraspinal tenderness of the cervical spine.), full ROM. Absent: lymphadenopathy Respiratory exam: Present: normal lung sounds bilaterally. Absent: respiratory distress, wheezes, rales, rhonchi, chest wall tenderness Cardiovascular Exam: Present: regular rate, normal rhythm, normal heart sounds Extremities exam: Present: normal inspection, full ROM, normal capillary refill. Absent: tenderness, pedal edema, joint swelling Back exam: Present: normal inspection, full ROM. Absent: tenderness, CVA tenderness (R), CVA tenderness (L) Neurological exam: Present: alert, oriented X3, CN II-XII intact, normal gait Psychiatric exam: Present: normal affect, normal mood Skin exam: Present: warm, dry, intact, normal color Course Vital Signs 11/04/20 11/04/20 16:47 19:14 Temperature 97.7 F Pulse Rate 81 69 Respiratory 18 17 Rate Blood Pressure 148/76 120/57 O2 Sat by Pulse 99 100 Oximetry EKG Findings - EKG Comments: EKG Findings:: Sinus rhythm, ventricular rate 77, MI 136, QRS 86, QTC 414. Medical Decision Making - Medical Decision Making 54-year-old male presenting to the emergency department with a chief complaint of a headache. Patient seen multiple times in the emergency department for the same chief complaint. He has chronic back pain that usually exacerbates into a headache. He has been evaluated for the pain behind the left eye multiple times by an bid manager and no significant findings. No focal deficits. CBC unremarkable. CMP shows elevated blood glucose of 294. Patient is diabetic. Patient does not want any insulin here. Patient was offered CT imaging of the h ead, he declined. Patient was given IV fluids, Reglan, Benadryl, Toradol and Decadron. On reevaluation, patient reports improvement in symptoms. States he has an appointment to see his primary care within the next few days. Return parameters were thoroughly discussed with patient was understanding and agreeable. Case discussed with physician. - Lab Data Result diagrams: 11/04/20 Unknown 11/04/20 Unknown Lab Results 11/04/20 11/04/20 Range/Units Unknown Unknown WBC 6.0 (3.8-10.6) k/uL RBC 5.23 (4.30-5.90) m/uL Hgb 15.2 (13.0-17.5) gm/dL Hct 46.0 (39.0-53.0) % MCV 87.9 (80.0-100.0) fL MCH 29.0 (25.0-35.0) pg MCHC 33.0 (31.0-37.0) g/dL RDW 13.4 (11.5-15.5) % Plt Count 201 (150-450) k/uL MPV 9.6 Neutrophils % 60 % Lymphocytes % 31 % Monocytes % 6 % Eosinophils % 1 % Basophils % 0 % Neutrophils # 3.6 (1.3-7.7) k/uL Lymphocytes # 1.8 (1.0-4.8) k/uL Monocytes # 0.3 (0-1.0) k/uL Eosinophils # 0.1 (0-0.7) k/uL Basophils # 0.0 (0-0.2) k/uL Sodium 135 L (137-145) mmol/L Potassium 4.5 (3.5-5.1) mmol/L Chloride 104 (98-107) mmol/L Carbon Dioxide 22 (22-30) mmol/L Anion Gap 9 mmol/L BUN 12 (9-20) mg/dL Creatinine 0.50 L (0.66-1.25) mg/dL Est GFR (CKD-EPI)AfAm >90 (>60 ml/min/1.73 sqM) Est GFR (CKD-EPI)NonAf >90 (>60 ml/min/1.73 sqM) Glucose 294 H (74-99) mg/dL Calcium 9.3 (8.4-10.2) mg/dL Total Bilirubin 0.6 (0.2-1.3) mg/dL AST 29 (17-59) U/L ALT 29 (4-49) U/L Alkaline Phosphatase 73 (38-126) U/L Total Protein 7.4 (6.3-8.2) g/dL Albumin 4.3 (3.5-5.0) g/dL Disposition Clinical Impression: Headache Disposition: HOME SELF-CARE Condition: Stable Instructions (If sedation given, give patient instructions): Acute Headache (DC) Additional Instructions: Follow-up with your primary care physician. Return to emergency department if symptoms worsen. Is patient prescribed a controlled substance at d/c from ED?: No Referrals: Vivian Hamlin MD [Primary Care Provider] - 1-2 days Time of Disposition: 19:05
[2020-11-04] MEDS ORDERED: METOCLOPRAMIDE 5 MG/ML 2 ML VIAL IVP STA (17:22)
[2020-11-04] MEDS ORDERED: KETOROLAC 15 MG/ML 1 ML VIAL IVP STA (17:22)
[2020-11-04] MEDS ORDERED: diphenhydrAMINE 50 MG/ML 1 ML VIAL IVP STA (17:22)
[2020-11-04] MEDS ORDERED: DEXAMETHASONE SOD PHOSPHATE 10 MG/ML 1 ML VIAL IV STA (17:22)
[2020-11-04] MEDS ORDERED: SODIUM CHLORIDE 0.9% 1,000 ML IV STA (17:23)
[2020-11-04 17:37] LABS: Basophils % (A) 0 %; Eosinophils # (A) 0.1 k/uL (0-0.7); Eosinophils % (A) 1 %; HGB 15.2 gm/dL (13.0-17.5); Lymphocytes # (A) 1.8 k/uL (1.0-4.8); Lymphocytes % (A) 31 %; MCV 87.9 fL (80.0-100.0); Mean Platelet Volume 9.6; Monocytes # (A) 0.3 k/uL (0-1.0); Monocytes % (A) 6 %; Neutrophils # (A) 3.6 k/uL (1.3-7.7); Neutrophils % (A) 60 %; Platelet Count 201 k/uL (150-450); RBC 5.23 m/uL (4.30-5.90); RDW 13.4 % (11.5-15.5)
[2020-11-04 17:55] LABS: ALT 29 U/L (4-49); AST 29 U/L (17-59); African American GFR (CKD) >90 (>60 ml/min/1.73 sqM); Albumin 4.3 g/dL (3.5-5.0); Alkaline Phosphatase 73 U/L (38-126); Anion Gap 9 mmol/L; Blood Urea Nitrogen 12 mg/dL (9-20); Calcium 9.3 mg/dL (8.4-10.2); Carbon Dioxide 22 mmol/L (22-30); Chloride 104 mmol/L (98-107); Glucose 294 mg/dL (74-99); Non-African American GFR(CKD) >90 (>60 ml/min/1.73 sqM); Potassium 4.5 mmol/L (3.5-5.1); Sodium 135 mmol/L (137-145); Total Bilirubin 0.6 mg/dL (0.2-1.3); Total Protein 7.4 g/dL (6.3-8.2)
[2020-11-04 19:15] VITALS: BP 120/57; PULSE 69; RESP 17
== END 2020-11-04 19:20 | disposition home or self-care (01) ==
LOC: EC 16:31
DX: R51.9 Headache, unspecified (principal); G89.29 Other chronic pain; M54.9 Dorsalgia, unspecified; E11.9 Type 2 diabetes mellitus without complications; K21.9 Gastro-esophageal reflux disease without esophagitis; I10 Essential (primary) hypertension; M54.2 Cervicalgia; I25.2 Old myocardial infarction; N40.0 Benign prostatic hyperplasia without lower urinary tract symptoms; Z79.4 Long term (current) use of insulin; Z79.899 Other long term (current) drug therapy; Z83.3 Family history of diabetes mellitus; Z95.5 Presence of coronary angioplasty implant and graft
CPT/HCPCS: 36415; 93005; 80053; 85025; 99284; 96374; 96375 ×3; 96361 ×2; J1200; J1100; J2765; J1885

== ENCOUNTER → 2020-12-17 | Outpatient (CLI) | payer OTHER ==
--- NOTE | 2020-12-17 15:52 | US ---
EXAMINATION TYPE: US scrotum with doppler. Grayscale and color Doppler Duplex imaging performed of t he scrotum. DATE OF EXAM: 12/17/2020 COMPARISON: NONE CLINICAL HISTORY: Lt testicular mass. Pain left side. EXAM MEASUREMENTS: TESTICLES: Right Testicle: 3.9 x 2.0 x 2.6 cm Left Testicle: 3.5 x 2.0 x 2.4 cm EPIDIDYMIS HEAD: Right Epididymis: 1.0 cm Cystic area seen .5 x .5 x .4 cm. Left Epididymis: .8 x .6 x .9 cm Doppler performed to assess for testicular vascularity; good bilateral color flow and waveforms are s een. There is no evidence of testicular torsion. Presence of hydroceles: No Presence of varicoceles: No IMPRESSION: 1. Epididymal cyst. 2. Scrotal ultrasound is otherwise unremarkable.
== END ==
LOC: RADUSWWP 14:37
PROVIDERS: ATTEND Internal Medicine
DX: N50.3 Cyst of epididymis (principal)
CPT/HCPCS: 76870; 93975

== ENCOUNTER → 2021-04-01 | Outpatient (CLI) | payer MEDICARE, OTHER ==
--- NOTE | 2021-04-01 14:54 | XR ---
EXAMINATION TYPE: XR hand complete RT DATE OF EXAM: 04/01/2021 CLINICAL HISTORY: Right first and second metacarpal pain TECHNIQUE: Frontal, lateral and oblique images of the right hand are obtained. COMPARISON: None. FINDINGS: There is no acute fracture/dislocation evident in the right hand. The joint spaces in the right hand appear within normal limits. The overlying soft tissue appears unremarkable. IMPRESSION: There is no acute fracture or dislocation in the right hand.
== END | disposition home or self-care (01) ==
LOC: RADXRMAIN 14:28
PROVIDERS: ATTEND Internal Medicine
DX: M79.641 Pain in right hand (principal)

== ENCOUNTER 2021-06-17 00:34 | Emergency (ER) | payer MEDICARE, OTHER ==
[2021-06-17] MEDS ORDERED: diphenhydrAMINE 50 MG CAP PO STA (02:10)
[2021-06-17] MEDS ORDERED: KETOROLAC 15 MG/ML 1 ML VIAL IM STA (02:10)
[2021-06-17] MEDS ORDERED: dexAMETHasone 2 MG TAB PO STA (02:10)
--- NOTE | 2021-06-17 02:11 | ED ---
Headache HPI - General Chief Complaint: Headache Stated Complaint: Head/neck pain Time Seen by Provider: 06/17/21 01:16 Source: RN notes reviewed, old records reviewed Mode of arrival: ambulatory Limitations: no limitations - History of Present Illness Initial Comments: This is a 55-year-old male to the emergency department today for evaluation of headache. A she has a long chronic history of headaches and is presented today for evaluation of headaches. Patient states headache is acute on chronic currently. Patient has no recent traumas no fevers no neurological complaints. MD Complaint: headache, "migraine" -: days(s) Onset Description: gradual Location: right, left, frontal Severity: mild, moderate Severity scale (1-10): 6 Quality: aching, throbbing Consistency: intermittent Improves With: nothing Worsens With: none Associated Symptoms: nausea Treatments Prior to Arrival: none - Related Data Home Medications Medication Instructions Recorded Confirmed Omeprazole [PriLOSEC] 20 mg PO BID PRN 10/24/18 07/28/19 Calcium Carbonate/Vitamin D3 1 tab PO DAILY 07/28/19 07/28/19 [Os-Len 500-Vit D3 200 Caplet] Cyclobenzaprine [Flexeril] 10 mg PO TID PRN 07/28/19 07/28/19 Ergocalciferol [Vitamin D2 50,000 unit PO Q7D 07/28/19 07/28/19 (DRISDOL)] Gabapentin [Neurontin] 100 mg PO HS 07/28/19 07/28/19 Glimepiride [Amaryl] 1 mg PO DAILY 07/28/19 07/28/19 Oxybutynin ER [Ditropan Xl] 10 mg PO DAILY 07/28/19 07/28/19 Pantoprazole Sodium 40 mg PO DAILY 07/28/19 07/28/19 Previous Rx's Medication Instructions Recorded Aspirin [Adult Low Dose Aspirin EC] 81 mg PO DAILY 90 Days #90 10/18/17 Atorvastatin [Lipitor] 20 mg PO DAILY #30 tab 10/18/17 Ibuprofen [Motrin] 600 mg PO Q8HR PRN #30 tab 06/11/19 Allergies Allergy/AdvReac Type Severity Reaction Status Date / Time No Known Allergies Allergy Verified 06/17/21 01:07 Review of Systems ROS Statement: Those systems with pertinent positive or pertinent negative responses have been documented in the HPI. ROS Other: All systems not noted in ROS Statement are negative. Past Medical History Past Medical History: Chest Pain / Angina, Diabetes Mellitus, GERD/Reflux, Hypertension, Myocardial Infarction ([place]), Prostate Disorder Additional Past Medical History / Comment(s): enlarged prostate, chronic low back pain with degenerative disc disease, Chronic lymphocytic leukemia Last Myocardial Infarction Date:: 10/09/2015 History of Any Multi-Drug Resistant Organisms: None Reported Past Surgical History: Appendectomy, Heart Catheterization With Stent Additional Past Surgical History / Comment(s): heart cath with 2 stents to circ. Past Anesthesia/Blood Transfusion Reactions: No Reported Reaction Date of Last Stent Placement:: 10/09/15 Past Psychological History: No Psychological Hx Reported Smoking Status: Never smoker Past Alcohol Use History: None Reported Past Drug Use History: None Reported - Past Family History Father Family Medical History: Diabetes Mellitus Mother Family Medical History: Diabetes Mellitus General Exam General appearance: alert, in no apparent distress Head exam: Present: atraumatic, normocephalic, normal inspection Eye exam: Present: normal appearance, PERRL, EOMI. Absent: scleral icterus, conjunctival injection, periorbital swelling ENT exam: Present: normal exam, mucous membranes moist Neck exam: Present: normal inspection. Absent: tenderness, meningismus, lymphadenopathy Respiratory exam: Present: normal lung sounds bilaterally. Absent: respiratory distress, wheezes, rales, rhonchi, stridor Cardiovascular Exam: Present: regular rate, normal rhythm, normal heart sounds. Absent: systolic murmur, diastolic murmur, rubs, gallop, clicks GI/Abdominal exam: Present: soft, normal bowel sounds. Absent: distended, tenderness, guarding, rebound, rigid Extremities exam: Present: normal inspection, full ROM, normal capillary refill. Absent: tenderness, pedal edema, joint swelling, calf tenderness Back exam: Present: normal inspection Neurological exam: Present: alert, oriented X3, CN II-XII intact Psychiatric exam: Present: normal affect, normal mood Skin exam: Present: warm, dry, intact, normal color. Absent: rash Course Vital Signs 06/17/21 01:04 Temperature 97.7 F Pulse Rate 71 Respiratory 19 Rate Blood Pressure 129/60 O2 Sat by Pulse 98 Oximetry - Reevaluation(s) Reevaluation #1: 06/17/21 02:17 Medical record is reviewed Reevaluation #2: 06/17/21 02:17 Patient symptoms are improved here in the ER Medical Decision Making - Medical Decision Making 55 male to the emergency department for evaluation of acute on chronic headache. At this time patient will be discharged home as his headache is resolved Disposition Clinical Impression: Migraine headache, Headache Disposition: HOME SELF-CARE Condition: Good Instructions (If sedation given, give patient instructions): Acute Headache (ED) Is patient prescribed a controlled substance at d/c from ED?: No Referrals: Vivian Hamlin MD [Primary Care Provider] - 1-2 days
[2021-06-17] MEDS ORDERED: PROCHLORPERAZINE 10 MG TAB PO ONE (02:15)
[2021-06-17 02:53] VITALS: BP 108/64; PULSE 62; RESP 18; TEMP 97.6
== END 2021-06-17 02:51 | disposition home or self-care (01) ==
LOC: EC 00:34
DX: G43.909 Migraine, unspecified, not intractable, without status migrainosus (principal); E11.9 Type 2 diabetes mellitus without complications; I10 Essential (primary) hypertension; I25.2 Old myocardial infarction; K21.9 Gastro-esophageal reflux disease without esophagitis; Z79.82 Long term (current) use of aspirin; Z90.49 Acquired absence of other specified parts of digestive tract
CPT/HCPCS: 99283; 96372; S0183; J8540; J1885

== ENCOUNTER → 2022-03-22 | Outpatient (CLI) | payer MEDICARE, OTHER ==
[2022-03-22 22:48] LABS: ALT 34 U/L (10-49); AST 19 U/L (14-35); Chol/HDL Ratio 2.77 Ratio; LDL Cholesterol,Calculated 77.7 mg/dL (0.0-131.0); VLDL Calculation 16.34 mg/dL (5.00-40.00)
== END | disposition home or self-care (01) ==
LOC: LABWHC1 14:13
PROVIDERS: ATTEND Nurse Practitioner Family
DX: E78.2 Mixed hyperlipidemia (principal)
CPT/HCPCS: 36415; 80061; 84450; 84460

== ENCOUNTER 2022-06-15 18:17 | Emergency (ER) | payer MEDICARE, OTHER ==
[2022-06-15 19:13] VITALS: TEMP 97.6
[2022-06-15] MEDS ORDERED: diphenhydrAMINE 50 MG/ML 1 ML VIAL IVP STA (22:21)
[2022-06-15] MEDS ORDERED: KETOROLAC 15 MG/ML 1 ML VIAL IVP STA (22:21)
[2022-06-15] MEDS ORDERED: METOCLOPRAMIDE 5 MG/ML 2 ML VIAL IVP STA (22:21)
[2022-06-15] MEDS ORDERED: DEXAMETHASONE SOD PHOSPHATE 10 MG/ML 1 ML VIAL IV STA (22:21)
[2022-06-15] MEDS ORDERED: SODIUM CHLORIDE 0.9% 1,000 ML IV STA (22:21)
[2022-06-15 23:12] VITALS: RESP 16
--- NOTE | 2022-06-15 23:43 | ED ---
Headache HPI - General Chief Complaint: Headache Stated Complaint: back, neck , head pain Time Seen by Provider: 06/15/22 22:16 Source: patient, RN notes reviewed Mode of arrival: ambulatory - History of Present Illness Initial Comments: This is a 56-year-old male who presents to the emergency department for a migraine. Patient has a history of migraines, and states that this feels like a typical migraine. This been present for the last week, he was hoping it would go away on its own, however that was not the case. He does have some pain in the neck and lower back, which are chronic issues. Denies any symptoms that are different from usual. He often gets migraine cocktails in the emergency department which have worked very well. He does have minor associated nausea, denies any episodes of emesis. Denies any fevers, chills, sore throat, cough, dyspnea, chest pain, palpitations, abdominal pain, vomiting, or diarrhea. MD Complaint: "migraine" Onset/Timin -: week(s) Onset Description: gradual - Related Data Home Medications Medication Instructions Recorded Confirmed Omeprazole [PriLOSEC] 20 mg PO BID PRN 10/24/18 07/28/19 Calcium Carbonate/Vitamin D3 1 tab PO DAILY 07/28/19 07/28/19 [Os-Len 500-Vit D3 200 Caplet] Cyclobenzaprine [Flexeril] 10 mg PO TID PRN 07/28/19 07/28/19 Ergocalciferol [Vitamin D2 50,000 unit PO Q7D 07/28/19 07/28/19 (ISDOL)] Gabapentin [Neurontin] 100 mg PO HS 07/28/19 07/28/19 Glimepiride [Amaryl] 1 mg PO DAILY 07/28/19 07/28/19 Oxybutynin ER [Ditropan Xl] 10 mg PO DAILY 07/28/19 07/28/19 Pantoprazole Sodium 40 mg PO DAILY 07/28/19 07/28/19 Previous Rx's Medication Instructions Recorded Aspirin [Adult Low Dose Aspirin EC] 81 mg PO DAILY 90 Days #90 10/18/17 channing. Atorvastatin [Lipitor] 20 mg PO DAILY #30 tab 10/18/17 Ibuprofen [Motrin] 600 mg PO Q8HR PRN #30 tab 06/11/19 Allergies Allergy/AdvReac Type Severity Reaction Status Date / Time No Known Allergies Allergy Verified 06/15/22 19:13 Review of Systems ROS Statement: Those systems with pertinent positive or pertinent negative responses have been documented in the HPI. ROS Other: All systems not noted in ROS Statement are negative. Past Medical History Past Medical History: Chest Pain / Angina, Diabetes Mellitus, GERD/Reflux, Hypertension, Myocardial Infarction ([place]), Prostate Disorder Additional Past Medical History / Comment(s): enlarged prostate, chronic low back pain with degenerative disc disease, Chronic lymphocytic leukemia Last Myocardial Infarction Date:: 10/09/2015 History of Any Multi-Drug Resistant Organisms: None Reported Past Surgical History: Appendectomy, Heart Catheterization With Stent Additional Past Surgical History / Comment(s): heart cath with 2 stents to circ. Past Anesthesia/Blood Transfusion Reactions: No Reported Reaction Date of Last Stent Placement:: 10/09/15 Past Psychological History: No Psychological Hx Reported Smoking Status: Never smoker Past Alcohol Use History: None Reported Past Drug Use History: None Reported - Past Family History Father Family Medical History: Diabetes Mellitus Mother Family Medical History: Diabetes Mellitus General Exam General appearance: alert, in no apparent distress Head exam: Present: atraumatic, normocephalic, normal inspection Neck exam: Present: normal inspection. Absent: tenderness, meningismus, lymphadenopathy Respiratory exam: Present: normal lung sounds bilaterally. Absent: respiratory distress, wheezes, rales, rhonchi, stridor Cardiovascular Exam: Present: regular rate, normal rhythm, normal heart sounds. Absent: systolic murmur, diastolic murmur, rubs, gallop, clicks Back exam: Present: normal inspection, full ROM. Absent: tenderness Neurological exam: Present: alert, oriented X3, CN II-XII intact Psychiatric exam: Present: normal affect, normal mood Skin exam: Present: warm, dry, intact, normal color. Absent: rash Course Vital Signs 06/15/22 06/15/22 06/16/22 19:10 23:12 00:21 Temperature 97.6 F Pulse Rate 71 68 55 L Respiratory 18 16 16 Rate Blood Pressure 129/82 147/74 121/68 O2 Sat by Pulse 99 98 97 Oximetry 06/16/22 01:03 Temperature Pulse Rate 65 Respiratory 16 Rate Blood Pressure O2 Sat by Pulse 98 Oximetry Medical Decision Making - Medical Decision Making This is a 56-year-old male who presents to the emergency department for a migraine. Given that the patient has no new symptoms related to this migraine, will not obtain any lab work or imaging. Patient given migraine cocktail consisting of Reglan, Decadron, Toradol, and Benadryl. Patient noted substantial improvement after medication administration. Starter pack for Zofran provided. Advised to alternate with ibuprofen and Tylenol as needed for pain relief. Return precautions reviewed in depth, the patient is instructed to return to the emergency department with any new, worsening, or concerning symptoms. Patient verbalized understanding. This case was discussed in detail with the attending ED physician. Presentation, findings, and treatment plan discussed in detail as well. Disposition Clinical Impression: Migraine headache Disposition: HOME SELF-CARE Instructions (If sedation given, give patient instructions): Migraine Headache (ED) Additional Instructions: Return to the emergency department with any new, worsening, or concerning symptoms. Take the Zofran up to every 8 hours as needed for nausea and vomiting. Alternate with ibuprofen and Tylenol as needed for any additional pain relief. Is patient prescribed a controlled substance at d/c from ED?: No Referrals: Vivian Hamlin MD [Primary Care Provider] - 1-2 days
[2022-06-16 00:21] VITALS: BP 121/68
[2022-06-16] MEDS ORDERED: ONDANSETRON 4 MG ODT STARTER PACK 2 TAB BTL PO STA (00:39)
[2022-06-16 01:04] VITALS: PULSE 65
== END 2022-06-16 01:04 | disposition home or self-care (01) ==
LOC: EC 18:17
DX: G43.909 Migraine, unspecified, not intractable, without status migrainosus (principal); E11.9 Type 2 diabetes mellitus without complications; I10 Essential (primary) hypertension; I25.2 Old myocardial infarction; K21.9 Gastro-esophageal reflux disease without esophagitis; Z79.899 Other long term (current) drug therapy; Z79.84 Long term (current) use of oral hypoglycemic drugs
CPT/HCPCS: 99283; 96374; 96375; 96361; J1200; J1100; J2765; J1885; S0119

== ENCOUNTER → 2022-10-02 | Outpatient (CLI) | payer MEDICARE, OTHER ==
[2022-10-02 22:53] LABS: ALT 37 U/L (10-49); AST 20 U/L (14-35); Chol/HDL Ratio 2.22 Ratio; LDL Cholesterol,Calculated 42.6 mg/dL (0.0-131.0)
== END | disposition home or self-care (01) ==
LOC: LABWHC1 15:33
PROVIDERS: ATTEND Internal Medicine Cardiovascular Disease
DX: E78.2 Mixed hyperlipidemia (principal)
CPT/HCPCS: 36415; 80061; 84450; 84460

== ENCOUNTER → 2022-11-06 | Outpatient (CLI) | payer MEDICARE, OTHER ==
[2022-11-07 05:35] LABS: C-Peptide 1.45 ng/mL (0.81-3.85)
[2022-11-07 10:22] LABS: African American GFR (CKD) 122.3 (60.0-200.0); Albumin 4.7 g/dL (3.8-4.9); Albumin/Globulin Ratio 1.88 (1.60-3.17); Anion Gap 13.1 mmol/L (10.00-18.00); BUN/Creat Ratio 19.29 Ratio (12.00-20.00); Blood Urea Nitrogen 13.5 mg/dL (9.0-27.0); Calcium 9.6 mg/dL (8.7-10.3); Carbon Dioxide 21.9 mmol/L (20.0-27.5); Globulin 2.5 g/dL (1.6-3.3); Non-African American GFR(CKD) 105.5 (60.0-200.0); Total Bilirubin 1.4 mg/dL (0.30-1.20); Total Protein 7.2 g/dL (6.2-8.2)
== END | disposition home or self-care (01) ==
LOC: LABWHC1 14:13
PROVIDERS: ATTEND Internal Medicine Endocrinology, Diabetes & Metabolism
DX: E11.65 Type 2 diabetes mellitus with hyperglycemia (principal)
CPT/HCPCS: 36415; 80053; 84681

== ENCOUNTER 2023-06-14 19:50 | Emergency (ER) | payer MEDICARE, OTHER ==
[2023-06-14] MEDS ORDERED: SODIUM CHLORIDE 0.9% 500 ML 500 ML IV STA (20:26)
--- NOTE | 2023-06-14 21:05 | ED ---
General Adult HPI - General Source: patient, RN notes reviewed, old records reviewed Mode of arrival: ambulatory Limitations: no limitations - History of Present Illness -: days(s) (2) Location: head (behind right eye) Radiation: non-radiation Severity scale (1-10): 9 Quality: aching Consistency: intermittent Associated Symptoms: malaise, other (dizziness, photophobia, body aches) Treatments Prior to Arrival: none <Otis Quiñones - Last Filed: 06/14/23 23:58> <Ivan Leonard - Last Filed: 06/15/23 01:37> - General Chief complaint: Dizziness Stated complaint: Dizziness Time Seen by Provider: 06/14/23 20:25 - History of Present Illness Initial comments: 57-year-old male, alert and oriented 4 presents to the emergency room with complaints of dizziness, right frontal headache behind right eye and body aches for a week. Patient states worsening headache over the past couple of days, comes and goes. He has had a history of dizziness and headaches for the past 4 years. Did see a neurologist with no definitive diagnosis. Yesterday when he was driving the headache got really bad although he states was able to continue driving. Medical history of diabetes, hypertension, [place], CLL and chronic low back pain. Surgical history of stent and appendectomy. (Otis Quiñones) - Related Data Home Medications Medication Instructions Recorded Confirmed Omeprazole [PriLOSEC] 20 mg PO BID PRN 10/24/18 07/28/19 Calcium Carbonate/Vitamin D3 1 tab PO DAILY 07/28/19 07/28/19 [Os-Len 500-Vit D3 200 Caplet] Cyclobenzaprine [Flexeril] 10 mg PO TID PRN 07/28/19 07/28/19 Ergocalciferol [Vitamin D2 50,000 unit PO Q7D 07/28/19 07/28/19 (DRISDOL)] Gabapentin [Neurontin] 100 mg PO HS 07/28/19 07/28/19 Glimepiride [Amaryl] 1 mg PO DAILY 07/28/19 07/28/19 Oxybutynin ER [Ditropan XL] 10 mg PO DAILY 07/28/19 07/28/19 Pantoprazole Sodium 40 mg PO DAILY 07/28/19 07/28/19 Previous Rx's Medication Instructions Recorded Aspirin [Adult Low Dose Aspirin EC] 81 mg PO DAILY 90 Days #90 10/18/17 tablet. Atorvastatin [Lipitor] 20 mg PO DAILY #30 tab 10/18/17 Ibuprofen [Motrin] 600 mg PO Q8HR PRN #30 tab 06/11/19 Allergies Allergy/AdvReac Type Severity Reaction Status Date / Time No Known Allergies Allergy Verified 06/15/22 19:13 Review of Systems ROS Other: All systems not noted in ROS Statement are negative. <Otis Quiñones - Last Filed: 06/14/23 23:58> ROS Other: All systems not noted in ROS Statement are negative. <Ivan Leonard - Last Filed: 06/15/23 01:37> ROS Statement: Those systems with pertinent positive or pertinent negative responses have been documented in the HPI. Past Medical History Past Medical History: Chest Pain / Angina, Diabetes Mellitus, GERD/Reflux, Hypertension, Myocardial Infarction ([place]), Prostate Disorder Additional Past Medical History / Comment(s): enlarged prostate, chronic low back pain with degenerative disc disease, Chronic lymphocytic leukemia Last Myocardial Infarction Date:: 10/09/2015 History of Any Multi-Drug Resistant Organisms: None Reported Past Surgical History: Appendectomy, Heart Catheterization With Stent Additional Past Surgical History / Comment(s): heart cath with 2 stents to circ. Past Anesthesia/Blood Transfusion Reactions: No Reported Reaction Date of Last Stent Placement:: 10/09/15 Past Psychological History: No Psychological Hx Reported Smoking Status: Never smoker Past Alcohol Use History: None Reported Past Drug Use History: None Reported - Past Family History Father Family Medical History: Diabetes Mellitus Mother Family Medical History: Diabetes Mellitus <Otis Quiñones - Last Filed: 06/14/23 23:58> General Exam Limitations: no limitations General appearance: alert, in no apparent distress Head exam: Present: atraumatic, normocephalic Eye exam: Present: normal appearance, EOMI. Absent: scleral icterus, conj unctival injection, periorbital swelling, periorbital tenderness ENT exam: Present: normal oropharynx, mucous membranes moist Neck exam: Present: full ROM. Absent: tenderness, meningismus Respiratory exam: Present: normal lung sounds bilaterally. Absent: respiratory distress, accessory muscle use Cardiovascular Exam: Present: regular rate, normal rhythm GI/Abdominal exam: Present: soft. Absent: distended, tenderness, guarding, rebound, rigid Extremities exam: Present: full ROM, normal capillary refill. Absent: tenderness, pedal edema, joint swelling Back exam: Present: full ROM. Absent: tenderness, CVA tenderness (R), CVA tenderness (L), rash noted Neurological exam: Present: alert, oriented X3, CN II-XII intact Expanded Patient oriented to: Present: person, place, time Speech: Present: fluid speech Cranial nerves: EOM's Intact: Normal, Gag Reflex: Normal, Tongue Deviation: Normal Motor strength exam: RUE: 5, LUE: 5, RLE: 5, LLE: 5 Eye Response: (4) open spontaneously Motor Response: (6) obeys commands Verbal Response: (5) oriented [place] Total: 15 Psychiatric exam: Present: normal affect, normal mood Skin exam: Present: warm, dry, normal color. Absent: cyanosis, diaphoretic, petechiae, pallor <Otis Quiñones - Last Filed: 06/14/23 23:58> Course Vital Signs 06/14/23 20:11 Temperature 97.9 F Pulse Rate 70 Respiratory 22 Rate Blood Pressure 152/66 O2 Sat by Pulse 100 Oximetry EKG Findings - EKG Results: EKG: sinus rhythm (EKG interpreted by me shows sinus rhythm with a ventricular rate of 67, RI interval 0.139, QRS 0.88, QTc 0.396 normal axis) <Otis Quiñones - Last Filed: 06/14/23 23:58> Medical Decision Making <Otis Quiñones - Last Filed: 06/14/23 23:58> - Lab Data Result diagrams: 06/14/23 23:39 <Ivan Leonard - Last Filed: 06/15/23 01:37> - Medical Decision Making 57-year-old male, alert and oriented 4 presents to the emergency room with complaints of dizziness, right frontal headache behind right eye and body aches for a week. Patient states worsening headache over the past couple of days, comes and goes. He has had a history of dizziness and headaches for the past 4 years. Did see a neurologist with no definitive diagnosis. Yesterday when he was driving the headache got really bad although he states was able to continue driving. Patient did have a CT of the brain 12/25/2022 with no acute process. He was given referral to neurology however he states he did not follow-up. Patient's had multiple brain CTs, CT angiogram February 2018 which showed [place] within normal limits. 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 No significant flow-limiting stenosis bilateral carotid bifurcations. Patient ambulating in the hallway. Labs and x-ray are pending. Case was signed out to Dr. Leonard for disposition. Was pt. sent in by a medical professional or institution (, PA, POLICE ACADEMY INSTRUCTOR, urgent care, hospital, or half-way...) When possible be specific @ -[No] Did you speak to anyone other than the patient for history (EMS, parent, family, police, friend...)? What history was obtained from this source @ -[No] Did you review nursing and triage notes (agree or disagree)? Why? @ -[I reviewed and agree with nursing and triage notes] Were old charts reviewed (outside hosp., previous admission, EMS record, old EKG, old radiological studies, urgent care reports/EKG's, half-way records)? Report findings @ -Previous CT imaging was reviewed Differential Diagnosis (chest pain, altered mental status, abdominal pain women, abdominal pain men, vaginal bleeding, weakness, fever, dyspnea, syncope, headache, dizziness, GI bleed, back pain, seizure, CVA, palpatations, mental health, musculoskeletal)? @ -Differential Dizziness: Benign paroxysmal positional Vertigo, Menieres disease, otitis media, acoustic neuroma, vertebrobasilar insufficiency, cerebellar stroke, encephalitis, hypovolemic, arrhythmia, coronary artery syndrome, anemia, this is not meant to be an all-inclusive list Differential Headache: Migraine, tension, cluster, carbon monoxide, central venous thrombosis, pension [place]arma temporal arteritis, acute closure glaucoma, intercranial hemorrhage, mastoiditis, sinusitis, head injury, this is not meant to be an all-inclusive list. EKG interpreted by me (3pts min.). @ -yes EKG interpreted by me shows sinus rhythm with a ventricular rate of 67, RI interval 0.139, QRS 0.88, QTc 0.396 normal axis X-rays interpreted by me (1pt min.). @ -[None done] CT interpreted by me (1pt min.). @ -[None done] U/S interpreted by me (1pt. min.). @ -[None done] What testing was considered but not performed or refused? (CT, X-rays, U/S, labs)? Why? @ -[None] What meds were considered but not given or refused? Why? @ -[None] Did you discuss the management of the patient with other professionals (professionals i.e. , PA, POLICE ACADEMY INSTRUCTOR, lab, RT, psych nurse, social science professor, informatics manager, teacher, commanding officer garage, shelter case manager)? Give summary @ -[No] Was smoking cessation discussed for >3mins.? @ -[No] Was critical care preformed (if so, how long)? @ -[No] Were there social determinants of health that impacted care today? How? (Homelessness, low income, unemployed, alcoholism, drug addiction, transportation, low edu. Level, literacy, decrease access to med. care, fci, rehab)? @ -[No] Was there de-escalation of care discussed even if they declined (Discuss DNR or withdrawal of care, Hospice)? DNR status @ -[No] What co-morbidities impacted this encounter? (DM, HTN, Smoking, COPD, CAD, Cancer, CVA, ARF, Chemo, Hep., AIDS, mental health diagnosis, sleep apnea, morbid obesity)? @ - Medical history of diabetes, hypertension, [place], CLL and chronic low back pain. Surgical history of stent and appendectomy. Was patient admitted / discharged? Hospital course, mention meds given and route, prescriptions, significant lab abnormalities, going to OR and other pertinent info. @ -[hospital course] Undiagnosed new problem with uncertain prognosis? @ -[No] Drug Therapy requiring intensive monitoring for toxicity (Heparin, Nitro, Insulin, Cardizem)? @ -[No] Were any procedures done? @ -[No] Diagnosis/symptom? @ -[default] Acute, or Chronic, or Acute on Chronic? @ -[default] Uncomplicated (without systemic symptoms) or Complicated (systemic symptoms)? @ -[default] Side effects of treatment? @ -[No] Exacerbation, Progression, or Severe Exacerbation? @ -[No] Poses a threat to life or bodily function? How? (Chest pain, [place], [place], pneumonia, PE, COPD, DKA, ARF, appy, cholecystitis, CVA, Diverticulitis, Homicidal, Suicidal, threat to staff... and all critical care pts) @ -[No] (Otis Quiñones) Patient is sent out to me by previous shift nurse practitioner, Marques aguilar. Briefly, patient is a 57-year-old [place] male with past medical history of diabetes and hypertension states that he is here for 2-3 days of reported constitutional symptoms and dizziness. Denies sensation of the room spinning. At time of sign out no labs were drawn and patient had been sitting in the ER for approximately 4 and half hours. Patient is afebrile on arrival. Physical examination is benign at 1:30 AM. Vital signs reviewed and found to be unremarkable. No leukocytosis. 4 panel viral PCR is negative. Patient has no high-risk features. He is well-appearing ambulatory without complications. Neurologic exam is unremarkable. Patient refusing further blood draws. Suspect patient suffering from viral disease. Patient appears to be stable for discharge does have a primary care doctor that he agrees to follow up with. Return precautions discussed. (Ivan Leonard) - Lab Data Lab Results 06/14/23 06/14/23 Range/Units 23:39 23:39 WBC 8.3 (3.8-10.6) k/uL RBC 4.89 (4.30-5.90) m/uL Hgb 15.1 (13.0-17.5) gm/dL Hct 44.2 (39.0-53.0) % MCV 90.3 (80.0-100.0) fL MCH 30.8 (25.0-35.0) pg MCHC 34.1 (31.0-37.0) g/dL RDW 13.1 (11.5-15.5) % Plt Count 184 (150-450) k/uL MPV 9.8 Neutrophils % 59 % Lymphocytes % 29 % Monocytes % 8 % Eosinophils % 2 % Basophils % 0 % Neutrophils # 4.9 (1.3-7.7) k/uL Lymphocytes # 2.4 (1.0-4.8) k/uL Monocytes # 0.6 (0-1.0) k/uL Eosinophils # 0.1 (0-0.7) k/uL Basophils # 0.0 (0-0.2) k/uL ESR Cancelled Influenza Type A (PCR) Not Detected (Not Detectd) Influenza Type B (PCR) Not Detected (Not Detectd) RSV (PCR) Not Detected (Not Detectd) SARS-CoV-2 (PCR) Not Detected (Not Detectd) Disposition <Otis Quiñones - Last Filed: 06/14/23 23:58> Is patient prescribed a controlled substance at d/c from ED?: No Time of Disposition: 01:37 <Ivan Leonard - Last Filed: 06/15/23 01:37> Clinical Impression: Dizziness Disposition: HOME SELF-CARE Condition: Good Instructions (If sedation given, give patient instructions): Dizziness (ED) Referrals: Vivian Hamlin MD [Primary Care Provider] - 1-2 days
[2023-06-14] MEDS ORDERED: MECLIZINE 12.5 MG TAB PO STA (22:34)
[2023-06-14] MEDS ORDERED: KETOROLAC 15 MG/ML 1 ML VIAL IVP STA (22:34)
[2023-06-15 00:24] LABS: Basophils % (A) 0 %; Eosinophils # (A) 0.1 k/uL (0-0.7); Eosinophils % (A) 2 %; HCT 44.2 % (39.0-53.0); HGB 15.1 gm/dL (13.0-17.5); Lymphocytes # (A) 2.4 k/uL (1.0-4.8); Lymphocytes % (A) 29 %; MCH 30.8 pg (25.0-35.0); MCHC 34.1 g/dL (31.0-37.0); MCV 90.3 fL (80.0-100.0); Mean Platelet Volume 9.8; Monocytes # (A) 0.6 k/uL (0-1.0); Monocytes % (A) 8 %; Neutrophils # (A) 4.9 k/uL (1.3-7.7); Neutrophils % (A) 59 %; Platelet Count 184 k/uL (150-450); RBC 4.89 m/uL (4.30-5.90); RDW 13.1 % (11.5-15.5); WBC 8.3 k/uL (3.8-10.6)
--- NOTE | 2023-06-15 01:40 | XR ---
EXAMINATION TYPE: XR chest 2V DATE OF EXAM: 06/15/2023 COMPARISON: 07/28/2019. HISTORY: Dizziness. TECHNIQUE: Frontal and lateral views of the chest are obtained. FINDINGS: Unchanged elevation of the right diaphragm. There is no focal air space opacity, pleural e ffusion, or pneumothorax seen. The cardiac silhouette size is within normal limits. The osseous st ructures are intact. IMPRESSION: No acute cardiopulmonary process.
[2023-06-15 02:45] VITALS: BP 135/86; PULSE 62; RESP 18; TEMP 98.2
== END 2023-06-15 02:49 | disposition home or self-care (01) ==
LOC: EC 19:50
DX: R42 Dizziness and giddiness (principal); E11.9 Type 2 diabetes mellitus without complications; I10 Essential (primary) hypertension; I25.2 Old myocardial infarction; K21.9 Gastro-esophageal reflux disease without esophagitis; Z20.822 Contact with and (suspected) exposure to COVID-19; Z79.84 Long term (current) use of oral hypoglycemic drugs; Z79.899 Other long term (current) drug therapy; Z90.49 Acquired absence of other specified parts of digestive tract
CPT/HCPCS: 36415; 93005; 85025; 87636; 71046; 99285; 96374; 96361; J1885

== ENCOUNTER → 2023-07-05 | Outpatient (CLI) | payer MEDICARE ==
--- NOTE | 2023-07-05 14:00 | US ---
EXAMINATION TYPE: US abdomen complete DATE OF EXAM: 07/05/2023 COMPARISON: CLINICAL INDICATION: Male, 57 years old with history of ABD BLOATING R140; Bloating TECHNIQUE: Multiple sonographic images of the abdomen are obtained. FINDINGS: EXAM MEASUREMENTS: Liver Length: 11.8 cm Gallbladder Wall: 0.1 cm Spleen: 8.2 cm Right Kidney: 10.6 x 4.9 x 4.8 cm Left Kidney: 9.5 x 5.0 x 5.3 cm CYLINDER DIE MACHINE OPERATOR NOTES: Limited due to overlying bowel gas Pancreas: Head and tail obscured by overlying bowel gas Liver: Limited visualization, scanned through ribs due to bowel gas Gallbladder: wnl Evidence for sonographic Grimes's sign: neg CBD: Obscured by overlying bowel gas Spleen: Limited visualization Right Kidney: No hydronephrosis or masses seen Left Kidney: Upper medial cortical cystic appearing lesion = 2.6 x 2.3 x 2.5 cm Upper IVC: wnl Abd Aorta: No AAA visualized at time of scan The liver is homogenous. The intrahepatic portion of the IVC and proximal abdominal aorta are within normal limits. There is no evidence of cholelithiasis. Common bile duct is unremarkable. The visu alized portions of the pancreas are homogenous. The spleen is unremarkable. Kidneys are symmetric a nd free of hydronephrosis. No renal lesions are seen. IMPRESSION: 1. No evidence of cholelithiasis or cholecystitis. 2. Left renal cyst with possible mural nodule. A renal mass protocol CT is recommended for further ev aluation. 3. No evidence of hydronephrosis or shadowing renal stones.
== END | disposition home or self-care (01) ==
LOC: RADUSWWP 13:04
PROVIDERS: ATTEND Internal Medicine
DX: N28.1 Cyst of kidney, acquired (principal); R14.0 Abdominal distension (gaseous)
CPT/HCPCS: 76700

== ENCOUNTER → 2023-07-05 | Outpatient (CLI) | payer MEDICARE ==
[2023-07-05 21:35] LABS: ALT 50 U/L (10-49); AST 20 U/L (14-35); Chol/HDL Ratio 2.16 Ratio; LDL Cholesterol,Calculated 78.4 mg/dL (0.0-131.0); VLDL Calculation 10.68 mg/dL (5.00-40.00)
== END | disposition home or self-care (01) ==
LOC: LABWHC1 12:46
PROVIDERS: ATTEND Internal Medicine Cardiovascular Disease
DX: E78.2 Mixed hyperlipidemia (principal)
CPT/HCPCS: 36415; 80061; 84450; 84460

== ENCOUNTER 2023-09-08 03:17 | Inpatient (IN) | payer MEDICARE, OTHER ==
[2023-09-08] MEDS ORDERED: FAMOTIDINE 20 MG/2 ML VIAL IV STA (04:06)
[2023-09-08] MEDS ORDERED: SODIUM CHLORIDE 0.9% 500 ML 500 ML IV STA (04:06)
[2023-09-08 04:13] LABS: Basophils % (A) 0 %; Eosinophils # (A) 0.1 k/uL (0-0.7); Eosinophils % (A) 2 %; HCT 44.4 % (39.0-53.0); HGB 15.1 gm/dL (13.0-17.5); Lymphocytes # (A) 1.9 k/uL (1.0-4.8); Lymphocytes % (A) 26 %; MCH 30.3 pg (25.0-35.0); MCHC 33.9 g/dL (31.0-37.0); MCV 89.2 fL (80.0-100.0); Mean Platelet Volume 9.3; Monocytes # (A) 0.6 k/uL (0-1.0); Monocytes % (A) 8 %; Neutrophils # (A) 4.5 k/uL (1.3-7.7); Neutrophils % (A) 62 %; Platelet Count 198 k/uL (150-450); RBC 4.98 m/uL (4.30-5.90); RDW 12.1 % (11.5-15.5); WBC 7.2 k/uL (3.8-10.6)
[2023-09-08 04:36] LABS: ALT 36 U/L (4-49); African American GFR (CKD) >90 (>60 ml/min/1.73 sqM); Albumin 4.4 g/dL (3.5-5.0); Amylase 134 U/L (30-110); Anion Gap 12 mmol/L; Blood Urea Nitrogen 10 mg/dL (9-20); Calcium 9.2 mg/dL (8.4-10.2); Carbon Dioxide 20 mmol/L (22-30); Chloride 99 mmol/L (98-107); Glucose 234 mg/dL (74-99); Lipase 1864 U/L (23-300); Non-African American GFR(CKD) >90 (>60 ml/min/1.73 sqM); Sodium 131 mmol/L (137-145); Total Bilirubin 0.8 mg/dL (0.2-1.3); Total Protein 7.3 g/dL (6.3-8.2)
[2023-09-08 04:38] LABS: AST 28 U/L (17-59); Alkaline Phosphatase 94 U/L (38-126)
[2023-09-08] MEDS ORDERED: MORPHINE SULFATE 4 MG/ML SYRINGE IV STA (05:56)
[2023-09-08 05:59] LABS: Appearance,Urine Clear (Clear); Bilirubin,Urine Negative (Negative); Blood,Urine Negative (Negative); Color,Urine Colorless; Glucose,Urine (UA) 4+ (Negative); Ketones,Urine Negative (Negative); Leukocyte Esterase,Urine Negative (Negative); Nitrite,Urine Negative (Negative); PH, Urine 5.5 (5.0-8.0); Protein,Urine Negative (Negative); Specific Gravity,Urine 1.022 (1.001-1.035); Urobilinogen,Urine <2.0 mg/dL (<2.0)
--- NOTE | 2023-09-08 08:54 | CT ---
EXAMINATION TYPE: CT abdomen pelvis wo con DATE OF EXAM: 09/08/2023 COMPARISON: 03/07/2018 HISTORY: mid abd pain CT DLP: 299.5 mGycm Examination of the solid and hollow viscera is limited given the lack of contrast. FINDINGS: LUNG BASES: No evidence for nodule. No evidence for infiltrate. LIVER/GB: The gallbladder is unremarkable. No space-occupying hepatic lesion. PANCREAS: Mild fullness and stranding suggested in the region of the pancreatic tail and distal body. Correlate for mild changes of acute pancreatitis with amylase and lipase. No evidence for abscess. SPLEEN: No evidence for splenomegaly. No intrasplenic lesions seen. ADRENALS: No adrenal nodules identified. No evidence for thickening. KIDNEYS: Hypoattenuating lesion upper pole left kidney measuring 2.2 cm No nephrolithiasis. No hydron ephrosis. BOWEL: Appendix is surgically absent. No evidence of bowel obstruction. No inflammatory process. Lymph nodes: No evidence for adenopathy greater than 1 cm. Abdominal aorta: Atheromatous changes seen. No evidence for aneurysm. Genital organs: No significant abnormality. Other: No significant abnormality. IMPRESSION: Mild fullness and stranding suggested in the region of the pancreatic tail and distal body. Correlate for mild changes of acute pancreatitis with amylase and lipase.
--- NOTE | 2023-09-08 09:02 | ED ---
Medical Decision Making - Medical Decision Making Patient care signed out to me by previous shift physician, Dr. Adorno. Briefly, patient is a 57-year-old male with elevated lipase level. Plan I Was to Follow-Up with Pending CT Imaging. Patient Evaluated at Bedside and Found to Be in Stable Medical Condition. Labs Reviewed. Lipase Levels 1864. At This Point Is Unclear What Is Causing Patient's Pancreatitis. No evidence of gallstone pancreatitis. Liver enzymes are negative. Patient does not consume alcohol. No pancreatic mass Patient will be admitted for inpatient care. - Lab Data Result diagrams: 09/08/23 03:50 09/08/23 03:50 Lab Results 09/08/23 09/08/23 09/08/23 Range/Units 03:50 03:50 03:50 WBC 7.2 (3.8-10.6) k/uL RBC 4.98 (4.30-5.90) m/uL Hgb 15.1 (13.0-17.5) gm/dL Hct 44.4 (39.0-53.0) % MCV 89.2 (80.0-100.0) fL MCH 30.3 (25.0-35.0) pg MCHC 33.9 (31.0-37.0) g/dL RDW 12.1 (11.5-15.5) % Plt Count 198 (150-450) k/uL MPV 9.3 Neutrophils % 62 % Lymphocytes % 26 % Monocytes % 8 % Eosinophils % 2 % Basophils % 0 % Neutrophils # 4.5 (1.3-7.7) k/uL Lymphocytes # 1.9 (1.0-4.8) k/uL Monocytes # 0.6 (0-1.0) k/uL Eosinophils # 0.1 (0-0.7) k/uL Basophils # 0.0 (0-0.2) k/uL Sodium 131 L (137-145) mmol/L Potassium 4.0 (3.5-5.1) mmol/L Chloride 99 (98-107) mmol/L Carbon Dioxide 20 L (22-30) mmol/L Anion Gap 12 mmol/L BUN 10 (9-20) mg/dL Creatinine 0.49 L (0.66-1.25) mg/dL Est GFR (CKD-EPI)AfAm >90 (>60 ml/min/1.73 sqM) Est GFR (CKD-EPI)NonAf >90 (>60 ml/min/1.73 sqM) Glucose 234 H (74-99) mg/dL Calcium 9.2 (8.4-10.2) mg/dL Total Bilirubin 0.8 (0.2-1.3) mg/dL AST 28 (17-59) U/L ALT 36 (4-49) U/L Alkaline Phosphatase 94 (38-126) U/L C-Reactive Protein 1.7 H (<1.0) mg/dL Total Protein 7.3 (6.3-8.2) g/dL Albumin 4.4 (3.5-5.0) g/dL Amylase 134 H (30-110) U/L Lipase 1864 H (23-300) U/L Urine Color Urine Appearance (Clear) Urine pH (5.0-8.0) Ur Specific [place] (1.001-1.035) Urine Protein (Negative) Urine Glucose (UA) (Negative) Urine Ketones (Negative) Urine Blood (Negative) Urine Nitrite (Negative) Urine Bilirubin (Negative) Urine Urobilinogen (<2.0) mg/dL Ur Leukocyte Esterase (Negative) 09/08/23 Range/Units 04:27 WBC (3.8-10.6) k/uL RBC (4.30-5.90) m/uL Hgb (13.0-17.5) gm/dL Hct (39.0-53.0) % MCV (80.0-100.0) fL MCH (25.0-35.0) pg MCHC (31.0-37.0) g/dL RDW (11.5-15.5) % Plt Count (150-450) k/uL MPV Neutrophils % % Lymphocytes % % Monocytes % % Eosinophils % % Basophils % % Neutrophils # (1.3-7.7) k/uL Lymphocytes # (1.0-4.8) k/uL Monocytes # (0-1.0) k/uL Eosinophils # (0-0.7) k/uL Basophils # (0-0.2) k/uL Sodium (137-145) mmol/L Potassium (3.5-5.1) mmol/L Chloride (98-107) mmol/L Carbon Dioxide (22-30) mmol/L Anion Gap mmol/L BUN (9-20) mg/dL Creatinine (0.66-1.25) mg/dL Est GFR (CKD-EPI)AfAm (>60 ml/min/1.73 sqM) Est GFR (CKD-EPI)NonAf (>60 ml/min/1.73 sqM) Glucose (74-99) mg/dL Calcium (8.4-10.2) mg/dL Total Bilirubin (0.2-1.3) mg/dL AST (17-59) U/L ALT (4-49) U/L Alkaline Phosphatase (38-126) U/L C-Reactive Protein (<1.0) mg/dL Total Protein (6.3-8.2) g/dL Albumin (3.5-5.0) g/dL Amylase (30-110) U/L Lipase (23-300) U/L Urine Color Colorless Urine Appearance Clear (Clear) Urine pH 5.5 (5.0-8.0) Ur Specific [place] 1.022 (1.001-1.035) Urine Protein Negative (Negative) Urine Glucose (UA) 4+ H (Negative) Urine Ketones Negative (Negative) Urine Blood Negative (Negative) Urine Nitrite Negative (Negative) Urine Bilirubin Negative (Negative) Urine Urobilinogen <2.0 (<2.0) mg/dL Ur Leukocyte Esterase Negative (Negative) Disposition Clinical Impression: Pancreatitis Disposition: ADMITTED IP TO THIS [facility] Condition: Fair Referrals: Vivian Hamlin MD [Primary Care Provider] - 1-2 days Decision Time: 09:07
[2023-09-08] MEDS ORDERED: NALOXONE 0.4 MG/ML 1 ML VIAL IV PRN (09:05)
[2023-09-08] MEDS ORDERED: ONDANSETRON 4 MG/2 ML VIAL IVP PRN (09:05)
[2023-09-08] MEDS: SODIUM CHLORIDE 0.9% 1,000 ML IV SCH ×2 (09:27→17:50)
[2023-09-08] MEDS: MORPHINE SULFATE 4 MG/ML SYRINGE IV PRN ×2 (09:30→19:46)
[2023-09-08 12:39] LABS: Chol/HDL Ratio 1.96 Ratio; LDL Cholesterol,Calculated 45.5 mg/dL (0.0-131.0); VLDL Calculation 16.68 mg/dL (5.00-40.00)
[2023-09-08] MEDS ORDERED: HYDROcodone/APAP 5-325MG 1 EACH TAB PO PRN (15:51)
[2023-09-08] MEDS ORDERED: DEXTROSE 50% SYRINGE 50 ML IVP PRN ×2 (15:52)
--- NOTE | 2023-09-08 15:52 | P.HPIM ---
History of Present Illness H&P Date: 09/08/23 Patient is a 57-year-old male history of hypertension, dyslipidemia, CAD status post stent, type 2 diabetes, leukemia on immunotherapy presenting with abdominal pain. Patient does not speak much Albanian and he is a poor historian. He claims that 3 days ago he started developing epigastric tenderness with some nausea and vomiting. He denies any other chest pain, shortness of breath, urinary or bowel complaints. He denies any recent medication changes. He denies any alcohol use or illicit drug use or recreational drug use, or smoking. In the ED, temperature was 98, pulse 78, respiratory rate 18, blood pressure 163/81, saturating at 98% on room air. WBC 7.2, hemoglobin 15.1, sodium 131, bicarb 20, creatinine 0.49, glucose 234, CRP 1.7, triglyceride 83, lipase 1800. Urinalysis negative. Abdominal pelvis CT shows mild fullness and stranding suggestive in the region of pancreatic tail and distal body concerning for acute pancreatitis. Patient being admitted for acute pancreatitis on IV fluids and pain regimen. Pertinent positives and negatives as discussed in HPI, a complete review of systems was performed and all other systems are negative. Patient seen and examined at bedside. Vital signs reviewed General: nontoxic, no distress, appears at stated age Derm: warm, dry Head: atraumatic, normocephalic, symmetric Eyes: EOMI, no lid lag, anicteric sclera, pupils equal round reactive to light ENT: Nose and ears atraumatic Neck: No thyromegaly, supple Mouth: no lip lesion, mucus membranes moist Cardiovascular: S1S2 reg, no murmur, no edema Lungs: clear to auscultation bilateral, no rhonchi, no rales, no wheeze, no accessory muscle use Abdominal: soft, tender to palpation in epigastric region, no guarding, no appreciable organomegaly Ext: no gross muscle atrophy, muscle strength muscle strength 5 out of 5 in all 4 extremities, no contractures Neuro: CN II-XII grossly intact Psych: Alert, oriented, appropriate affect Assessment/Plan: Active: Acute pancreatitis of Unclear etiology -Patient does not drink any alcohol -Right upper quadrant ultrasound ordered -Could also be drug-induced, patient is on immunotherapy -Continue IV fluids at 1 30 mL an hour, normal saline -IV morphine 4 mg every 4 hours as needed for severe pain, oral Union 5 every 4 hours as needed for moderate pain, monitor respiratory depression Hypovolemic hyponatremia Mild anion gap metabolic acidosis -Continue normal saline at 1 30 mL an hour -Repeat BMP tomorrow Type 2 diabetes -Hold home antidiabetic medications -Started on sliding scale insulin, monitor for hyperglycemia Hypertension - blood pressure within normal limits History of CAD status post stent Dyslipidemia -Continue aspirin 81 mg, atorvastatin 20 mg daily Leukemia -Unknown type, patient is poor historian -Continue immunotherapy The patient is admitted with an anticipated greater than 2 midnight stay as inpatient status for evaluation of acute pancreatitis. Surrogate decision-maker: Friend CODE STATUS: Full code DVT prophylaxis: Lovenox Anticipated discharge date: Pending clinical course Anticipated discharge place: Pending clinical course A total of 55 minutes was spent on the care of this complex patient more than 50% of the time was spent in counseling and care coordination. Past Medical History Past Medical History: Chest Pain / Angina, Diabetes Mellitus, GERD/Reflux, Hypertension, Myocardial Infarction ([place]), Prostate Disorder Additional Past Medical History / Comment(s): enlarged prostate, chronic low back pain with degenerative disc disease, Chronic lymphocytic leukemia Last Myocardial Infarction Date:: 10/09/2015 History of Any Multi-Drug Resistant Organisms: None Reported Past Surgical History: Appendectomy, Heart Catheterization With Stent Additional Past Surgical History / Comment(s): heart cath with 2 stents to circ. Past Anesthesia/Blood Transfusion Reactions: No Reported Reaction Date of Last Stent Placement:: 10/09/15 Past Psychological History: No Psychological Hx Reported Smoking Status: Never smoker Past Alcohol Use History: None Reported Past Drug Use History: None Reported - Past Family History Father Family Medical History: Diabetes Mellitus Mother Family Medical History: Diabetes Mellitus Medications and Allergies Home Medications Medication Instructions Recorded Confirmed Type Aspirin [Adult Low Dose Aspirin EC] 81 mg PO DAILY 90 Days #90 10/18/17 09/08/23 Rx tablet. Atorvastatin [Lipitor] 20 mg PO DAILY #30 tab 10/18/17 09/08/23 Rx Glimepiride [Amaryl] 1 mg PO BID-W/MEALS 07/28/19 09/08/23 History Empagliflozin [Jardiance] 10 mg PO DAILY 09/08/23 09/08/23 History Ergocalciferol (Vitamin D2) 1,250 mcg PO Q7D 09/08/23 09/08/23 History [Drisdol (50,000 Iu)] Ketoconazole 2% Shampoo [Nizoral] 1 applic TOPICAL DIRECTED PRN 09/08/23 09/08/23 History Nilotinib HCl [Tasigna] 150 mg PO BID 09/08/23 09/08/23 History Tamsulosin HCl [Flomax] 0.4 mg PO DAILY 09/08/23 09/08/23 History metFORMIN HCL [Glucophage] 500 mg PO BID-W/MEALS 09/08/23 09/08/23 History Allergies Allergy/AdvReac Type Severity Reaction Status Date / Time No Known Allergies Allergy Verified 09/08/23 03:36 Physical Exam Vitals: Vital Signs Temp Pulse Pulse Resp BP BP Pulse Ox 09/08/23 12:30 97.5 F L 61 16 124/75 100 09/08/23 10:17 97.5 F L 65 16 144/83 100 09/08/23 09:31 63 18 132/66 100 09/08/23 06:47 98.7 F 88 18 130/75 98 09/08/23 03:36 98 F 78 18 163/81 98 Intake and Output 09/08/23 09/08/23 09/08/23 06:59 14:59 22:59 Other: Weight 53.07 kg 53.07 kg Results CBC & Chem 7: 09/08/23 03:50 09/08/23 03:50 Labs: Abnormal Lab Results - Last 24 Hours (Table) 09/08/23 09/08/23 09/08/23 Range/Units 03:50 03:50 03:50 Sodium 131 L (137-145) mmol/L Carbon Dioxide 20 L (22-30) mmol/L Creatinine 0.49 L (0.66-1.25) mg/dL Glucose 234 H (74-99) mg/dL C-Reactive Protein 1.7 H (<1.0) mg/dL HDL Cholesterol 64.80 H (40.00-60.00) mg/dL Amylase 134 H (30-110) U/L Lipase 1864 H (23-300) U/L Urine Glucose (UA) (Negative) 09/08/23 Range/Units 04:27 Sodium (137-145) mmol/L Carbon Dioxide (22-30) mmol/L Creatinine (0.66-1.25) mg/dL Glucose (74-99) mg/dL C-Reactive Protein (<1.0) mg/dL HDL Cholesterol (40.00-60.00) mg/dL Amylase (30-110) U/L Lipase (23-300) U/L Urine Glucose (UA) 4+ H (Negative) Thrombosis Risk Factor Assmnt - Choose All That Apply Any of the Below Risk Factors Present?: Yes Each Factor Represents 1 point: Age 41-60 years Other Risk Factors: No Other congenital or acquired thrombophilia - If yes, enter type in comment: No Thrombosis Risk Factor Assessment Total Risk Factor Score: 1 Thrombosis Risk Factor Assessment Level: Low Risk
[2023-09-08] MEDS ORDERED: ACETAMINOPHEN TAB 325 MG TAB PO PRN (15:54)
[2023-09-08 17:18] LABS: Glucose,Whole Blood 108 mg/dL (70-110)
[2023-09-08] MEDS: INSULIN ASPART (NovoLOG) 100 UNIT/ML VIAL SQ SCH ×2 (17:31→20:01)
--- NOTE | 2023-09-08 17:45 | US ---
EXAMINATION TYPE: US abdomen limited DATE OF EXAM: 09/08/2023 COMPARISON: NONE CLINICAL INDICATION: Male, 57 years old with history of pancreatitis; pain pancreatitis limited due t o over lying bowel gas TECHNIQUE: Multiple sonographic images of the right upper quadrant are obtained. FINDINGS: EXAM MEASUREMENTS: Liver Length: 11.7 cm Gallbladder Wall: .1 cm CBD: .3 cm Right Kidney: 9.8 x 4.9 x 3.7 cm CASH MANAGEMENT OFFICER NOTES: Pancreas: Obscured by bowel gas Liver: Increased attenuation Gallbladder: No stones seen Evidence for sonographic Grimes's sign: No CBD: wnl Right Kidney: No hydronephrosis or masses seen IMPRESSION: 1. Pancreas obscured by bowel gas and pancreatitis cannot be excluded. 2. No other significant abnormality seen.
[2023-09-08] MEDS: PATIENT'S OWN (Nilotinib Hcl [Tasigna] 150 MG Capsule) PO SCH (19:32)
[2023-09-08 20:02] LABS: Glucose,Whole Blood 86 mg/dL (70-110)
[2023-09-09] MEDS: SODIUM CHLORIDE 0.9% 1,000 ML IV SCH ×2 (01:16→08:48)
[2023-09-09 07:00] LABS: Glucose,Whole Blood 66 mg/dL (70-110)
[2023-09-09] MEDS: INSULIN ASPART (NovoLOG) 100 UNIT/ML VIAL SQ SCH ×2 (07:12→13:10)
[2023-09-09 08:18] LABS: Glucose,Whole Blood 141 mg/dL (70-110)
[2023-09-09 08:34] VITALS: RESP 16
[2023-09-09] MEDS ORDERED: TAMSULOSIN 0.4 MG CAP.ER.24H PO SCH (09:00)
[2023-09-09] MEDS ORDERED: ATORVASTATIN 20 MG TAB PO SCH (09:00)
[2023-09-09] MEDS ORDERED: ASPIRIN 81 MG PO SCH (09:00)
[2023-09-09] MEDS ORDERED: ENOXAPARIN 40 MG/0.4 ML SYRINGE SQ SCH (09:00)
[2023-09-09 11:58] LABS: Glucose,Whole Blood 69 mg/dL (70-110)
[2023-09-09 12:59] LABS: Glucose,Whole Blood 136 mg/dL (70-110)
[2023-09-09] MEDS: PATIENT'S OWN (Nilotinib Hcl [Tasigna] 150 MG Capsule) PO SCH (13:09)
[2023-09-09 13:17] VITALS: BP 134/77; PULSE 67; TEMP 97.7
--- NOTE | 2023-09-09 13:45 | P.DS ---
Providers Date of admission: 09/08/23 09:06 Expected date of discharge: 09/09/23 Attending physician: Francisco Javier Mohr MD Primary care physician: Vivian Hamlin [facility] Hospital Course: Discharge Diagnosis: Acute pancreatitis of Unclear etiology Hypovolemic hyponatremia Mild anion gap metabolic acidosis Type 2 diabetes Hypertension History of CAD status post stent Dyslipidemia Leukemia Hospital Course: 57-year-old male history of hypertension, dyslipidemia, CAD status post stent, type 2 diabetes, leukemia on immunotherapy presenting with abdominal pain. In the ED, temperature was 98, pulse 78, respiratory rate 18, blood pressure 163/81, saturating at 98% on room air. WBC 7.2, hemoglobin 15.1, sodium 131, bicarb 20, creatinine 0.49, glucose 234, CRP 1.7, triglyceride 83, lipase 1800. Urinalysis negative. Abdominal pelvis CT shows mild fullness and stranding suggestive in the region of pancreatic tail and distal body concerning for acute pancreatitis. Patient being admitted for acute pancreatitis on IV fluids and pain regimen. Pain improved. Able to tolerate oral intake. Unclear etiology of pancreatitis. Possibly related to his immunotherapy. Patient will need to follow-up with his PCP and oncologist to determine change in his medications. Patient seen and examined at bedside. Vital signs reviewed and stable. General: nontoxic, no distress, appears at stated age Derm: warm, dry Head: atraumatic, normocephalic, symmetric Eyes: EOMI, no lid lag, anicteric sclera Mouth: no lip lesion, mucus membranes moist Cardiovascular: S1S2 reg, no murmur Lungs: CTA bilateral, no rhonchi, no rales , no accessory muscle use Abdominal: soft, nontender to palpation, no guarding, no appreciable organomegaly Ext: no gross muscle atrophy, no edema, no contractures Neuro: CN II-XI grossly intact, no focal neuro deficits Psych: Alert, oriented, appropriate affect A total of 33 minutes of time were spent preparing this complex discharge summary. Patient was discharged on 09/09/23 at 13:42. Patient Condition at Discharge: Stable Plan - Discharge Summary Discharge Rx Participant: No New Discharge Prescriptions: Continue Atorvastatin [Lipitor] 20 mg PO DAILY #30 tab Aspirin [Adult Low Dose Aspirin EC] 81 mg PO DAILY 90 Days #90 tablet. Glimepiride [Amaryl] 1 mg PO BID-W/MEALS Ketoconazole 2% Shampoo [Nizoral] 1 applic TOPICAL DIRECTED PRN PRN Reason: Skin Irritation Ergocalciferol (Vitamin D2) [Drisdol (50,000 Iu)] 1,250 mcg PO Q7D metFORMIN HCL [Glucophage] 500 mg PO BID-W/MEALS Tamsulosin HCl [Flomax] 0.4 mg PO DAILY Empagliflozin [Jardiance] 10 mg PO DAILY Nilotinib HCl [Tasigna] 150 mg PO BID Discharge Medication List Aspirin [Adult Low Dose Aspirin EC] 81 mg PO DAILY 90 Days #90 tablet.dr 10/18/17 [Rx] Atorvastatin [Lipitor] 20 mg PO DAILY #30 tab 10/18/17 [Rx] Glimepiride [Amaryl] 1 mg PO BID-W/MEALS 07/28/19 [History] Empagliflozin [Jardiance] 10 mg PO DAILY 09/08/23 [History] Ergocalciferol (Vitamin D2) [Drisdol (50,000 Iu)] 1,250 mcg PO Q7D 09/08/23 [History] Ketoconazole 2% Shampoo [Nizoral] 1 applic TOPICAL DIRECTED PRN 09/08/23 [History] Nilotinib HCl [Tasigna] 150 mg PO BID 09/08/23 [History] Tamsulosin HCl [Flomax] 0.4 mg PO DAILY 09/08/23 [History] metFORMIN HCL [Glucophage] 500 mg PO BID-W/MEALS 09/08/23 [History] Follow up Appointment(s)/Referral(s): Vivian Hamlin MD [Primary Care Provider] - 1-2 days Patient Instructions/Handouts: Pancreatitis (DC) Activity/Diet/Wound Care/Special Instructions: Please see your PCP. Discharge Disposition: HOME SELF-CARE
== END 2023-09-09 14:26 | disposition home or self-care (01) | DRG 439 ==
LOC: EC 03:17 → 5NMEDONC 09:06
PROVIDERS: ADMIT Student in an Organized Health Care Education/Training Program; ATTEND Student in an Organized Health Care Education/Training Program
DX: K85.90 Acute pancreatitis without necrosis or infection, unspecified (principal); C91.10 Chronic lymphocytic leukemia of B-cell type not having achieved remission; E87.1 Hypo-osmolality and hyponatremia; E87.20 Acidosis, unspecified; E11.9 Type 2 diabetes mellitus without complications; Z28.310 Unvaccinated for COVID-19; E86.1 Hypovolemia; E78.5 Hyperlipidemia, unspecified; I10 Essential (primary) hypertension; I25.10 Atherosclerotic heart disease of native coronary artery without angina pectoris; K21.9 Gastro-esophageal reflux disease without esophagitis; G89.29 Other chronic pain; M54.50 Low back pain, unspecified; N40.0 Benign prostatic hyperplasia without lower urinary tract symptoms; I25.2 Old myocardial infarction; Z95.5 Presence of coronary angioplasty implant and graft; Z79.82 Long term (current) use of aspirin; Z79.84 Long term (current) use of oral hypoglycemic drugs; Z79.899 Other long term (current) drug therapy; Z79.69 Long term (current) use of other immunomodulators and immunosuppressants
CPT/HCPCS: 36415; 74176; 76705; 80053; 80061; 81003; 82150; 83036; 83690; 85025; 86140; 99285

== ENCOUNTER 2023-11-26 03:28 | Emergency (ER) | payer MEDICARE, OTHER ==
[2023-11-26 04:17] VITALS: RESP 18
[2023-11-26 04:18] LABS: Basophils % (A) 1 %; Eosinophils # (A) 0.1 k/uL (0-0.7); Eosinophils % (A) 1 %; HCT 44.8 % (39.0-53.0); HGB 15.2 gm/dL (13.0-17.5); Lymphocytes # (A) 2.2 k/uL (1.0-4.8); Lymphocytes % (A) 28 %; MCH 30.4 pg (25.0-35.0); MCHC 33.9 g/dL (31.0-37.0); MCV 89.7 fL (80.0-100.0); Mean Platelet Volume 9.7; Monocytes # (A) 0.5 k/uL (0-1.0); Monocytes % (A) 7 %; Neutrophils # (A) 4.7 k/uL (1.3-7.7); Neutrophils % (A) 61 %; Platelet Count 188 k/uL (150-450); RDW 12.6 % (11.5-15.5); WBC 7.8 k/uL (3.8-10.6)
[2023-11-26 04:26] LABS: Appearance,Urine Clear (Clear); Bilirubin,Urine Negative (Negative); Blood,Urine Negative (Negative); Color,Urine Light Yellow; Glucose,Urine (UA) 4+ (Negative); Ketones,Urine Negative (Negative); Leukocyte Esterase,Urine Negative (Negative); Nitrite,Urine Negative (Negative); Protein,Urine Negative (Negative); Urobilinogen,Urine <2.0 mg/dL (<2.0)
[2023-11-26 04:32] LABS: ALT 28 U/L (4-49); AST 20 U/L (17-59); African American GFR (CKD) >90 (>60 ml/min/1.73 sqM); Albumin 4.2 g/dL (3.5-5.0); Alkaline Phosphatase 87 U/L (38-126); Amylase 79 U/L (30-110); Anion Gap 5 mmol/L; Blood Urea Nitrogen 12 mg/dL (9-20); Calcium 9.3 mg/dL (8.4-10.2); Carbon Dioxide 26 mmol/L (22-30); Chloride 105 mmol/L (98-107); Glucose 177 mg/dL (74-99); Lipase 361 U/L (23-300); Non-African American GFR(CKD) >90 (>60 ml/min/1.73 sqM); Potassium 4.2 mmol/L (3.5-5.1); Sodium 136 mmol/L (137-145); Total Bilirubin 0.7 mg/dL (0.2-1.3); Total Protein 7.3 g/dL (6.3-8.2)
--- NOTE | 2023-11-26 07:04 | ED ---
Abdominal Pain HPI - General Chief Complaint: Abdominal Pain Stated Complaint: Abdominal Pain Time Seen by Provider: 11/26/23 06:13 Source: patient, RN notes reviewed Mode of arrival: ambulatory Limitations: no limitations - History of Present Illness Initial Comments: This is a 58-year-old male who presents to the emergency department for abdominal pain. States that this started a week ago, but has been worse over the last 2 days. Describes this as being diffuse. Reports some radiation of pain into the back. Denies any nausea/vomiting or diarrhea/constipation. This feels similar to a bout of pancreatitis he had a couple of months ago. States t hat just drinking water makes him develop abdominal cramping in the right lower quadrant. MD Complaint: abdominal pain - Related Data Home Medications Medication Instructions Recorded Confirmed Glimepiride [Amaryl] 1 mg PO BID-W/MEALS 07/28/19 11/26/23 Empagliflozin [Jardiance] 10 mg PO DAILY 09/08/23 11/26/23 Nilotinib HCl [Tasigna] 150 mg PO BID 09/08/23 11/26/23 Tamsulosin HCl [Flomax] 0.4 mg PO DAILY 09/08/23 11/26/23 metFORMIN HCL [Glucophage] 500 mg PO BID-W/MEALS 09/08/23 11/26/23 lisinopriL [Zestril] 10 mg PO DAILY 11/26/23 11/26/23 Previous Rx's Medication Instructions Recorded Aspirin [Adult Low Dose Aspirin EC] 81 mg PO DAILY 90 Days #90 10/18/17 tablet. Atorvastatin [Lipitor] 20 mg PO DAILY #30 tab 10/18/17 Dicyclomine [Bentyl] 20 mg PO QID PRN #30 tablet 11/26/23 Allergies Allergy/AdvReac Type Severity Reaction Status Date / Time No Known Allergies Allergy Verified 11/26/23 11:47 Review of Systems ROS Statement: Those systems with pertinent positive or pertinent negative responses have been documented in the HPI. ROS Other: All systems not noted in ROS Statement are negative. Past Medical History Past Medical History: Chest Pain / Angina, Diabetes Mellitus, GERD/Reflux, Hypertension, Myocardial Infarction ([place]), Prostate Disorder Additional Past Medical History / Comment(s): enlarged prostate, chronic low back pain with degenerative disc disease, Chronic lymphocytic leukemia Last Myocardial Infarction Date:: 10/09/2015 History of Any Multi-Drug Resistant Organisms: None Reported Past Surgical History: Appendectomy, Heart Catheterization With Stent Additional Past Surgical History / Comment(s): heart cath with 2 stents to circ. Past Anesthesia/Blood Transfusion Reactions: No Reported Reaction Date of Last Stent Placement:: 10/09/15 Past Psychological History: No Psychological Hx Reported Smoking Status: Never smoker Past Alcohol Use History: None Reported Past Drug Use History: None Reported - Past Family History Father Family Medical History: Diabetes Mellitus Mother Family Medical History: Diabetes Mellitus General Exam Limitations: no limitations General appearance: alert, in no apparent distress Head exam: Present: atraumatic, normocephalic, normal inspection Respiratory exam: Present: normal lung sounds bilaterally. Absent: respiratory distress, wheezes, rales, rhonchi, stridor Cardiovascular Exam: Present: regular rate, normal rhythm, normal heart sounds. Absent: systolic murmur, diastolic murmur, rubs, gallop, clicks GI/Abdominal exam: Present: soft, tenderness (Right side of the abdomen), normal bowel sounds. Absent: distended Neurological exam: Present: alert, oriented X3, CN II-XII intact Psychiatric exam: Present: normal affect, normal mood Skin exam: Present: warm, dry, intact, normal color. Absent: rash Course Vital Signs 11/26/23 11/26/23 11/26/23 03:52 08:32 10:54 Temperature 98.5 F Pulse Rate 72 87 65 Respiratory 18 18 18 Rate Blood Pressure 144/90 119/62 119/53 O2 Sat by Pulse 98 100 99 Oximetry 11/26/23 12:48 Temperature 98.1 F Pulse Rate 78 Respiratory 18 Rate Blood Pressure 111/68 O2 Sat by Pulse 98 Oximetry Medical Decision Making - Medical Decision Making This is a 58-year-old male who presents to the emergency department for abdominal pain. Was pt. sent in by a medical professional or institution? @ -No Did you speak to anyone other than the patient for history? @ -No Did you review nursing and triage notes? @ -Yes, and I agree, it is accurate with regards to the patient's symptoms. Were old charts reviewed? @ -No Differential Diagnosis? @ -Differential Abdominal Pain Men: Appendicitis, cholecystitis, diverticulosis, ischemic bowel, pancreatitis, hepatitis, UTI, gastroenteritis, AAA, incarcerated hernia, bowel obstruction, constipation, inflammatory bowel, hepatitis, peptic ulcer disease, splenic infarction, perforated viscus, testicular torsion, this is not meant to be an all-inclusive list EKG interpreted by me (3pts min.)? @ -Not obtained X-rays interpreted by me (1pt min.)? @ -Not obtained CT interpreted by me (1pt min.)? @ -CT scan of the abdomen and pelvis obtained. My interpretation identifies no dilation of the bowel loops. U/S interpreted by me (1pt. min.)? @ -Not obtained What testing was considered but not performed? (CT, X-rays, U/S, labs)? Why? @ -None What meds were considered but not given? Why? @ -None Did you discuss the management of the patient with other professionals? @ -No Did you reconcile home meds? @ -No Was smoking cessation discussed for >3mins.? @ -No Was critical care preformed (if so, how long)? @ -No Were there social determinants of health that impacted care today? How? (Homelessness, low income, unemployed, alcoholism, drug addiction, transportation, low edu. Level, literacy, decrease access to med. care, [facility], rehab)? @ -No Was there de-escalation of care discussed even if they declined? (Discuss DNR or withdrawal of care, Hospice)? @ -No What co-morbidities impacted this encounter? (DM, HTN, Smoking, COPD, CAD, Cancer, CVA, Hep., AIDS, mental health diagnosis, sleep apnea, morbid obesity)? @ -None Was patient admitted / discharged? @ -Discharged. Lab work obtained and found to be fairly unremarkable. Lipase is mildly elevated at 361, however not to the point to suggest acute pancreatiti s. Urinalysis negative for signs of infection. Computed tomography scan of the abdomen and pelvis obtained demonstrating hypoechogenicity along the sulcus between the pancreatic head and second portion of the duodenum. They advised correlation with amylase and lipase to exclude a groove pancreatitis. Patient's pain however is predominately right sided and in the RLQ specifically. No abnormalities in this region were identified on the computed tomography scan. Patient initially treated with IV fluids, Toradol, and Morphine with some improvement in symptoms. He was then given Bentyl and a GI cocktail, which he found was much more beneficial. He was tolerating oral intake afterwards without any return of pain/cramping, and felt stable for discharge home. Rx for Bentyl provided with dosing instructions reviewed. Also advised close follow-up with his primary care provider. Undiagnosed new problem with uncertain prognosis? @ -None Drug Therapy requiring intensive monitoring for toxicity (Heparin, Nitro, Insulin, Cardizem)? @ -None Were any procedures done? @ -None Diagnosis/symptom? @ -Abdominal pain Acute, or Chronic, or Acute on Chronic? @ -Acute Uncomplicated (without systemic symptoms) or Complicated (systemic symptoms)? @ -Uncomplicated Side effects of treatment? @ -None Exacerbation, Progression, or Severe Exacerbation] @ -Not applicable Poses a threat to life or bodily function? @ -No Return precautions reviewed in depth, the patient is instructed to return to the emergency department with any new, worsening, or concerning symptoms. Patient verbalized understanding. This case was discussed in detail with the attending ED physician, Dr. Mcclellan. Presentation, findings, and treatment plan discussed in detail as well. - Lab Data Result diagrams: 11/26/23 03:54 11/26/23 03:54 Lab Results 11/26/23 11/26/23 11/26/23 Range/Units 03:54 03:54 03:54 WBC 7.8 (3.8-10.6) k/uL RBC 5.00 (4.30-5.90) m/uL Hgb 15.2 (13.0-17.5) gm/dL Hct 44.8 (39.0-53.0) % MCV 89.7 (80.0-100.0) fL MCH 30.4 (25.0-35.0) pg MCHC 33.9 (31.0-37.0) g/dL RDW 12.6 (11.5-15.5) % Plt Count 188 (150-450) k/uL MPV 9.7 Neutrophils % 61 % Lymphocytes % 28 % Monocytes % 7 % Eosinophils % 1 % Basophils % 1 % Neutrophils # 4.7 (1.3-7.7) k/uL Lymphocytes # 2.2 (1.0-4.8) k/uL Monocytes # 0.5 (0-1.0) k/uL Eosinophils # 0.1 (0-0.7) k/uL Basophils # 0.0 (0-0.2) k/uL Sodium 136 L (137-145) mmol/L Potassium 4.2 (3.5-5.1) mmol/L Chloride 105 (98-107) mmol/L Carbon Dioxide 26 (22-30) mmol/L Anion Gap 5 mmol/L BUN 12 (9-20) mg/dL Creatinine 0.59 L (0.66-1.25) mg/dL Est GFR (CKD-EPI)AfAm >90 (>60 ml/min/1.73 sqM) Est GFR (CKD-EPI)NonAf >90 (>60 ml/min/1.73 sqM) Glucose 177 H (74-99) mg/dL Plasma Lactic Acid Yury 0.9 (0.7-2.0) mmol/L Calcium 9.3 (8.4-10.2) mg/dL Total Bilirubin 0.7 (0.2-1.3) mg/dL AST 20 (17-59) U/L ALT 28 (4-49) U/L Alkaline Phosphatase 87 (38-126) U/L Total Protein 7.3 (6.3-8.2) g/dL Albumin 4.2 (3.5-5.0) g/dL Amylase 79 (30-110) U/L Lipase 361 H (23-300) U/L Urine Color Urine Appearance (Clear) Urine pH (5.0-8.0) Ur Specific Garner (1.001-1.035) Urine Protein (Negative) Urine Glucose (UA) (Negative) Urine Ketones (Negative) Urine Blood (Negative) Urine Nitrite (Negative) Urine Bilirubin (Negative) Urine Urobilinogen (<2.0) mg/dL Ur Leukocyte Esterase (Negative) 11/26/23 Range/Units 04:12 WBC (3.8-10.6) k/uL RBC (4.30-5.90) m/uL Hgb (13.0-17.5) gm/dL Hct (39.0-53.0) % MCV (80.0-100.0) fL MCH (25.0-35.0) pg MCHC (31.0-37.0) g/dL RDW (11.5-15.5) % Plt Count (150-450) k/uL MPV Neutrophils % % Lymphocytes % % Monocytes % % Eosinophils % % Basophils % % Neutrophils # (1.3-7.7) k/uL Lymphocytes # (1.0-4.8) k/uL Monocytes # (0-1.0) k/uL Eosinophils # (0-0.7) k/uL Basophils # (0-0.2) k/uL Sodium (137-145) mmol/L Potassium (3.5-5.1) mmol/L Chloride (98-107) mmol/L Carbon Dioxide (22-30) mmol/L Anion Gap mmol/L BUN (9-20) mg/dL Creatinine (0.66-1.25) mg/dL Est GFR (CKD-EPI)AfAm (>60 ml/min/1.73 sqM) Est GFR (CKD-EPI)NonAf (>60 ml/min/1.73 sqM) Glucose (74-99) mg/dL Plasma Lactic Acid Yury (0.7-2.0) mmol/L Calcium (8.4-10.2) mg/dL Total Bilirubin (0.2-1.3) mg/dL AST (17-59) U/L ALT (4-49) U/L Alkaline Phosphatase (38-126) U/L Total Protein (6.3-8.2) g/dL Albumin (3.5-5.0) g/dL Amylase (30-110) U/L Lipase (23-300) U/L Urine Color Light Yellow Urine Appearance Clear (Clear) Urine pH 7.0 (5.0-8.0) Ur Specific Garner 1.020 (1.001-1.035) Urine Protein Negative (Negative) Urine Glucose (UA) 4+ H (Negative) Urine Ketones Negative (Negative) Urine Blood Negative (Negative) Urine Nitrite Negative (Negative) Urine Bilirubin Negative (Negative) Urine Urobilinogen <2.0 (<2.0) mg/dL Ur Leukocyte Esterase Negative (Negative) - Radiology Data Radiology results: report reviewed, image reviewed Disposition Clinical Impression: Abdominal pain Disposition: HOME SELF-CARE Instructions (If sedation given, give patient instructions): Abdominal Pain (ED) Additional Instructions: Return to the emergency department with any new, worsening, or concerning symptoms. You can take the Bentyl up to 4 times daily for abdominal pain and cramping. You can also alternate with Ibuprofen and Tylenol. Follow a bland diet for the next couple of days. Follow up with your primary care provider in 1-2 days. Prescriptions: Dicyclomine [Bentyl] 20 mg PO QID PRN #30 tablet PRN Reason: Gi Upset Is patient prescribed a controlled substance at d/c from ED?: No Referrals: Vivian Hamlin MD [Primary Care Provider] - 1-2 days Time of Disposition: 12:01
[2023-11-26] MEDS: KETOROLAC 15 MG/ML 1 ML VIAL IVP STA (07:22)
[2023-11-26] MEDS: SODIUM CHLORIDE 0.9% 1,000 ML IV STA (07:22)
[2023-11-26] MEDS: MORPHINE SULFATE 2 MG/ML SYRINGE IVP STA (07:23)
--- NOTE | 2023-11-26 08:21 | CT ---
EXAMINATION TYPE: CT abdomen pelvis w con DATE OF EXAM: 11/26/2023 COMPARISON: NONE HISTORY: 58-year-old male Abdominal pain, acute, nonlocalized TECHNIQUE: Contiguous axial scanning of the abdomen and pelvis following administration of 100 ml Iso howard 300 IV contrast. Delayed images through the kidneys and coronal/sagittal reconstructions perform ed. CT DLP: 557.3 mGycm Automated exposure control for dose reduction was used. FINDINGS: LUNG BASES: No significant abnormality is appreciated. LIVER/GB: No significant abnormality is appreciated. PANCREAS: There are some prominent hypoechogenicity along the pancreaticoduodenal groove, axial image s 29 and 30 and coronal image 36. No abnormal fluid collection identified. SPLEEN: No significant abnormality is seen. ADRENALS: No significant abnormality is seen. KIDNEYS: 2.2 cm benign left renal cortical cysts. Symmetric uptake and excretion of contrast from bot h sides. BOWEL: No significant abnormality is seen. Surgical material right lower quadrant may reflect prior appendectomy. There is scattered mild to moderate stool burden. No pericolonic inflammatory change. N o dilated small bowel, free fluid, or free air. LYMPH NODES: No suspicious greater than 1 cm lymph node is identified. OTHER: No significant abnormality is identified. PELVIS: Mild circumferential bladder wall thickening. Prostate gland normal size at 3.4 cm white. Pel agustin phleboliths. No abnormal fluid collection in the pelvis or pelvic lymphadenopathy. BONES: No significant abnormality is identified. IMPRESSION: 1. HYPOECHOGENICITY ALONG THE SULCUS BETWEEN THE PANCREATIC HEAD AND SECOND PORTION OF THE DUODENUM. CORRELATE WITH AMYLASE AND LIPASE LEVELS TO EXCLUDE A GROOVE PANCREATITIS. 2. MILD CIRCUMFERENTIAL BLADDER WALL THICKENING. CORRELATE TO EXCLUDE CYSTITIS.
[2023-11-26] MEDS: MAG HYDROX/AL HYDROX/SIMETH 30 ML, HYOSCYAMINE ELIXIR 10 ML PO STA (10:56)
[2023-11-26] MEDS: DICYCLOMINE 10 MG/ML 2 ML AMP IM STA (10:57)
[2023-11-26] MEDS: traMADol 50 MG STARTER PACK 3 TAB BTL PO STA (12:46)
[2023-11-26] MEDS: IBUPROFEN 600 MG STARTER PACK 4 TAB BTL PO STA (12:46)
[2023-11-26 13:05] VITALS: BP 111/68; PULSE 78; TEMP 98.1
== END 2023-11-26 12:57 | disposition home or self-care (01) ==
LOC: EC 03:28
DX: K76.89 Other specified diseases of liver (principal); E11.9 Type 2 diabetes mellitus without complications; I10 Essential (primary) hypertension; I25.2 Old myocardial infarction; Z79.84 Long term (current) use of oral hypoglycemic drugs; Z79.899 Other long term (current) drug therapy
CPT/HCPCS: 99284; 96374; 96375; 96361 ×2; 96372; 36415; 80053; 82150; 83605; 83690; 85025; 81003; 74177; J0500; J2270; J1885; Q9967

== ENCOUNTER → 2025-02-16 | Outpatient (CLI) | payer MEDICARE, OTHER ==
--- NOTE | 2025-02-16 13:35 | XR ---
EXAMINATION TYPE: XR cervical spine comp DATE OF EXAM: 02/16/2025 12:46 PM INDICATION: Patient age:Male; 59 years old; Reason for study: M54.2ERVICALGIA; PHH, pain COMPARISON: MR cervical spine 04/03/2018 TECHNIQUE: The cervical spine was imaged in 4 projections. Frontal, lateral, odontoid and bilateral o blique. FINDINGS: The osseous structures show normal alignment without evidence of an acute fracture. The intervertebra l disk spaces are preserved. Pedicles are intact. Soft tissues are within normal limits. The odonto id appears intact. Nuchal ligament calcifications demonstrated. IMPRESSION: 1. No fracture or dislocation. 2. No radiographic evidence for significant cervical disc degeneration. [facility], , 02/16/2025 1:32 PM
--- NOTE | 2025-02-16 13:42 | XR ---
EXAMINATION TYPE: XR lumbosacral spine min 4V DATE OF EXAM: 02/16/2025 12:46 PM INDICATION: Patient age:Male; 59 years old; Reason for study: LOW BACK PAIN; PHH. pain COMPARISON: MRI lumbar spine 02/17/2016 TECHNIQUE: Frontal, lateral , bilateral oblique and coned in L5-S1 lateral views of the spine. FINDINGS: There are 5 lumbar type vertebral bodies identified. No evidence of any acute osseous patho logy. No evidence of loss of vertebral body height is seen. There is normal alignment of the lumbar vertebral bodies. Multilevel minimal anterior osteophytosis. Disc spaces appear preserved. Surgical c lips within the right lower abdomen. Mild atherosclerotic calcification of aorta. IMPRESSION: 1. No acute process. 2. Minimal multilevel degenerative disc disease. [facility], , 02/16/2025 1:39 PM
== END | disposition home or self-care (01) ==
LOC: RADXRMAIN 11:57
PROVIDERS: ATTEND Family Medicine
DX: M51.360 Other intervertebral disc degeneration, lumbar region with discogenic back pain only (principal); G89.29 Other chronic pain; M54.2 Cervicalgia
CPT/HCPCS: 72050; 72110